=== PATIENT | female | born 1960 | race Caucasian/White ===

== ENCOUNTER 2017-01-28 10:05 | Emergency (ER) | payer SELFPAY ==
[2017-01-28 10:06] VITALS: BMI 19.4
[2017-01-28 10:13] VITALS: TEMP 98
--- NOTE | 2017-01-28 11:41 | C.PDOC ---
History Of Present Illness 56 y/o female with PMHx of HTN status post Craniotomy for subdural presents to ED with complaints of headache and dizzy/lightheaded when walking and for staple removal. Patient states she has headache since surgery on 01/06, but worse today, possibly because of non compliance with medication, recent travel. denies any new falls. Patient states she saw Dr. Sarbjit Castillo yesterday and was advised to come to ED for staple removal and CT scan of head. Patient denies fever, chills, nausea, vomiting or any other complaints at this time. Patient is poor historian Time Seen by Provider: 01/28/17 10:41 Chief Complaint (Nursing): Headache History Per: Patient, Family History/Exam Limitations: no limitations Onset/Duration Of Symptoms: Days Current Symptoms Are (Timing): Still Present Quality: "Pain" Associated Symptoms: Blurred Vision. denies: Nausea, Vomiting Past Medical History Reviewed: Historical Data, Nursing Documentation, Vital Signs Vital Signs: Last Vital Signs Temp 98 F 01/28/17 10:12 Pulse 80 01/28/17 15:00 Resp 20 01/28/17 15:00 BP 160/95 H 01/28/17 15:00 Pulse Ox 98 01/28/17 15:25 - Medical History PMH: HTN Surgical History: No Surg Hx Family History: States: No Known Family Hx - Social History Hx Tobacco Use: Yes Hx Alcohol Use: No Hx Substance Use: No - Immunization History Hx Tetanus Toxoid Vaccination: No Hx Influenza Vaccination: No Hx Pneumococcal Vaccination: No Review Of Systems Constitutional: Negative for: Fever, Chills Cardiovascular: Negative for: Chest Pain Respiratory: Negative for: Shortness of Breath Gastrointestinal: Negative for: Nausea, Vomiting Skin: Negative for: Rash Neurological: Positive for: Headache, Dizziness. Negative for: Weakness, Numbness Physical Exam - Physical Exam Additional Physical Exam Comments: Constitutional: No acute distress. WDWN. Head: Well healed incision with pepe intact to right Temporal area Eyes: PERRL. EOMI. ENT: Moist mucous membranes. Neck: Supple. Cardiovascular: Regular rate and rhythm. Chest: No tenderness. Respiratory: Clear to auscultation bilaterally. GI: Soft. Nontender. Nondistended. Normoactive bowel sounds. No rebound. No guarding. Back: No CVA and no mid-line tenderness. Musculoskeletal: No tenderness or swelling of extremities. Skin: No rash. Neurologic: Alert, no focal deficit. ED Course And Treatment - Laboratory Results Result Diagrams: 01/28/17 11:41 01/28/17 11:41 O2 Sat by Pulse Oximetry: 98 (RA) Pulse Ox Interpretation: Normal Medical Decision Making Medical Decision Making: Plan: CT head w/o Contrast 1213 pm discussed with radiology. 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 notified that patient hit her head while in ct scan. [address] Chen, who reviewed pt's head ct today with her head cts that were uploaded from hospital in [place]. Per Dr Chen, pt has good post op result, nothing to do at this time, pepe to be removed. Disposition Discussed With Dr.: Zac Chen Doctor Will See Patient In The: Office Counseled Patient/Family Regarding: Studies Performed, Diagnosis, Need For Followup, Rx Given - Disposition Referrals: Leslie Castillo MD [Staff Provider] - Zac Chen MD [Staff Provider] - Disposition: HOME/ ROUTINE Disposition Time: 15:43 Condition: STABLE Additional Instructions: Please take medications for blood pressure as prescribed. Take 3 more days of dexamethasone since you didn't take upon discharge from hospital. COntinue taking Tylenol #3 for pain. Follow up with Dr Castillo and Dr Chen, the neurosurgeon in the next week. Return to ER for any worse symptoms. Prescriptions: Acetaminophen with Codeine [Tylenol with Codeine #3 Tablet] 1 each PO Q4 #10 tablet Dexamethasone [Decadron] 2 mg PO BID #7 tab Instructions: Subdural Hematoma (ED) Forms: [facility] (Korean), General Discharge Instructions - Clinical Impression Clinical Impression: Headache, Removal of suture, Subdural hematoma - PA / CONTROL CLERK [employer]OD [employer] BEVERAGE / Resident Statement MD/DO has reviewed & agrees with the documentation as recorded. - Scribe Statement The provider has reviewed the documentation as recorded by the Myriamibsandra Fields All medical record entries made by the Scribe were at my direction and personally dictated by me. I have reviewed the chart and agree that the record accurately reflects my personal performance of the history, physical exam, medical decision making, and the department course for this patient. I have also personally directed, reviewed, and agree with the discharge instructions and disposition. Suture Removal/Wound Check - Time Time: 15:15 - Chief Complaints Chief complaint: Other (Staple removal ) - Notes: Notes:: 19 pepe removed from well healed incision to right temporal area
[2017-01-28 11:44] LABS: BASO # 0.1 K/uL (0.0-0.2); BASO % 0.7 % (0.0-2.0); EOS % 0.4 % (0.0-4.0); HEMATOCRIT 32.7 % (34.0-47.0); LYMPH % 11.8 % (20.0-40.0); MEAN CELL VOLUME 97.1 fL (81.0-99.0); MEAN CORPUSCULAR HEMOGLOBIN 32.8 pg (27.0-31.0); MEAN CORPUSCULAR HGB CONC 33.8 g/dL (33.0-37.0); MEAN PLATELET VOLUME 7.2 fL (7.2-11.7); MONO # 0.9 K/uL (0.0-0.8); MONO % 11.4 % (0.0-10.0); NRBC % 0.1 % (0.0-2.0); WHITE BLOOD COUNT 8.3 K/uL (4.8-10.8)
[2017-01-28 11:55] LABS: RBC URINE 2 /hpf (0-3); URINE BILIRUBIN NEGATIVE (NEGATIVE); URINE BLOOD NEGATIVE (NEGATIVE); URINE COLOR Yellow (YELLOW); URINE GLUCOSE (UA) NORMAL (Normal); URINE KETONE NEGATIVE (NEGATIVE); URINE LEUKOCYTE ESTERASE NEG Leu/uL (Negative); URINE PROTEIN NEGATIVE (NEGATIVE); WBC URINE 1 /hpf (0-5)
[2017-01-28 11:57] LABS: ALB/GLOB RATIO 1.4 (1.0-2.1); ALKALINE PHOSPHATASE 74 U/L (38-126); ALT/SGPT 82 U/L (9-52); AST/SGOT 25 U/L (14-36); BILIRUBIN,TOTAL 0.7 mg/dL (0.2-1.3); BLOOD UREA NITROGEN 13 mg/dL (7-17); CALCIUM 8.5 mg/dl (8.6-10.4); CARBON DIOXIDE 25 mmol/L (22-30); CHLORIDE 96 mmol/L (98-107); GFR AFRICAN-AMERICAN > 60; GLUCOSE,RANDOM 95 mg/dL (65-105); POTASSIUM 4.3 mmol/L (3.6-5.2); SODIUM 131 mmol/L (132-148); TOTAL PROTEIN 6.8 g/dL (6.3-8.3)
--- NOTE | 2017-01-28 12:14 | CT ---
PROCEDURE: CT HEAD WITHOUT CONTRAST. HISTORY: Headache. recent craniotomy right side for sah COMPARISON: None available. TECHNIQUE: Axial computed tomography images were obtained through the head/brain without intravenous contrast. Radiation dose: Total exam DLP = 709.82 mGy-cm. This CT exam was performed using one or more of the following dose reduction techniques: Automated exposure control, adjustment of the mA and/or kV according to patient size, and/or use of iterative reconstruction technique. FINDINGS: HEMORRHAGE: There is a mixed density right convexity subdural hematoma measuring 9 mm maximum with without significant mass effect, midline shift or herniation. There is focal increased attenuation in the parietal convexity suggesting superimposed small acute hemorrhage. BRAIN: There are mild chronic microangiopathic changes. There is no mass or mass effect. VENTRICLES: There is mild global parenchymal volume loss and proportionate enlargement of the ventricles and cortical sulci, advanced for the patient's age. CALVARIUM: Status post right parietal craniotomy for drainage of intracranial hemorrhage as suggested in the clinical history. PARANASAL SINUSES: Predominantly clear anges. MASTOID AIR CELLS: Predominantly clear. OTHER FINDINGS: None. IMPRESSION: 1. Acute on chronic right convexity subdural hematoma measuring 9 mm in maximum with without significant mass effect, midline shift or herniation. 2. Mild chronic microangiopathic changes. 3. Mild global parenchymal volume loss, slightly advanced for the patient's age the Findings were discussed with MUKESH Ricketts on 01/28/2017 at 12:12 p.m.
[2017-01-28 16:05] VITALS: BP 159/96; PULSE 69; RESP 18; O2SAT 97
== END 2017-01-28 16:10 | disposition home or self-care (01) ==
LOC: C.ER 10:05
DX: R51 Headache (principal); I62.03 Nontraumatic chronic subdural hemorrhage; Z48.02 Encounter for removal of sutures
CPT/HCPCS: 70450; 80053; 81001; 85025; 99285; J8540

== ENCOUNTER 2018-02-18 19:25 | Emergency (ER) | payer SELFPAY ==
[2018-02-18 19:25] VITALS: BMI 19.4
[2018-02-18 19:36] VITALS: TEMP 97.7; O2SAT 99
[2018-02-18] MEDS ORDERED: Sodium Chloride 0.9% 1,000 ML IV ONE (20:00)
[2018-02-18] MEDS ORDERED: Pantoprazole 80 MG in Sodium Chloride 0.9% 100 ML IV STA (20:00)
--- NOTE | 2018-02-18 20:00 | C.PDOC ---
History Of Present Illness Patient presents to the ER with a complaint of abdominal pain for the past 2 days. Patient states she has also noticed blood in her colostomy bag. Denies fever, chills, nausea, vomiting. Time Seen by Provider: 02/18/18 19:54 Chief Complaint (Nursing): Abdominal Pain History Per: Patient History/Exam Limitations: no limitations Onset/Duration Of Symptoms: Days (2) Current Symptoms Are (Timing): Still Present Location Of Pain/Discomfort: Other (Around colostomy) Quality Of Discomfort: Unable To Describe Associated Symptoms: Other (Blood in stoma bag). denies: Fever, Chills, Nausea, Vomiting Exacerbating Factors: None Alleviating Factors: None Recent travel outside of the [place]: No Abnormal Vaginal Bleeding: No Past Medical History Reviewed: Historical Data, Nursing Documentation, Vital Signs Vital Signs: Last Vital Signs Temp 97.7 F 02/18/18 19:30 Pulse 64 02/18/18 19:30 Resp 20 02/18/18 19:30 BP 175/82 H 02/18/18 19:30 Pulse Ox 99 02/18/18 19:30 - Medical History PMH: HTN Family History: States: No Known Family Hx - Social History Hx Tobacco Use: Yes Hx Alcohol Use: No Hx Substance Use: No - Immunization History Hx Tetanus Toxoid Vaccination: No Hx Influenza Vaccination: No Hx Pneumococcal Vaccination: No Review Of Systems Constitutional: Negative for: Fever, Chills Cardiovascular: Negative for: Chest Pain, Palpitations Respiratory: Negative for: Cough, Shortness of Breath Gastrointestinal: Positive for: Abdominal Pain (Around colostomy), Other (Blood in colostomy bag). Negative for: Nausea, Vomiting Neurological: Negative for: Weakness, Numbness, Dizziness Physical Exam - Physical Exam Appears: Non-toxic Skin: Warm, Dry Head: Normacephalic Oral Mucosa: Moist Chest: Symmetrical, No Tenderness Cardiovascular: Rhythm Regular Respiratory: No Rales, No Rhonchi, No Wheezing Gastrointestinal/Abdominal: Soft, Tenderness (Mild around colostomy), Distention (Slightly), No Guarding, No Rebound, Other (Large subumbilical surgical scar, Left sided colostomy, Erythema around stoma no active bleeding) Back: No CVA Tenderness Neurological/Psych: Oriented x3 ED Course And Treatment - Laboratory Results Result Diagrams: 02/18/18 20:10 02/18/18 20:10 ECG: Interpreted By Me, Viewed By Me ECG Rhythm: Sinus Bradycardia, 1st Degree HB (AV) Rate From EC O2 Sat by Pulse Oximetry: 99 (room air) Pulse Ox Interpretation: Normal Progress Note: Blood work, EKG, and urinalysis ordered. IV fluids and protonix administered. Reevaluation Time: 23:10 Reassessment Condition: Improved Medical Decision Making Medical Decision Making: Upon provider reevaluation patient is feeling better, is medically stable, and requires no further treatment in the ED at this time. Patient will be discharged home . Counseling was provided and all questions were answered regarding diag nosis and need for follow up withlali rodgers There is agreement to discharge plan. Return if symptoms persist or worsen. Disposition Counseled Patient/Family Regarding: Studies Performed, Diagnosis, Need For Followup - Disposition Referrals: Leslie Castillo MD [Staff Provider] - Disposition: HOME/ ROUTINE Disposition Time: 20:00 Condition: FAIR Additional Instructions: Please follow up with Instructions: Acute Pelvic Pain (DC), Uterine Fibroids (DC) Forms: [employer] (Iraqi) - Clinical Impression Clinical Impression: Abdominal pain, Visit for wound check, Fibroid uterus - PA / DEVELOPMENT MECHANIC / Resident Statement MD/DO has reviewed & agrees with the documentation as recorded. - Scribe Statement The provider has reviewed the documentation as recorded by the Scribsandra Zaldivar All medical record entries made by the Scribe were at my direction and personally dictated by me. I have reviewed the chart and agree that the record accurately reflects my personal performance of the history, physical exam, medical decision making, and the department course for this patient. I have also personally directed, reviewed, and agree with the discharge instructions and disposition.
[2018-02-18] MEDS ORDERED: Sodium Chloride 0.9% 1,000 ML ONE (20:14)
[2018-02-18 20:21] LABS: BASO # 0.1 K/uL (0.0-0.2); BASO % 0.6 % (0.0-2.0); EOS # 0.1 K/uL (0.0-0.7); EOS % 1.8 % (0.0-4.0); LYMPH # 2.6 K/uL (1.0-4.3); LYMPH % 30.7 % (20.0-40.0); MEAN CELL VOLUME 98.7 fL (81.0-99.0); MEAN CORPUSCULAR HEMOGLOBIN 32.6 pg (27.0-31.0); MONO # 0.8 K/uL (0.0-0.8); MONO % 9.5 % (0.0-10.0); NEUT # 4.9 K/uL (1.8-7.0); NEUT % 57.4 % (50.0-75.0); NRBC % 0.1 % (0.0-2.0); RBC 3.99 Mil/uL (3.80-5.20); RED CELL DISTRIBUTION WIDTH 13.7 % (11.5-14.5); WHITE BLOOD COUNT 8.6 K/uL (4.8-10.8)
[2018-02-18 20:29] LABS: PROTHROMBIN TIME 11.2 SECONDS (9.7-12.2)
[2018-02-18 20:31] LABS: SQUAMOUS EPITHIAL 1 /hpf (0-5); URINE BILIRUBIN NEGATIVE (NEGATIVE); URINE BLOOD NEGATIVE (NEGATIVE); URINE CLARITY Clear (Clear); URINE COLOR Straw (YELLOW); URINE GLUCOSE (UA) NORMAL (Normal); URINE LEUKOCYTE ESTERASE TRACE Leu/uL (Negative); URINE PROTEIN NEGATIVE (NEGATIVE); URINE UROBILINOGEN NORMAL mg/dL (0.2-1.0)
[2018-02-18 20:34] LABS: ALB/GLOB RATIO 1.5 (1.0-2.1); ALBUMIN 4.7 g/dL (3.5-5.0); ALT/SGPT 17 U/L (9-52); AST/SGOT 24 U/L (14-36); BLOOD UREA NITROGEN 24 mg/dL (7-17); CALCIUM 9.4 mg/dl (8.6-10.4); GFR NON-AFRICAN AMERICAN > 60
[2018-02-18] MEDS ORDERED: Iodixanol 320 MG/ML 100 ML BOTTLE IV ONE (22:14)
[2018-02-18 23:21] VITALS: BP 130/80; PULSE 80; RESP 14
--- NOTE | 2018-02-19 11:26 | CT ---
Date of service: 02/18/2018 PROCEDURE: CT Abdomen and Pelvis with contrast HISTORY: abd pain, left colostomy COMPARISON: 09/06/2014 TECHNIQUE: Contrast dose: 100 mL Visipaque 320 Radiation dose: Total exam DLP = 313.59 mGy-cm. This CT exam was performed using one or more of the following dose reduction techniques: Automated exposure control, adjustment of the mA and/or kV according to patient size, and/or use of iterative reconstruction technique. FINDINGS: LOWER THORAX: Unremarkable. LIVER: Unremarkable. No gross lesion or ductal dilatation. GALLBLADDER AND BILE DUCTS: Cholelithiasis. No mural thickening or pericholecystic fluid. PANCREAS: Unremarkable. No gross lesion or ductal dilatation. SPLEEN: Unremarkable. ADRENALS: Right adrenal nodule, 1.3 cm diameter. No significant change from prior CT of 09/06/2014. unremarkable left adrenal. KIDNEYS AND URETERS: Unremarkable. No hydronephrosis. No solid mass. VASCULATURE: Unremarkable. No aortic aneurysm. There is atherosclerotic calcification of the abdominal aorta. BOWEL: Partial left hemicolectomy. Left lower quadrant colostomy. No bowel obstruction. No other abnormal bowel loops. APPENDIX: Not positively identified. No secondary findings to suggest acute appendicitis. PERITONEUM: Unremarkable. No free fluid. No free air. LYMPH NODES: Unremarkable. No enlarged lymph nodes. BLADDER: Suboptimally distended. Mild thickening of the wall likely due to inadequate distention. REPRODUCTIVE: Globular enlarged uterus containing a large extensively calcified fibroid, approximately 6.8 cm in diameter. BONES: No acute fracture. OTHER FINDINGS: None. IMPRESSION: Status post partial left colectomy. Left lower quadrant colostomy. Cholelithiasis without evidence of cholecystitis. Stable right adrenal nodule, likely adenoma. Calcified uterine fibroid. No additional abnormality. The preliminary findings for this examination were reported by [facility] at 11:02 p.m. on 02/18/2018. There is discordance of this report with the preliminary findings. There is not felt to be evidence of enteritis on the basis of this examination.
--- NOTE | 2018-02-19 22:25 | CARD ---
APPROVED REPORT Date of service: 02/18/2018 EKG Measurement Heart [id number] ID [id number] <Conclusion> Sinus bradycardia Otherwise normal ECG
== END 2018-02-18 23:21 | disposition home or self-care (01) ==
LOC: C.ER 19:25
DX: R10.9 Unspecified abdominal pain (principal); D25.9 Leiomyoma of uterus, unspecified; I10 Essential (primary) hypertension; Z72.0 Tobacco use
CPT/HCPCS: 74177; 80053; 81001; 85025; 85610; 85730; 86850; 86900; 93005; 96374; 96375; 99284; C9113; J1885; J7030; Q9967

== ENCOUNTER 2018-05-19 06:30 | Day surgery (SDC) | payer OTHER ==
[2018-05-19 07:02] VITALS: BMI 22.4
[2018-05-19] MEDS ORDERED: Lactated Ringer's 1,000 ML IV ONE (08:20)
--- NOTE | 2018-05-19 08:21 | CP.SDSHP ---
Same Day Surgery H & P - History Proposed Procedure: COLONSCOPY Pre-Op Diagnosis: SEE NOTES - Previous Medical/Surgical History Cardiac: Hypertension Neuro: Other Misc: Other Pain: 4.Moderate Pain Previous Surgical History: COLOSTOMY - Allergies Allergies: Allergies No Known Allergies Allergy (Verified 05/19/18 07:00) - Physical Exam General Appearance: N Vital Signs: Vital Signs 05/19/18 07:20 Temperature 97.8 F Pulse Rate 53 L Respiratory 19 Rate Blood Pressure 123/63 O2 Sat by Pulse 100 Oximetry Mental Status: Alert & Oriented x3 Neuro: WNL Heart: WNL Lungs: WNL GI: Other - {Optional Preform as Required} Breast: WNL Abdomen: Other Rectal: Other Integument: WNL : WNL Ortho: WNL ENT: WNL - Impression Pt. Evaluated Today:Candidate for Anesthesia & Procedure: Yes - Date & Time Time: 08:21 Short Stay Discharge - Short Stay Discharge Admitting Diagnosis/Reason for Visit: DIARRHEA Disposition: HOME/ ROUTINE
[2018-05-19] MEDS ORDERED: Propofol 10 mg/ml Inj (20 ML) ONE ×2 (08:27→08:30)
[2018-05-19 08:56] VITALS: TEMP 96.9
[2018-05-19] MEDS ORDERED: Belladonna-Phenobarbital PO ONE (09:20)
[2018-05-19 09:42] VITALS: O2SAT 100
[2018-05-19 10:28] VITALS: BP 130/67; PULSE 67; RESP 16
== END 2018-05-19 10:20 | disposition home or self-care (01) ==
LOC: C.ENDO 06:30
PROVIDERS: ATTEND Specialist
DX: R19.7 Diarrhea, unspecified (principal); K57.30 Diverticulosis of large intestine without perforation or abscess without bleeding; K64.8 Other hemorrhoids
CPT/HCPCS: 45380; 88305; J2001; J2704; J7120

== ENCOUNTER 2018-07-01 08:35 | Outpatient (CLI) | payer OTHER | END 2018-07-01 08:36 | disposition home or self-care (01) | LOC: C.PAT 08:35 | DX: Z01.818 Encounter for other preprocedural examination (principal); Z93.3 Colostomy status ==

== ENCOUNTER 2018-07-13 05:50 | Inpatient (IN) | payer OTHER ==
[2018-07-13 06:23] VITALS: BMI 23.8
[2018-07-13] MEDS ORDERED: Bupivacaine 0.25% 20 ML INJ IJ ONE (07:42)
[2018-07-13] MEDS ORDERED: Bupivacaine HCl 0.5% PF (10 ml) Inj ONE (07:42)
[2018-07-13] MEDS ORDERED: Lidocaine/Epinephrine 1% 1:100000 10 ML IJ ONE (07:42)
[2018-07-13] MEDS ORDERED: ceFAZolin 1 gm in NS 1 GM/100 ML BAG IVPB ONE ×2 (07:43→09:01)
[2018-07-13] MEDS ORDERED: metroNIDAZOLE IV 500 mg/100 ml 500 MG/100 ML BAG ONE ×2 (07:43→13:44)
[2018-07-13] MEDS ORDERED: Midazolam 2 MG/2 ML VIAL ONE (08:09)
[2018-07-13] MEDS ORDERED: Propofol 10 mg/ml Inj (20 ML) ONE (08:09)
[2018-07-13] MEDS ORDERED: Sodium Citrate/Citric Acid 15 ml Sol PO ONE ×2 (08:30→08:45)
[2018-07-13] MEDS ORDERED: Succinylcholine Chloride 20 mg/ml Syr (5 ml) IV ONE (08:34)
[2018-07-13] MEDS ORDERED: BUPIVACAINE 0.125%/0.9% NACL 600 ML IJ ONE (11:00)
[2018-07-13] MEDS ORDERED: ePHEDrine 50 mg/ml Inj ONE (12:20)
[2018-07-13] MEDS ORDERED: Vasopressin 20 Units/ml Inj ONE (12:23)
[2018-07-13] MEDS ORDERED: Neostigmine 1:1000 (1 mg/ml) Inj ONE (13:18)
[2018-07-13] MEDS ORDERED: ceFAZolin 1 gm in NS 2 GM/200 ML BAG IVPB ONE (13:23)
[2018-07-13] MEDS ORDERED: Morphine 4 MG/ML VIAL ONE (14:27)
--- NOTE | 2018-07-13 14:53 | PCM.SURG1 ---
Surgeon's Initial Post Op Note - Surgeon's Notes Surgeon: Dieter Gavin MD Custom Bookbinder: Lou Saba, PGY-2; ANNA Schneider Type of Anesthesia: General Endo Anesthesia Administered By: Dr Conner Pre-Operative Diagnosis: Colostomy requiring reversal, cholelithiasis Operative Findings: Extensive adhesions, large uterine fibroid, rectal foreign body Post-Operative Diagnosis: Colostomy requiring reversal, cholelithiasis, uterine fibroid requiring resection Operation Performed: Laparotomy, extensive lysis of adhesions, colon resection, rectal resection, primary anastomosis of colon and rectum, rectal foreign body removal, myomectomy, cholecystectomy, and OnQ placement Specimen/Specimens Removed: rectal foreign body, large uterine fibroid, gallbladder, colon and rectal mucosal donuts, colon resection, rectal resection Estimated Blood Loss: EBL {In ML}: 200 Blood Products Given: N/A Drains Used: Xavi Hathaway Post-Op Condition: Fair Date of Surgery/Procedure: 07/13/18 Time of Surgery/Procedure: 14:54
[2018-07-13] MEDS: HYDROmorphone 0.5 mg/0.5 ml ISec IVP PRN ×8 (14:56→22:48)
[2018-07-13] MEDS ORDERED: Acetaminophen IV 1,000 MG in Premixed IV 1 EA IV ONE (14:57)
[2018-07-13] MEDS ORDERED: HYDROmorphone 0.5 mg/0.5 ml ISec ONE ×2 (14:58→15:09)
[2018-07-13] MEDS ORDERED: Lactated Ringer's 1,000 ML IV ONE ×2 (16:59)
[2018-07-13] MEDS: Lactated Ringer's 1,000 ML IV SCH (20:36)
--- NOTE | 2018-07-13 20:51 | CP.PCM.HP ---
Past Patient History - Past Medical History & Family History Past Medical History?: Yes - Past Social History Smoking Status: Light Smoker < 10 Cigarettes Daily - CARDIAC Hx Cardiac Disorders: Yes Hx Heart Attack: No Hx Hypertension: Yes - PULMONARY Hx Respiratory Disorders: No Hx Asthma: No Hx Bronchitis: No Hx Chronic Obstructive Pulmonary Disease (COPD): No Hx Emphysema: No Hx Sleep Apnea: No - NEUROLOGICAL Hx Neurological Disorder: No Hx Alzheimer's Disease: No HX Cerebrovascular Accident: No Hx Dizziness: Yes (hx subdural hematoma 1 year ago) Hx Seizures: No Hx Transient Ischemic Attacks (TIA): No - HEENT Hx HEENT Problems: No - RENAL Hx Chronic Kidney Disease: No - ENDOCRINE/METABOLIC Hx Endocrine Disorders: No Other/Comment: hypokalemia - HEMATOLOGICAL/ONCOLOGICAL Hx Blood Disorders: No Hx Anemia: Yes Hx Blood Transfusions: Yes Hx Blood Transfusion Reaction: No Hx Cancer: No Hx Chemotherapy: No - INTEGUMENTARY Hx Dermatological Problems: No - MUSCULOSKELETAL/RHEUMATOLOGICAL Hx Musculoskeletal Disorders: No Hx Arthritis: No Hx Back Pain: No Hx Falls: Yes (2016; NEEDED SURGERY FOR CRANIAL HEMATOMA) Hx Fractures: No Hx Herniated Disk: No - GASTROINTESTINAL Hx Gastrointestinal Disorders: Yes Hx Bowel Surgery: Yes (COLON RESECTION WITH COLOSTOMY) Hx Colostomy: Yes Hx Diverticulitis: Yes (2017) Hx Gastroesophageal Reflux: Yes - GENITOURINARY/GYNECOLOGICAL Hx Genitourinary Disorders: No - PSYCHIATRIC Hx Psychophysiologic Disorder: Yes Hx Depression: Yes Hx Substance Use: No - SURGICAL HISTORY Hx Surgeries: Yes Hx Section: Yes Hx Tonsillectomy: Yes Other/Comment: Lt forearm. brain surgery. Colon surgery 06/2017, with colosotmy - ANESTHESIA Hx Anesthesia: Yes Hx Anesthesia Reactions: No Hx Malignant Hyperthermia: No Has any member of the family had a problem w/ anesthesia?: No Meds Allergies/Adverse Reactions: Allergies Allergy/AdvReac Type Severity Reaction Status Date / Time No Known Allergies Allergy Verified 05/19/18 07:00 Physical Exam - Constitutional Appears: Well - Head Exam Head Exam: ATRAUMATIC, NORMAL INSPECTION, NORMOCEPHALIC - Eye Exam Eye Exam: EOMI, Normal appearance, PERRL Pupil Exam: NORMAL ACCOMODATION, PERRL - ENT Exam ENT Exam: Mucous Membranes Moist, Normal Exam - Neck Exam Neck exam: Positive for: Normal Inspection - Respiratory Exam Respiratory Exam: Decreased Breath Sounds - Cardiovascular Exam Cardiovascular Exam: REGULAR RHYTHM, +S1, +S2 - GI/Abdominal Exam GI & Abdominal Exam: Diminished Bowel Sounds, Soft - Rectal Exam Rectal Exam: Deferred - Neurological Exam Neurological exam: Oriented x3 Results - Vital Signs Recent Vital Signs: Last Vital Signs Temp 98.3 F 07/13/18 17:45 Pulse 81 07/13/18 17:45 Resp 11 L 07/13/18 17:45 BP 133/83 07/13/18 17:45 Pulse Ox 96 07/13/18 17:45
[2018-07-14] MEDS: Lactated Ringer's 1,000 ML IV SCH ×2 (01:00→11:00)
[2018-07-14] MEDS: HYDROmorphone 0.5 mg/0.5 ml ISec IVP PRN ×4 (01:48→14:53)
--- NOTE | 2018-07-14 02:34 | OP ---
PROCEDURE DATE: 07/13/2018 DESCRIPTION OF PROCEDURE: I was called into the OR by Dr. Gavin, who was doing an exploratory laparotomy with plan for descending colon and rectal resection and colostomy reversal. During the exploratory laparotomy, Dr. Gavin observed the uterus to be enlarged with a mass and I was called in for surgical evaluation. After scrubbing into the case, I further evaluated the uterus and noted it to be enlarged with multiple fibroids. The largest one was along the posterior uterine wall approximately 6 cm in size and noted to be very hard consistent with most likely a calcified fibroid. I advised Dr. Gavin that this was a benign finding and the patient was postmenopausal with no history of bleeding or pelvic pain. He requested removal of that fibroid to allow him better access to this operative field and surgical bowel resection. So, a myomectomy was performed. The uterine myometrium was injected with dilute solution of vasopressin and a vertical incision was made with the Bovie. The incision was extended through the myometrium and the fibroid pseudocapsule. The calcified fibroid was then visualized. To assist in uterine manipulation, the superior portion of the uterus was grasped with a towel clamp. The fibroid was then enucleated with sharp and blunt dissection in the plane between the myometrium and the myoma. This as stated involved blunt and sharp dissection. Good hemostasis was observed. The defect in the myometrium was closed in two layers. The initial layer was running locked suture of 2-0 Vicryl. This was followed by a running and alternately running locked interrupted sutures at the superficial layer. Excellent hemostasis was obtained. Rick Street MD
[2018-07-14 06:46] LABS: BASO % 0.1 % (0.0-2.0); LYMPH # 1.3 K/uL (1.0-4.3); LYMPH % 9.2 % (20.0-40.0); MEAN CELL VOLUME 88.7 fL (81.0-99.0); MEAN CORPUSCULAR HEMOGLOBIN 29.4 pg (27.0-31.0); MEAN CORPUSCULAR HGB CONC 33.2 g/dL (33.0-37.0); MEAN PLATELET VOLUME 8.9 fL (7.2-11.7); MONO # 0.7 K/uL (0.0-0.8); MONO % 4.8 % (0.0-10.0); NEUT # 12.3 K/uL (1.8-7.0); NEUT % 85.9 % (50.0-75.0); PLATELET COUNT 239 K/uL (130-400); RBC 3.73 Mil/uL (3.80-5.20); RED CELL DISTRIBUTION WIDTH 12.7 % (11.5-14.5); WHITE BLOOD COUNT 14.3 K/uL (4.8-10.8)
[2018-07-14 07:33] LABS: ALB/GLOB RATIO 1.4 (1.0-2.1); ALBUMIN 3.2 g/dL (3.5-5.0); ALT/SGPT 28 U/L (9-52); AST/SGOT 47 U/L (14-36); BLOOD UREA NITROGEN 10 mg/dL (7-17); GFR NON-AFRICAN AMERICAN > 60
[2018-07-14 08:23] LABS: MONOCYTE 3 % (0-10); TOTAL CELLS COUNTED 100
[2018-07-14 08:27] LABS: LYMPHOCYTE 6 % (20-40); NEUTROPHIL 63 % (50-75)
[2018-07-14 08:29] LABS: PLATELET ESTIMATE NORMAL (NORMAL)
[2018-07-14 08:30] LABS: GIANT PLATELETS PRESENT; LARGE PLATELETS PRESENT; TOXIC GRANULATION PRESENT
[2018-07-14] MEDS ORDERED: oxyCODONE 5 mg Immediate Release Tab PO PRN (11:08)
--- NOTE | 2018-07-14 13:59 | CP.PCM.PN ---
<Stanislaw Gurrola - Last Filed: 07/14/18 14:01> Subjective - Date & Time of Evaluation Date of Evaluation: 07/14/18 Time of Evaluation: 06:30 - Subjective Subjective: Surgery Progress note- Dr. Gavin Had incisional pain overnight. Moderately controlled with current pain regiment. OnQ rate increased to 7. + flatus, denies BM. Dressing incisions C/D/I w/ minimal strike through. Fabrice drain 95cc serosang fluid. Mason 160cc clear urine. Denies fevers, chills, nausea, vomiting, diarrhea. Objective - Vital Signs/Intake and Output Vital Signs (last 24 hours): Temp Pulse Resp BP Pulse Ox 98.8 F 72 20 136/74 94 L 07/14/18 08:40 07/14/18 08:40 07/14/18 08:40 07/14/18 08:40 07/14/18 08:40 Intake and Output: 07/14/18 07/14/18 06:59 18:59 Intake Total 800 Output Total 270 Balance 530 - Medications Medications: Current Medications Acetaminophen (Tylenol 325mg Tab) 975 mg PO Q6 [facility] Last Admin: 07/14/18 13:40 Dose: 975 mg Cyclobenzaprine HCl (Flexeril) 5 mg PO TID [facility] Docusate Sodium (Colace) 100 mg PO BID [facility] Last Admin: 07/14/18 09:18 Dose: 100 mg Hydromorphone HCl (Dilaudid) 0.5 mg IVP Q3H PRN PRN Reason: Pain, severe (8-10) Last Admin: 07/14/18 08:44 Dose: 0.5 mg BUPIVACAINE 0.125%/0.9% NACL (Bupivacaine-Ns 0.125% On-Q School Patrol) 600 mls @ 4 mls/hr IJ ONCE ONE Stop: 07/19/18 16:59 Lactated Ringer's (Lactated Ringer's) 1,000 mls @ 100 mls/hr IV .Q10H [facility] Last Admin: 07/14/18 11:00 Dose: Not Given Ketorolac Tromethamine (Toradol) 15 mg IVP Q6 PRN PRN Reason: Pain, moderate (4-7) Last Admin: 07/14/18 06:23 Dose: 15 mg Ondansetron HCl (Zofran Inj) 4 mg IVP Q4H PRN PRN Reason: Nausea/Vomiting Oxycodone HCl (Oxycodone Immediate Release Tab) 5 mg PO Q6 PRN PRN Reason: Pain, moderate (4-7) Last Admin: 07/14/18 11:27 Dose: 5 mg - Labs Labs: 07/14/18 06:35 07/14/18 06:35 - Constitutional Appears: Non-toxic, No Acute Distress - Head Exam Head Exam: ATRAUMATIC - Eye Exam Eye Exam: EOMI. absent: Scleral icterus - ENT Exam ENT Exam: Mucous Membranes Moist - Respiratory Exam Respiratory Exam: NORMAL BREATHING PATTERN. absent: Accessory Muscle Use, Respiratory Distress - Cardiovascular Exam Cardiovascular Exam: REGULAR RHYTHM. absent: Bradycardia, Tachycardia - GI/Abdominal Exam GI & Abdominal Exam: Soft, Tenderness (tender around midline incision. Left dressing C/D/I w/ some serosang strikethrough). absent: Distended, Firm, Guarding, Rigid, Rebound Additional comments: Fabrice drain 95cc serosang fluid - Neurological Exam Neurological Exam: Alert, Awake, Oriented x3 - Psychiatric Exam Psychiatric exam: Normal Affect - Skin Skin Exam: Intact, Warm Assessment and Plan - Assessment and Plan (Free Text) Assessment: 58F s/p laparotomy, extensive LARISSA, colon & rectal resection, w/ primary anastomosis, removal of rectal foreign body, myomectomy, cholecystectomy, POD#1 Plan: - Pain control PRN; w/ OnQ, NORA Tylenol & Toradol - start CLD - anti-emetic PRN - d/c Mason, f/u ToV - OOb and ambulate - Incentive spirometer - further recs per Dr. Gavin [facility] <Dieter Gavin - Last Filed: 07/20/18 19:56> Objective - Vital Signs/Intake and Output Vital Signs (last 24 hours): Temp Pulse Resp BP Pulse Ox 97.4 F L 62 26 H 143/66 99 07/20/18 16:00 07/20/18 19:31 07/20/18 19:31 07/20/18 19:31 07/20/18 19:31 Intake and Output: 07/20/18 07/21/18 18:59 06:59 Intake Total 1090 240 Output Total 600 Balance 490 240 - Medications Medications: Current Medications Albuterol/Ipratropium (Duoneb 3 Mg/0.5 Mg (3 Ml) Ud) 3 ml INH RQ4 [facility] Last Admin: 07/20/18 19:31 Dose: 3 ml Amlodipine Besylate (Norvasc) 5 mg PO DAILY [facility] Last Admin: 07/20/18 09:57 Dose: 5 mg Atovaquone (Mepron) 750 mg PO BID [facility]; Protocol Last Admin: 07/20/18 18:18 Dose: 750 mg Docusate Sodium (Colace) 100 mg PO BID [facility] Last Admin: 07/20/18 18:19 Dose: Not Given Famotidine (Pepcid) 20 mg IVP DAILY [facility] Last Admin: 07/20/18 09:56 Dose: 20 mg Fluoxetine HCl (Prozac) 20 mg PO DAILY [facility] Last Admin: 07/20/18 09:56 Dose: 20 mg Heparin Sodium (Porcine) (Heparin) 5,000 units SC Q12H [facility] Last Admin: 07/20/18 08:08 Dose: 5,000 units Hydromorphone HCl (Dilaudid) 0.5 mg IVP Q8H PRN PRN Reason: Pain, severe (8-10) Last Admin: 07/20/18 14:27 Dose: 0.5 mg BUPIVACAINE 0.125%/0.9% NACL (Bupivacaine-Ns 0.125% On-Q School Patrol) 600 mls @ 7 mls/hr IJ ONCE ONE Stop: 07/21/18 01:42 Last Admin: 07/17/18 22:54 Dose: 7 mls/hr Doxycycline Hyclate 100 mg/ (Sodium Chloride) 100 mls @ 100 mls/hr IVPB Q12H [facility]; Protocol Last Admin: 07/20/18 09:57 Dose: 100 mls/hr Lidocaine (Lidoderm) 1 ea TD DAILY [facility] Last Admin: 07/20/18 09:57 Dose: 1 ea Methylprednisolone (Solu-Medrol) 40 mg IVP Q12 [facility] Last Admin: 07/20/18 09:56 Dose: 40 mg Metoprolol Tartrate (Lopressor) 50 mg PO BID [facility] Last Admin: 07/20/18 18:18 Dose: Not Given Potassium Chloride (K-Dur 20 Meq Er Tab) 40 meq PO BRK [facility] Last Admin: 07/20/18 08:08 Dose: 40 meq - Labs Labs: 07/20/18 06:09 07/20/18 06:07 Attending/Attestation - Attestation I have personally seen and examined this patient.: Yes I have fully participated in the care of the patient.: Yes I have reviewed all pertinent clinical information, including history, physical exam and plan: Yes Notes (Text): Pt was seen and examined at bedside Agree with above note and assessment Pt has poor pain control Start IV Toradol OOB to chair NG tube if vomits NPO, IVF DVT prophylaxis Plan d.w pt in detail
[2018-07-14 15:51] LABS: BANDS 28 % (0-2)
--- NOTE | 2018-07-14 16:48 | CP.PCM.PN ---
Subjective - Date & Time of Evaluation Date of Evaluation: 07/14/18 - Subjective Subjective: patient examined today no nausea no vomiting no dizziness no diarrhea no fever no shortness of breath Objective - Vital Signs/Intake and Output Vital Signs (last 24 hours): Temp Pulse Resp BP Pulse Ox 98.8 F 72 20 136/74 94 L 07/14/18 08:40 07/14/18 08:40 07/14/18 08:40 07/14/18 08:40 07/14/18 08:40 Intake and Output: 07/14/18 07/14/18 06:59 18:59 Intake Total 800 800 Output Total 270 475 Balance 530 325 - Medications Medications: Current Medications Acetaminophen (Tylenol 325mg Tab) 975 mg PO Q6 [facility] Last Admin: 07/14/18 13:40 Dose: 975 mg Cyclobenzaprine HCl (Flexeril) 5 mg PO TID [facility] Last Admin: 07/14/18 14:53 Dose: 5 mg Docusate Sodium (Colace) 100 mg PO BID [facility] Last Admin: 07/14/18 09:18 Dose: 100 mg Enoxaparin Sodium (Lovenox) 40 mg SC DAILY [facility] Hydromorphone HCl (Dilaudid) 0.5 mg IVP Q3H PRN PRN Reason: Pain, severe (8-10) Last Admin: 07/14/18 14:53 Dose: 0.5 mg BUPIVACAINE 0.125%/0.9% NACL (Bupivacaine-Ns 0.125% On-Q Programmer Developer) 600 mls @ 4 mls/hr IJ ONCE ONE Stop: 07/19/18 16:59 Lactated Ringer's (Lactated Ringer's) 1,000 mls @ 100 mls/hr IV .Q10H [facility] Last Admin: 07/14/18 11:00 Dose: Not Given Piperacillin Sod/Tazobactam Sod (Zosyn 3.375 Gm Iv Premix) 3.375 gm in 50 mls @ 100 mls/hr IVPB Q6H [facility]; Protocol Ketorolac Tromethamine (Toradol) 15 mg IVP Q6 PRN PRN Reason: Pain, moderate (4-7) Last Admin: 07/14/18 06:23 Dose: 15 mg Ondansetron HCl (Zofran Inj) 4 mg IVP Q4H PRN PRN Reason: Nausea/Vomiting Oxycodone HCl (Oxycodone Immediate Release Tab) 5 mg PO Q6 PRN PRN Reason: Pain, moderate (4-7) Last Admin: 07/14/18 11:27 Dose: 5 mg - Labs Labs: 07/14/18 06:35 07/14/18 06:35 - Constitutional Appears: Well - Head Exam Head Exam: ATRAUMATIC, NORMAL INSPECTION, NORMOCEPHALIC - Eye Exam Eye Exam: EOMI, Normal appearance, PERRL Pupil Exam: NORMAL ACCOMODATION, PERRL - ENT Exam ENT Exam: Mucous Membranes Moist, Normal Exam - Neck Exam Neck Exam: Full ROM, Normal Inspection. absent: Lymphadenopathy - Respiratory Exam Respiratory Exam: Decreased Breath Sounds - Cardiovascular Exam Cardiovascular Exam: REGULAR RHYTHM, +S1, +S2 - GI/Abdominal Exam GI & Abdominal Exam: Soft, Diminished Bowel Sounds - Rectal Exam Rectal Exam: Deferred - Neurological Exam Neurological Exam: Oriented x3 Assessment and Plan - Assessment and Plan (Free Text) Plan: plan discussed with patient and family moderate complexity of care bupivacaine colace dilaudid flexeril lidoderm lovenox oxycodone IR tab potassium chloride toradol tylenol zofran unj zosyn medications reviewed labs reviewed vitals reviewed
[2018-07-14] MEDS: Piperacill/Tazo 3.375gm in Dex 3.375 GM/50 ML BAG IVPB SCH ×2 (17:01→22:32)
[2018-07-14] MEDS ORDERED: Lidocaine 5% Patch TD SCH (17:30)
[2018-07-14] MEDS: Potassium Chl 40 mEq in D5-1/2 1,000 ML IV SCH (22:31)
[2018-07-15] MEDS: Potassium Chl 40 mEq in D5-1/2 1,000 ML IV SCH ×3 (04:38→18:15)
--- NOTE | 2018-07-15 04:48 | OP ---
PROCEDURE DATE: 07/13/2018 PREOPERATIVE DIAGNOSES: 1. Colostomy status. 2. Peritoneal adhesions, status post exploratory laparotomy for colon perforation. 3. Cholelithiasis. 4. Abdominal pain. 5. Fibroid uterus. POSTOPERATIVE DIAGNOSES: 1. Colostomy status. 2. Peritoneal adhesions, status post exploratory laparotomy for colon perforation. 3. Cholelithiasis. 4. Abdominal pain. 5. Fibroid uterus. 6. Rectal foreign body. 7. Rectal stricture( cannot pass EEA sizer) 8. Diverticulosis of the descending colon. PROCEDURES DONE: 1. Exploratory laparotomy. 2. Revision of old scar, 15 x 2 cm size. 3. Colostomy reversal. 4. Segmental resection of the descending colon. 5. Rectal resection due to stricture. 6. Myomectomy. 7. Extensive enterolysis and lysis of adhesions. 8. Bilateral On-Q pain catheter pump placement. 9. Colostomy site hernia repair, primary closure. 10. Proctosigmoidoscopy. 11. Removal of the rectal foreign body at the stricture site. 12. Open cholecystectomy. SURGEON: Dieter Gavin MD GOLF BALL TRIMMER: LISA Grimm and Lou Saba DO, PGY-2, resident Myomectomy was done by DEPUTY PROBATION OFFICER on-call. TYPE OF ANESTHESIA: General endotracheal tube anesthesia. ESTIMATED BLOOD LOSS: Around 200 mL. DRAINS: A 19 Ethiopian Fabrice drain was placed. COMPLICATIONS: None. INTRAOPERATIVE FINDINGS: The patient had extensive adhesions of the intestine to the anterior abdominal wall, colon to the anterior abdominal wall, the stomach and liver to the anterior abdominal wall, and the patient also had colostomy site hernia and there was extensive adhesions of the small bowel to the hernial sac and content and the patient had old scar that was revised and the patient also had diverticulosis of the distal part of the colon where the colostomy site was. The patient also had a rectal foreign body with stricture of the proximal rectum that was resected. The patient also had gallstones. DESCRIPTION OF PROCEDURE: On intraoperative steps, this is a 58-year-old female who was diagnosed with colostomy status with cholelithiasis with possible peritoneal adhesions status post exploratory laparotomy and fibroid uterus and the patient was consented for the open colostomy reversal, brought to the OR, placed supine on the operating table. After induction of the anesthesia, the abdomen was prepped and draped in the usual sterile fashion. An elliptical incision was made surrounding the old scar and old scar was completely excised and it was sent off the table for pathology. Peritoneal cavity was entered and the patient found to have extensive adhesions. It took approximately 2-3 hours to do the procedure and now the colostomy site was reversed and the patient found to have hernia at the colostomy site that was also reduced and the small bowel was lysed from the hernial site and now the distal part of the rectum was identified and the EEA sizer was used. The patient found to have a hard foreign body in the rectum and that was sent for intraop frozen for possible malignancy. Intraop frozen appeared to inconclusive. The patient had a stricture at the foreign body site and that stricture of the rectum was resected after mobilizing the rectum and now the distal part of the colon had diverticulosis that was also resected and now end-to-end rectum to colon anastomosis was done using the EEA. The patient's gallbladder also had a stone and the cholecystectomy was done. After that bilateral On-Q pain catheter pump was placed. The proctosigmoidoscopy was done to identify the stricture initially and the stricture appeared to be in the proximal rectum and after that the 19 lux[place]bourgish Fabrice drain was placed. The colorectal anastomosis was viable, it was without any tension and multiple leak test was done and there were no leaks identified, and both doughnut appeared to be intact and normal. After that, the abdominal wall was closed in multiple layers, the fascia with #1 loop PDS as well as 0 Prolene interrupted sutures, and the colostomy site hernia as well as the defect was closed with #1 Prolene continuous suture in 2 layers, first full thickness as well as superficial fascia as well as the muscle to fix the hernia as well as the defect. All the skin layer was approximated with pepe with packing and dry sterile dressing was applied. The patient tolerated the procedure well. The patient was extubated in the OR. Count of the instruments and gauze was correct. There was no apparent complication. Dieter Gavin MD [facility]
[2018-07-15] MEDS: HYDROmorphone 0.5 mg/0.5 ml ISec IVP PRN ×2 (06:19→09:58)
[2018-07-15] MEDS: Piperacill/Tazo 3.375gm in Dex 3.375 GM/50 ML BAG IVPB SCH ×4 (06:21→22:56)
[2018-07-15 08:13] LABS: BASO % 0.2 % (0.0-2.0); EOS # 0.1 K/uL (0.0-0.7); EOS % 0.4 % (0.0-4.0); HEMOGLOBIN 9.9 g/dL (11.0-16.0); LYMPH # 1.4 K/uL (1.0-4.3); LYMPH % 9.6 % (20.0-40.0); MEAN CELL VOLUME 90.1 fL (81.0-99.0); MEAN CORPUSCULAR HEMOGLOBIN 30.1 pg (27.0-31.0); MEAN CORPUSCULAR HGB CONC 33.4 g/dL (33.0-37.0); MEAN PLATELET VOLUME 9.4 fL (7.2-11.7); MONO # 0.5 K/uL (0.0-0.8); MONO % 3.5 % (0.0-10.0); NEUT # 12.7 K/uL (1.8-7.0); NEUT % 86.3 % (50.0-75.0); NRBC % 0.1 % (0.0-2.0); PLATELET COUNT 220 K/uL (130-400); RBC 3.29 Mil/uL (3.80-5.20); RED CELL DISTRIBUTION WIDTH 12.8 % (11.5-14.5); WHITE BLOOD COUNT 14.8 K/uL (4.8-10.8)
[2018-07-15 08:22] LABS: ALB/GLOB RATIO 1.3 (1.0-2.1); ALBUMIN 3.3 g/dL (3.5-5.0); ALT/SGPT 24 U/L (9-52); AST/SGOT 56 U/L (14-36); BLOOD UREA NITROGEN 7 mg/dL (7-17); CALCIUM 8.6 mg/dl (8.6-10.4); GFR NON-AFRICAN AMERICAN > 60
[2018-07-15 09:44] LABS: ANISOCYTOSIS SLIGHT; BANDS 2 % (0-2); EOSINOPHIL 1 % (0-4); HYPOCHROMIC SLIGHT; LYMPHOCYTE 10 % (20-40); MONOCYTE 2 % (0-10); NEUTROPHIL 85 % (50-75); PLATELET ESTIMATE NORMAL (NORMAL); POIKILOCYTOSIS SLIGHT; TOTAL CELLS COUNTED 100
[2018-07-15] MEDS: Enoxaparin 40 mg Syringe SC SCH (09:59)
[2018-07-15] MEDS: Potassium & Sodium Phosphate PO SCH ×2 (09:59→14:43)
[2018-07-15] MEDS: Lidocaine 5% Patch TD SCH (10:00)
--- NOTE | 2018-07-15 12:00 | CP.PCM.PN ---
<Lou Saba - Last Filed: 07/15/18 16:57> Subjective - Date & Time of Evaluation Date of Evaluation: 07/15/18 Time of Evaluation: 11:58 - Subjective Subjective: General surgery progress note for Dr. Gavin-Lou Saba, PGY-2 Pt seen/examined at bedside Pt reports pain uncontrolled, was just given pain medications. Admits to flatus, some nausea- although not with liquid diet, when given pain medication. Ambulating to void. Denies BM, flatus, F & C. Objective - Vital Signs/Intake and Output Vital Signs (last 24 hours): Temp Pulse Resp BP Pulse Ox 98.6 F 84 20 128/79 98 07/15/18 09:22 07/15/18 09:22 07/15/18 09:22 07/15/18 09:22 07/15/18 09:22 Intake and Output: 07/15/18 07/15/18 06:59 18:59 Output Total 50 Balance -50 - Medications Medications: Current Medications Acetaminophen (Tylenol 325mg Tab) 975 mg PO Q6 [facility] Last Admin: 07/15/18 06:21 Dose: Not Given Cyclobenzaprine HCl (Flexeril) 5 mg PO TID [facility] Last Admin: 07/15/18 09:59 Dose: 5 mg Docusate Sodium (Colace) 100 mg PO BID [facility] Last Admin: 07/15/18 09:58 Dose: 100 mg Enoxaparin Sodium (Lovenox) 40 mg SC DAILY [facility] Last Admin: 07/15/18 09:59 Dose: 40 mg Hydromorphone HCl (Dilaudid) 0.5 mg IVP Q3H PRN PRN Reason: Pain, severe (8-10) Last Admin: 07/15/18 09:58 Dose: 0.5 mg BUPIVACAINE 0.125%/0.9% NACL (Bupivacaine-Ns 0.125% On-Q Bean Sprout Laborer) 600 mls @ 4 mls/hr IJ ONCE ONE Stop: 07/19/18 16:59 Piperacillin Sod/Tazobactam Sod (Zosyn 3.375 Gm Iv Premix) 3.375 gm in 50 mls @ 100 mls/hr IVPB Q6H [facility]; Protocol Last Admin: 07/15/18 10:00 Dose: 100 mls/hr Potassium Chloride/Dextrose/Sod Cl (Potassium Chl 40 Meq In D5-1/2ns) 1,000 mls @ 100 mls/hr IV .Q10H [facility] Last Admin: 07/15/18 04:38 Dose: 100 mls/hr Ketorolac Tromethamine (Toradol) 15 mg IVP Q6 [facility] Lidocaine (Lidoderm) 1 ea TD DAILY [facility] Last Admin: 07/15/18 10:00 Dose: 1 ea Ondansetron HCl (Zofran Inj) 4 mg IVP Q4H PRN PRN Reason: Nausea/Vomiting Oxycodone HCl (Oxycodone Immediate Release Tab) 5 mg PO Q6 PRN PRN Reason: Pain, moderate (4-7) Last Admin: 07/14/18 11:27 Dose: 5 mg Potassium Phos/Sodium Phos (Neutra-Phos) 1 pkt PO Q4H [facility] Stop: 07/15/18 13:01 Last Admin: 07/15/18 09:59 Dose: 1 pkt - Labs Labs: 07/15/18 07:57 07/15/18 07:57 - Constitutional Appears: Non-toxic, No Acute Distress - Head Exam Head Exam: ATRAUMATIC, NORMAL INSPECTION, NORMOCEPHALIC - Eye Exam Eye Exam: EOMI, Normal appearance - ENT Exam ENT Exam: Mucous Membranes Moist, Normal Exam - Neck Exam Neck Exam: Full ROM - Respiratory Exam Respiratory Exam: NORMAL BREATHING PATTERN - Cardiovascular Exam Cardiovascular Exam: REGULAR RHYTHM, +S1, +S2 - GI/Abdominal Exam GI & Abdominal Exam: Soft, Tenderness. absent: Distended, Firm, Guarding, Rigid Additional comments: Midline dressing in place with dried sanguinous strike through in 2 spots at distal aspect, gauze dressing of previous colostomy site with serous strike through- intact, but wet under Tegederm - Extremities Exam Extremities Exam: Normal Inspection - Neurological Exam Neurological Exam: Alert, Awake, CN II-XII Intact, Oriented x3 - Psychiatric Exam Psychiatric exam: Normal Affect, Normal Mood - Skin Skin Exam: Dry, Intact, Normal Color, Warm Assessment and Plan - Assessment and Plan (Free Text) Assessment: 58F s/p laparotomy, extensive LARISSA, colon & rectal resection, w/ primary anastomosis, removal of rectal foreign body, myomectomy, cholecystectomy, POD#2 Plan: Pain control- made Toradol NORA from PRN Continue dilaudid Continue OnQ Continue Tylenol Continue CLD Anti-emetic PRN OOBTC Ambulate Encourage IS use Continue IV Abx Further recs pending attending evaluation Will DW Dr. Romaine Saba, PGY-2 <Dieter Gavin - Last Filed: 07/20/18 19:58> Objective - Vital Signs/Intake and Output Vital Signs (last 24 hours): Temp Pulse Resp BP Pulse Ox 97.4 F L 62 26 H 143/66 99 07/20/18 16:00 07/20/18 19:31 07/20/18 19:31 07/20/18 19:31 07/20/18 19:31 Intake and Output: 07/20/18 07/21/18 18:59 06:59 Intake Total 1090 240 Output Total 600 Balance 490 240 - Medications Medications: Current Medications Albuterol/Ipratropium (Duoneb 3 Mg/0.5 Mg (3 Ml) Ud) 3 ml INH RQ4 [facility] Last Admin: 07/20/18 19:31 Dose: 3 ml Amlodipine Besylate (Norvasc) 5 mg PO DAILY [facility] Last Admin: 07/20/18 09:57 Dose: 5 mg Atovaquone (Mepron) 750 mg PO BID [facility]; Protocol Last Admin: 07/20/18 18:18 Dose: 750 mg Docusate Sodium (Colace) 100 mg PO BID [facility] Last Admin: 07/20/18 18:19 Dose: Not Given Famotidine (Pepcid) 20 mg IVP DAILY [facility] Last Admin: 07/20/18 09:56 Dose: 20 mg Fluoxetine HCl (Prozac) 20 mg PO DAILY [facility] Last Admin: 07/20/18 09:56 Dose: 20 mg Heparin Sodium (Porcine) (Heparin) 5,000 units SC Q12H [facility] Last Admin: 07/20/18 08:08 Dose: 5,000 units Hydromorphone HCl (Dilaudid) 0.5 mg IVP Q8H PRN PRN Reason: Pain, severe (8-10) Last Admin: 07/20/18 14:27 Dose: 0.5 mg BUPIVACAINE 0.125%/0.9% NACL (Bupivacaine-Ns 0.125% On-Q Bean Sprout Laborer) 600 mls @ 7 mls/hr IJ ONCE ONE Stop: 07/21/18 01:42 Last Admin: 07/17/18 22:54 Dose: 7 mls/hr Doxycycline Hyclate 100 mg/ (Sodium Chloride) 100 mls @ 100 mls/hr IVPB Q12H [facility]; Protocol Last Admin: 07/20/18 09:57 Dose: 100 mls/hr Lidocaine (Lidoderm) 1 ea TD DAILY [facility] Last Admin: 07/20/18 09:57 Dose: 1 ea Methylprednisolone (Solu-Medrol) 40 mg IVP Q12 [facility] Last Admin: 07/20/18 09:56 Dose: 40 mg Metoprolol Tartrate (Lopressor) 50 mg PO BID [facility] Last Admin: 07/20/18 18:18 Dose: Not Given Potassium Chloride (K-Dur 20 Meq Er Tab) 40 meq PO BRK [facility] Last Admin: 07/20/18 08:08 Dose: 40 meq - Labs Labs: 07/20/18 06:09 07/20/18 06:07 Attending/Attestation - Attestation I have personally seen and examined this patient.: Yes I have fully participated in the care of the patient.: Yes I have reviewed all pertinent clinical information, including history, physical exam and plan: Yes Notes (Text): Pt was seen and examined at bedside Agree with above note and assessment Pt has better pain control WBC is trending up Start IV antibiotics c.w current mx NG tube insertion if vomits Plan d.w pt in detail
[2018-07-15] MEDS ORDERED: HYDROmorphone 0.5 mg/0.5 ml ISec IVP PRN (12:35)
[2018-07-15] MEDS ORDERED: Potassium Chl 40 mEq in D5-1/2 1,000 ML IV SCH ×2 (13:00→19:17)
[2018-07-15] MEDS ORDERED: BUPIVACAINE 0.125%/0.9% NACL 600 ML IJ ONE (15:00)
[2018-07-15] MEDS ORDERED: Albuterol-Ipratrop 3 mg / 0.5 (3 ml) UD INH PRN (16:55)
[2018-07-15] MEDS ORDERED: Albuterol-Ipratrop 3 mg / 0.5 (3 ml) UD INH STA (17:04)
--- NOTE | 2018-07-15 18:58 | RAD ---
HISTORY: NGT placement COMPARISON: Chest x-ray performed 07/01/18 TECHNIQUE: Chest, one view. FINDINGS: Nasogastric tube extends expected location of the stomach. LUNGS: Patchy bilateral mid lung zone opacities may reflect infection or edema. PLEURA: No significant pleural effusion identified. No definite pneumothorax . CARDIOVASCULAR: Cardiomegaly. Dense atherosclerotic calcifications of an ectatic prominent aorta. OSSEOUS STRUCTURES: No acute osseous abnormality identified. VISUALIZED UPPER ABDOMEN: Right upper quadrant surgical clips. Midline surgical pepe. OTHER FINDINGS: None. IMPRESSION: Nasogastric tube extends expected location of the stomach. Cardiomegaly. Moderate edema and/or infection.
[2018-07-15] MEDS: Albuterol-Ipratrop 3 mg / 0.5 (3 ml) UD INH SCH ×2 (19:42→23:49)
--- NOTE | 2018-07-15 20:53 | CP.PCM.PN ---
Subjective - Date & Time of Evaluation Date of Evaluation: 07/15/18 - Subjective Subjective: patient examined today no nausea, no vomiting, no diarrhea, no dizziness, no fever, no shortness of breath Objective - Vital Signs/Intake and Output Vital Signs (last 24 hours): Temp Pulse Resp BP Pulse Ox 98.9 F 92 H 20 163/89 H 84 L 07/15/18 15:00 07/15/18 15:00 07/15/18 15:00 07/15/18 19:40 07/15/18 15:00 - Medications Medications: Current Medications Albuterol/Ipratropium (Duoneb 3 Mg/0.5 Mg (3 Ml) Ud) 3 ml INH RQ4 [facility] Last Admin: 07/15/18 19:42 Dose: 3 ml Docusate Sodium (Colace) 100 mg PO BID [facility] Last Admin: 07/15/18 18:00 Dose: Not Given Enoxaparin Sodium (Lovenox) 40 mg SC DAILY [facility] Last Admin: 07/15/18 09:59 Dose: 40 mg Piperacillin Sod/Tazobactam Sod (Zosyn 3.375 Gm Iv Premix) 3.375 gm in 50 mls @ 100 mls/hr IVPB Q6H [facility]; Protocol Last Admin: 07/15/18 18:13 Dose: 100 mls/hr BUPIVACAINE 0.125%/0.9% NACL (Bupivacaine-Ns 0.125% On-Q Mail Truck Driver) 600 mls @ 4 mls/hr IJ ONCE ONE Stop: 07/21/18 20:59 Last Admin: 07/15/18 14:47 Dose: 4 mls/hr Vancomycin/Sodium Chloride (Vancomycin 1 Gm/Ns 200 Ml) 1 gm in 200 mls @ 133 mls/hr IVPB Q12H [facility]; Protocol Stop: 07/20/18 20:01 Potassium Chloride/Dextrose/Sod Cl (Potassium Chl 40 Meq In D5-1/2ns) 1,000 mls @ 50 mls/hr IV .Q20H [facility] Last Admin: 07/15/18 19:39 Dose: 50 mls/hr Ketorolac Tromethamine (Toradol) 30 mg IVP Q6 [facility] Stop: 07/17/18 12:01 Last Admin: 07/15/18 18:13 Dose: 30 mg Lidocaine (Lidoderm) 1 ea TD DAILY [facility] Last Admin: 07/15/18 10:00 Dose: 1 ea Morphine Sulfate (Morphine) 2 mg IVP Q4H PRN PRN Reason: Pain, severe (8-10) Last Admin: 07/15/18 14:42 Dose: 2 mg Ondansetron HCl (Zofran Inj) 4 mg IVP Q4H PRN PRN Reason: Nausea/Vomiting - Labs Labs: 07/15/18 07:57 07/15/18 07:57 - Constitutional Appears: Well - Head Exam Head Exam: ATRAUMATIC, NORMAL INSPECTION, NORMOCEPHALIC - Eye Exam Eye Exam: EOMI, Normal appearance, PERRL Pupil Exam: NORMAL ACCOMODATION, PERRL - ENT Exam ENT Exam: Mucous Membranes Moist, Normal Exam - Neck Exam Neck Exam: Full ROM, Normal Inspection. absent: Lymphadenopathy - Respiratory Exam Respiratory Exam: Decreased Breath Sounds - Cardiovascular Exam Cardiovascular Exam: REGULAR RHYTHM, +S1, +S2 - GI/Abdominal Exam GI & Abdominal Exam: Soft, Diminished Bowel Sounds - Rectal Exam Rectal Exam: Deferred - Neurological Exam Neurological Exam: Oriented x3 Assessment and Plan - Assessment and Plan (Free Text) Plan: plan discussed with patient moderate complexity of care bupivacane-ns colace duoneb lidoderm lovenox morphine potassium chl toradol vancomycin zofran inj zosyn medications reviewed vitals reviewed labs reviewed
[2018-07-15] MEDS: Vancomycin 1 gm/NS 200 ml 1 GM/200 ML BAG IVPB SCH (21:54)
[2018-07-15] MEDS ORDERED: oxyCODONE 10 mg ER Tab (oxyCONTIN) PO SCH (22:00)
[2018-07-16] MEDS: Albuterol-Ipratrop 3 mg / 0.5 (3 ml) UD INH SCH ×5 (03:23→20:05)
[2018-07-16] MEDS: Piperacill/Tazo 3.375gm in Dex 3.375 GM/50 ML BAG IVPB SCH ×4 (05:13→23:45)
[2018-07-16 07:38] LABS: BASO % 0.1 % (0.0-2.0); LYMPH # 1.3 K/uL (1.0-4.3)
[2018-07-16 07:44] LABS: HEMOGLOBIN 10.9 g/dL (11.0-16.0); LYMPH % 7.1 % (20.0-40.0); MEAN CELL VOLUME 88.3 fL (81.0-99.0); MEAN CORPUSCULAR HEMOGLOBIN 30.3 pg (27.0-31.0); MEAN CORPUSCULAR HGB CONC 34.3 g/dL (33.0-37.0); MEAN PLATELET VOLUME 9.5 fL (7.2-11.7); MONO # 0.6 K/uL (0.0-0.8); MONO % 3.1 % (0.0-10.0); NEUT # 16.4 K/uL (1.8-7.0); NEUT % 89.7 % (50.0-75.0); PLATELET COUNT 268 K/uL (130-400); RED CELL DISTRIBUTION WIDTH 13.1 % (11.5-14.5); WHITE BLOOD COUNT 18.3 K/uL (4.8-10.8)
--- NOTE | 2018-07-16 08:04 | CP.PCM.PN ---
<Lou Saba - Last Filed: 07/16/18 08:09> Subjective - Date & Time of Evaluation Date of Evaluation: 07/16/18 Time of Evaluation: 07:53 - Subjective Subjective: General surgery progress note for Dr. Gavin-Lou Saba, PGY-2 Pt seen/examined at bedside Pt reports uncontrolled pain overnight, now including back pain. Continues to have problems breathing - pt reports having similar problems last time she had an NGT in. Reports some nausea, chest pain. Pt has flatus, denies BM. Voiding. NGT with 400cc dark gastric contents out since placement. BLAIR with 35cc serous output/24 hrs. Objective - Vital Signs/Intake and Output Vital Signs (last 24 hours): Temp Pulse Resp BP Pulse Ox 97.7 F 109 H 20 152/90 H 94 L 07/15/18 23:15 07/15/18 23:15 07/15/18 23:15 07/15/18 23:15 07/15/18 23:15 Intake and Output: 07/16/18 07/16/18 06:59 18:59 Intake Total 800 Output Total 335 Balance 465 - Medications Medications: Current Medications Albuterol/Ipratropium (Duoneb 3 Mg/0.5 Mg (3 Ml) Ud) 3 ml INH RQ4 [facility] Last Admin: 07/16/18 03:23 Dose: Not Given Docusate Sodium (Colace) 100 mg PO BID [facility] Last Admin: 07/15/18 18:00 Dose: Not Given Enoxaparin Sodium (Lovenox) 40 mg SC DAILY [facility] Last Admin: 07/15/18 09:59 Dose: 40 mg Hydromorphone HCl (Dilaudid) 0.25 mg IVP Q3H PRN PRN Reason: Pain, severe (8-10) Piperacillin Sod/Tazobactam Sod (Zosyn 3.375 Gm Iv Premix) 3.375 gm in 50 mls @ 100 mls/hr IVPB Q6H [facility]; Protocol Last Admin: 07/16/18 05:13 Dose: 100 mls/hr BUPIVACAINE 0.125%/0.9% NACL (Bupivacaine-Ns 0.125% On-Q Senior Quality Assurance Engineer) 600 mls @ 4 mls/hr IJ ONCE ONE Stop: 07/21/18 20:59 Last Admin: 07/15/18 14:47 Dose: 4 mls/hr Vancomycin/Sodium Chloride (Vancomycin 1 Gm/Ns 200 Ml) 1 gm in 200 mls @ 133 mls/hr IVPB Q12H [facility]; Protocol Stop: 07/20/18 20:01 Last Admin: 07/15/18 21:54 Dose: 133 mls/hr Potassium Chloride/Dextrose/Sod Cl (Potassium Chl 40 Meq In D5-1/2ns) 1,000 mls @ 50 mls/hr IV .Q20H [facility] Last Admin: 07/15/18 19:39 Dose: 50 mls/hr Ketorolac Tromethamine (Toradol) 30 mg IVP Q6 [facility] Stop: 07/17/18 12:01 Last Admin: 07/16/18 00:29 Dose: 30 mg Lidocaine (Lidoderm) 1 ea TD DAILY [facility] Last Admin: 07/15/18 10:00 Dose: 1 ea Ondansetron HCl (Zofran Inj) 4 mg IVP Q4H PRN PRN Reason: Nausea/Vomiting - Labs Labs: 07/16/18 07:09 07/15/18 07:57 - Constitutional Appears: Non-toxic, No Acute Distress - Head Exam Head Exam: ATRAUMATIC, NORMAL INSPECTION, NORMOCEPHALIC - Eye Exam Eye Exam: EOMI, Normal appearance - ENT Exam ENT Exam: Mucous Membranes Moist Additional comments: NGT in Left nares - Respiratory Exam Respiratory Exam: NORMAL BREATHING PATTERN Additional comments: on venti mask - Cardiovascular Exam Cardiovascular Exam: REGULAR RHYTHM, +S1, +S2 - GI/Abdominal Exam GI & Abdominal Exam: Soft, Tenderness (along midline incision- dressing in place with sanguinous strike through, colostomy site dressing with serous strike though unde tegederm dressing. BLAIR with scant serous output. ). absent: Distended, Firm, Guarding - Extremities Exam Extremities Exam: Normal Inspection - Neurological Exam Neurological Exam: Alert, Awake, CN II-XII Intact, Oriented x3 - Psychiatric Exam Psychiatric exam: Normal Affect, Normal Mood - Skin Skin Exam: Dry, Intact, Normal Color, Warm Assessment and Plan - Assessment and Plan (Free Text) Assessment: 58F s/p laparotomy, extensive LARISSA, colon & rectal resection, w/ primary anastomosis, removal of rectal foreign body, myomectomy, cholecystectomy, POD#3 Plan: NGT to suction, ok to hold x 1 hr while giving PO meds O2 PRN Pain control Anti-emetic prn Intake/output OOBTC PT Encourage IS use Monitor bowel function Will DW Dr. Romaine Saba, PGY-2 <Dieter Gavin - Last Filed: 07/20/18 19:59> Objective - Vital Signs/Intake and Output Vital Signs (last 24 hours): Temp Pulse Resp BP Pulse Ox 97.4 F L 62 26 H 143/66 99 07/20/18 16:00 07/20/18 19:31 07/20/18 19:31 07/20/18 19:31 07/20/18 19:31 Intake and Output: 07/20/18 07/21/18 18:59 06:59 Intake Total 1090 240 Output Total 600 Balance 490 240 - Medications Medications: Current Medications Albuterol/Ipratropium (Duoneb 3 Mg/0.5 Mg (3 Ml) Ud) 3 ml INH RQ4 [facility] Last Admin: 07/20/18 19:31 Dose: 3 ml Amlodipine Besylate (Norvasc) 5 mg PO DAILY [facility] Last Admin: 07/20/18 09:57 Dose: 5 mg Atovaquone (Mepron) 750 mg PO BID [facility]; Protocol Last Admin: 07/20/18 18:18 Dose: 750 mg Docusate Sodium (Colace) 100 mg PO BID [facility] Last Admin: 07/20/18 18:19 Dose: Not Given Famotidine (Pepcid) 20 mg IVP DAILY [facility] Last Admin: 07/20/18 09:56 Dose: 20 mg Fluoxetine HCl (Prozac) 20 mg PO DAILY [facility] Last Admin: 07/20/18 09:56 Dose: 20 mg Heparin Sodium (Porcine) (Heparin) 5,000 units SC Q12H [facility] Last Admin: 07/20/18 08:08 Dose: 5,000 units Hydromorphone HCl (Dilaudid) 0.5 mg IVP Q8H PRN PRN Reason: Pain, severe (8-10) Last Admin: 07/20/18 14:27 Dose: 0.5 mg BUPIVACAINE 0.125%/0.9% NACL (Bupivacaine-Ns 0.125% On-Q Senior Quality Assurance Engineer) 600 mls @ 7 mls/hr IJ ONCE ONE Stop: 07/21/18 01:42 Last Admin: 07/17/18 22:54 Dose: 7 mls/hr Doxycycline Hyclate 100 mg/ (Sodium Chloride) 100 mls @ 100 mls/hr IVPB Q12H [facility]; Protocol Last Admin: 07/20/18 09:57 Dose: 100 mls/hr Lidocaine (Lidoderm) 1 ea TD DAILY [facility] Last Admin: 07/20/18 09:57 Dose: 1 ea Methylprednisolone (Solu-Medrol) 40 mg IVP Q12 [facility] Last Admin: 07/20/18 09:56 Dose: 40 mg Metoprolol Tartrate (Lopressor) 50 mg PO BID [facility] Last Admin: 07/20/18 18:18 Dose: Not Given Potassium Chloride (K-Dur 20 Meq Er Tab) 40 meq PO BRK [facility] Last Admin: 07/20/18 08:08 Dose: 40 meq - Labs Labs: 07/20/18 06:09 07/20/18 06:07 Attending/Attestation - Attestation I have personally seen and examined this patient.: Yes I have fully participated in the care of the patient.: Yes I have reviewed all pertinent clinical information, including history, physical exam and plan: Yes Notes (Text): Pt was seen and examined at bedside Agree with above note and assessment Pt has SOB Pulmonary consult Supplement O2 IV antibiotics NG to LIS, NPO, IVF Plan d.w pt in detail
[2018-07-16 08:08] LABS: ALB/GLOB RATIO 1.1 (1.0-2.1); ALBUMIN 3.8 g/dL (3.5-5.0); ALT/SGPT 33 U/L (9-52); AST/SGOT 68 U/L (14-36); BLOOD UREA NITROGEN 7 mg/dL (7-17); CALCIUM 8.6 mg/dl (8.6-10.4); GFR NON-AFRICAN AMERICAN > 60
[2018-07-16 08:28] LABS: ANISOCYTOSIS SLIGHT; BANDS 1 % (0-2); HYPOCHROMIC SLIGHT; LYMPHOCYTE 6 % (20-40); MONOCYTE 5 % (0-10); NEUTROPHIL 88 % (50-75); PLATELET ESTIMATE NORMAL (NORMAL); POIKILOCYTOSIS SLIGHT; TOTAL CELLS COUNTED 100
[2018-07-16] MEDS: Enoxaparin 40 mg Syringe SC SCH (09:32)
[2018-07-16] MEDS: Lidocaine 5% Patch TD SCH (09:32)
[2018-07-16] MEDS ORDERED: Potassium Chloride 20 mEq/15 ml LIQ UD PO ONE ×2 (10:00→12:10)
[2018-07-16] MEDS: HYDROmorphone 0.5 mg/0.5 ml ISec IVP PRN ×3 (11:03→22:57)
[2018-07-16] MEDS: Potassium Chl 40 mEq in D5-1/2 1,000 ML IV SCH ×2 (12:36→18:18)
[2018-07-16 13:15] LABS: ABG ALLEN TEST POS; ARTERIAL BLOOD GAS O2 SAT 99.9 % (95-98); ARTERIAL BLOOD GAS PCO2 30 mm/Hg (35-45); ARTERIAL BLOOD GAS PH 7.56 (7.35-7.45); ARTERIAL BLOOD GAS PO2 177 mm/Hg (80-100); ARTERIAL BLOOD GAS TCO2 27.8 mmol/L (22-28)
[2018-07-16] MEDS ORDERED: MethylPREDNISolone 40 mg Vial IVP ONE (13:30)
[2018-07-16] MEDS ORDERED: Albuterol-Ipratrop 3 mg / 0.5 (3 ml) UD INH ONE (13:30)
--- NOTE | 2018-07-16 13:43 | PCM.RRT ---
<Jayleen Silva L - Last Filed: 07/16/18 13:40> RUG DESIGNER Nurses Assessment - Situation Date: 07/16/18 Time RUG DESIGNER was called: 13:02 RUG DESIGNER Location:: Med/Surg Room Number: 665-A RUG DESIGNER Reason for Call: O2 Saturation below 90% - Respiratory RUG DESIGNER Delivery Method: Non Rebreather @% Was the Patient Intubated?: No - Diagnostic Test Ordered Chest X-Ray: Yes CPR started during RUG DESIGNER?: No - Hyacinth Coma Scale Coma Scale Eye Opening: Spontaneous Coma Scale Motor: Obeys Commands Movement Coma Scale Verbal: Oriented Coma Scale Total: 15 - Recommendations 5) RUG DESIGNER Level of Care Recommendations: Transfer to ICU - Neurological Status (Select all that apply): Alert, Responsive, Oriented, Verbal, Follows Commands - Respiratory Oxygen Delivery Method: Non Rebreather @% - Constitutional Appears: Non-toxic, No Acute Distress - Head Head Exam: ATRAUMATIC, NORMOCEPHALIC - Eyes Eye Exam: EOMI, Normal appearance, PERRL - Respiratory Exam Respiratory Exam: Decreased Breath Sounds. absent: Accessory Muscle Use, Respiratory Distress - Cardiovascular Exam Cardiovascular Exam: REGULAR RHYTHM, +S1, +S2 - GI/Abdominal Exam GI & Abdominal Exam: Soft - Neurological Exam Neurological Exam: Alert, Awake, Oriented x3 Plan - Assessment of Findings&Treatment Plan Rapid response called at 1:04 PM for hypoxia Patient was saturating at 83% Surgical residents were at bedside NG tube was removed, oxygen saturation increased to 90s ICU consulted, stat CXR, ABG, BIPAP, vega insertion ordered Lasix 40 mg IVP, solu-medrol 40 mg IVP, Duonebs administered Patient to be transferred to be ICU Jayleen Silva PGY-1 <Alice Pisano V - Last Filed: 07/17/18 16:58> RUG DESIGNER Nurses Assessment - Vital Signs Vital Signs: Rapid Response Vital Sign Blood Pressure 162/111 Pulse Rate 84 Respiratory Rate 24 Oxygen Saturation 85 Attending/Attestation - Attestation I have personally seen and examined this patient.: Yes I have fully participated in the care of the patient.: Yes I have reviewed all pertinent clinical information, including history, physical exam and plan: Yes Notes (Text): Rapid response called for tachycardia and associated shortness of breath. This is a 58-year-old female who underwent ex lap on July 13 with additional procedures including colostomy reversal dissection of the descending colon myomectomy etc. Per operative report who was called for rapid response for tachycardia and noted hypoxia. Patient on exam is tachycardic however there is no increased work of breathing. Prior to my arrival surgery team is on-site surgery r d intern to remove the NG tube that was originally placed.. Patient is a 58-year-old female who appears to noncompliant on high blood pressure medications, reports a smoking history noted that she is been having some cough and more pain. Patient admits that she has not been using the incentive spirometry as frequently as she should. Discussed with surgical residents yesterday his chest x-ray appears that she is fluid overloaded did give a dose of Lasix patient has been on maintenance fluids since yesterday morning up until today. Per surgery team there is no reported heart history of heart failure to their knowledge. Patient given a DuoNeb treatment, Solu-Medrol to reduce inflammation given the increased work of breathing noted given that she is quite tachypneic but they 2426. Patient noted to be needing a nonrebreather to help oxygenation however improved to about 90-93 which is unusual. Chest x-ray repeated today also noted for fluid overload. Consulted ICU given the work increased work of breathing. ICU team to evaluate the patient will transition patient to ICU for BiPAP and diuresis. Possible patient has underlying heart failure given her hypertension history and COPD given that she admits that she does smoke occasionally. Vega placed at bedside and given additional dose of Lasix to hopefully will remove some fluid. Note patient is awake alert during this time asking for pain medication however given that given her work of breathing we advised her need to make sure her lungs are are better and also requesting to get her sleep medicine tonight and I also did advise her that we need to improve her respiratory status prior to giving her sleeping meds and pain medication. Critical care time: 32 minutes.
--- NOTE | 2018-07-16 14:08 | RAD ---
HISTORY: sob COMPARISON: Chest x-ray performed 07/15/18 TECHNIQUE: Chest, one view. FINDINGS: Examination limited by habitus. LUNGS: Moderate to severe interstitial prominence may represent infection or edema. PLEURA: No significant pleural effusion identified. No definite pneumothorax . CARDIOVASCULAR: Cardiomegaly. Dense atherosclerotic calcifications of an ectatic aorta. OSSEOUS STRUCTURES: Osseous demineralization. Degenerative changes. VISUALIZED UPPER ABDOMEN: Right upper quadrant surgical clips. OTHER FINDINGS: None. IMPRESSION: Moderate to severe interstitial prominence may represent infection or edema. Cardiomegaly. Dense atherosclerotic calcifications of an ectatic aorta. Right upper quadrant surgical clips.
--- NOTE | 2018-07-16 14:35 | CP.PCM.CON ---
<Fausto Chase - Last Filed: 07/16/18 15:35> History of Present Illness - History of Present Illness History of Present Illness: Fausto Chase PGY1 Progress Note for Dr. Diaz Patient is a 58yo F with PMH HTN, colostomy, depression who presented to ED for colostomy reversal. ICU consulted for COMMISSIONED SECURITY OFFICER due to hypoxia. Patient reports feeling short of breath intermittently over the past 3 days after NGT insertion. She reports feeling worsening of the shortness of breath today, for which the COMMISSIONED SECURITY OFFICER was called. She reports resolution of the symptoms, claiming she no longer feels short of breath. She denies any history of shortness of breath at home, heart problems, or swelling. She denies fever, chills, chest pain, dizziness, nausea, vomiting, diarrhea. SxH: cranial hematoma 2016, left forearm, colectomy with colostomy 06/2017 SocH: light smoker. denies etoh or recreational drugs FamH: father HTN Allergies: NKDA Meds: norvasc, toprol XL, prozac Review of Systems - Review of Systems Review of Systems: 12 point ROS performed and negative other than what is stated in HPI Past Patient History - Past Medical History & Family History Past Medical History?: Yes - Past Social History Smoking Status: Light Smoker < 10 Cigarettes Daily - CARDIAC Hx Hypertension: Yes - PULMONARY Hx Respiratory Disorders: No Hx Asthma: No Hx Bronchitis: No Hx Chronic Obstructive Pulmonary Disease (COPD): No Hx Emphysema: No Hx Sleep Apnea: No - NEUROLOGICAL Hx Neurological Disorder: No Hx Alzheimer's Disease: No HX Cerebrovascular Accident: No Hx Dizziness: Yes (hx subdural hematoma 1 year ago) Hx Seizures: No Hx Transient Ischemic Attacks (TIA): No - HEENT Hx HEENT Problems: No - RENAL Hx Chronic Kidney Disease: No - ENDOCRINE/METABOLIC Hx Endocrine Disorders: No Other/Comment: hypokalemia - HEMATOLOGICAL/ONCOLOGICAL Hx Blood Disorders: No Hx Anemia: Yes Hx Blood Transfusions: Yes Hx Blood Transfusion Reaction: No Hx Cancer: No Hx Chemotherapy: No - INTEGUMENTARY Hx Dermatological Problems: No - MUSCULOSKELETAL/RHEUMATOLOGICAL Hx Musculoskeletal Disorders: No Hx Arthritis: No Hx Back Pain: No Hx Falls: Yes (2017; NEEDED SURGERY FOR CRANIAL HEMATOMA) Hx Fractures: No Hx Herniated Disk: No - GASTROINTESTINAL Hx Gastrointestinal Disorders: Yes Hx Bowel Surgery: Yes (COLON RESECTION WITH COLOSTOMY) Hx Colostomy: Yes Hx Diverticulitis: Yes (2017) Hx Gastroesophageal Reflux: Yes - GENITOURINARY/GYNECOLOGICAL Hx Genitourinary Disorders: No - PSYCHIATRIC Hx Psychophysiologic Disorder: Yes Hx Depression: Yes Hx Substance Use: No - SURGICAL HISTORY Hx Surgeries: Yes Hx Section: Yes Hx Tonsillectomy: Yes Other/Comment: Lt forearm. brain surgery. Colon surgery 06/2017, with colosotmy - ANESTHESIA Hx Anesthesia: Yes Hx Anesthesia Reactions: No Hx Malignant Hyperthermia: No Has any member of the family had a problem w/ anesthesia?: No Meds Allergies/Adverse Reactions: Allergies Allergy/AdvReac Type Severity Reaction Status Date / Time No Known Allergies Allergy Verified 05/19/18 07:00 - Medications Medications: Current Medications Albuterol/Ipratropium (Duoneb 3 Mg/0.5 Mg (3 Ml) Ud) 3 ml INH RQ4 [facility] Last Admin: 07/16/18 11:03 Dose: 3 ml Amlodipine Besylate (Norvasc) 5 mg PO DAILY [facility] Last Admin: 07/16/18 09:31 Dose: 5 mg Docusate Sodium (Colace) 100 mg PO BID [facility] Last Admin: 07/16/18 09:32 Dose: 100 mg Enoxaparin Sodium (Lovenox) 40 mg SC DAILY [facility] Last Admin: 07/16/18 09:32 Dose: 40 mg Hydromorphone HCl (Dilaudid) 0.25 mg IVP Q3H PRN PRN Reason: Pain, severe (8-10) Last Admin: 07/16/18 12:37 Dose: 0.25 mg Piperacillin Sod/Tazobactam Sod (Zosyn 3.375 Gm Iv Premix) 3.375 gm in 50 mls @ 100 mls/hr IVPB Q6H [facility]; Protocol Last Admin: 07/16/18 05:13 Dose: 100 mls/hr BUPIVACAINE 0.125%/0.9% NACL (Bupivacaine-Ns 0.125% On-Q Assistant Women'S Tennis Coach) 600 mls @ 4 mls/hr IJ ONCE ONE Stop: 07/21/18 20:59 Last Admin: 07/15/18 14:47 Dose: 4 mls/hr Vancomycin/Sodium Chloride (Vancomycin 1 Gm/Ns 200 Ml) 1 gm in 200 mls @ 133 mls/hr IVPB Q12H [facility]; Protocol Stop: 07/20/18 20:01 Last Admin: 07/15/18 21:54 Dose: 133 mls/hr Potassium Chloride/Dextrose/Sod Cl (Potassium Chl 40 Meq In D5-1/2ns) 1,000 mls @ 100 mls/hr IV .Q10H [facility] Last Admin: 07/16/18 12:36 Dose: 100 mls/hr Ketorolac Tromethamine (Toradol) 30 mg IVP Q6 [facility] Stop: 07/17/18 12:01 Last Admin: 07/16/18 14:33 Dose: Not Given Lidocaine (Lidoderm) 1 ea TD DAILY [facility] Last Admin: 07/16/18 09:32 Dose: 1 ea Meclizine HCl (Antivert) 12.5 mg PO Q6H [facility] Last Admin: 07/16/18 09:52 Dose: 12.5 mg Metoprolol Tartrate (Lopressor) 50 mg PO BID [facility] Last Admin: 07/16/18 09:31 Dose: 50 mg Physical Exam - Constitutional Appears: Well, No Acute Distress - Head Exam Head Exam: ATRAUMATIC, NORMOCEPHALIC - Eye Exam Eye Exam: EOMI, Normal appearance, PERRL Pupil Exam: NORMAL ACCOMODATION - ENT Exam ENT Exam: Mucous Membranes Dry - Respiratory Exam Respiratory Exam: Decreased Breath Sounds. absent: Accessory Muscle Use, Chest Wall Tenderness, Rales, Rhonchi, Wheezes, Respiratory Distress - Cardiovascular Exam Cardiovascular Exam: REGULAR RHYTHM, +S1, +S2. absent: Gallop, Rubs - GI/Abdominal Exam GI & Abdominal Exam: Normal Bowel Sounds, Soft, Tenderness. absent: Distended Additional comments: surgical site clean/dry/intact - Extremities Exam Extremities exam: Positive for: normal inspection. Negative for: pedal edema - Back Exam Back exam: NORMAL INSPECTION - Neurological Exam Neurological exam: Alert, CN II-XII Intact, Oriented x3, Reflexes Normal - Psychiatric Exam Psychiatric exam: Normal Affect, Normal Mood - Skin Skin Exam: Dry, Intact, Normal Color Results - Vital Signs Recent Vital Signs: Last Vital Signs Temp 97.4 F L 07/16/18 14:27 Pulse 75 07/16/18 14:30 Resp 34 H 07/16/18 14:30 BP 152/96 H 07/16/18 08:34 Pulse Ox 96 07/16/18 14:30 - Labs Result Diagrams: 07/16/18 07:09 07/16/18 07:09 Labs: Laboratory Results - last 24 hr 07/16/18 07/16/18 07/16/18 07:09 07:09 09:54 WBC 18.3 H RBC 3.60 L Hgb 10.9 L Hct 31.8 L MCV 88.3 MCH 30.3 MCHC 34.3 RDW 13.1 Plt Count 268 MPV 9.5 Neut % (Auto) 89.7 H Lymph % (Auto) 7.1 L [place] % (Auto) 3.1 Eos % (Auto) 0.0 Baso % (Auto) 0.1 Neut # (Auto) 16.4 H Lymph # (Auto) 1.3 [place] # (Auto) 0.6 Eos # (Auto) 0.0 Baso # (Auto) 0.0 Neutrophils % (Manual) 88 H Band Neutrophils % 1 Lymphocytes % (Manual) 6 L Monocytes % (Manual) 5 Platelet Estimate Normal Hypochromasia (manual) Slight Poikilocytosis (manual Slight Anisocytosis (manual) Slight Puncture Site pCO2 pO2 HCO3 ABG pH ABG Total CO2 ABG O2 Saturation ABG Base Excess Ramon Test ABG Potassium A-a O2 Difference Respiratory Index Glucose Lactate Liter Flow FiO2 Sodium 135 Potassium 3.5 L Chloride 92 L Carbon Dioxide 33 H Anion Gap 14 BUN 7 Creatinine 0.7 Est GFR ( Amer) > 60 Est GFR (Non-Af Amer) > 60 Random Glucose 153 H D Calcium 8.6 Total Bilirubin 1.3 AST 68 H D ALT 33 Alkaline Phosphatase 95 Troponin I < 0.0120 < 0.0120 Total Protein 7.2 Albumin 3.8 Globulin 3.4 Albumin/Globulin Ratio 1.1 Arterial Blood Potassium 07/16/18 13:00 WBC RBC Hgb Hct MCV MCH MCHC RDW Plt Count MPV Neut % (Auto) Lymph % (Auto) [place] % (Auto) Eos % (Auto) Baso % (Auto) Neut # (Auto) Lymph # (Auto) [place] # (Auto) Eos # (Auto) Baso # (Auto) Neutrophils % (Manual) Band Neutrophils % Lymphocytes % (Manual) Monocytes % (Manual) Platelet Estimate Hypochromasia (manual) Poikilocytosis (manual Anisocytosis (manual) Puncture Site Rra pCO2 30 L pO2 177 H HCO3 29.0 H ABG pH 7.56 H ABG Total CO2 27.8 ABG O2 Saturation 99.9 H ABG Base Excess 5.2 H Ramon Test Pos ABG Potassium 3.7 A-a O2 Difference 499.0 Respiratory Index 2.8 Glucose 115 H Lactate 1.1 Liter Flow 15.0 FiO2 100.0 Sodium 139.0 Potassium Chloride 105.0 Carbon Dioxide Anion Gap BUN Creatinine Est GFR ( Amer) Est GFR (Non-Af Amer) Random Glucose Calcium Total Bilirubin AST ALT Alkaline Phosphatase Troponin I Total Protein Albumin Globulin Albumin/Globulin Ratio Arterial Blood Potassium 3.7 Assessment & Plan - Assessment and Plan (Free Text) Assessment: Patient is a 58yo F with PMH HTN, colostomy, depression who presented to ED for colostomy reversal. S/p Laparotomy, extensive lysis of adhesions, colon resection, rectal resection, primary anastomosis of colon and rectum, rectal foreign body removal, myomectomy, cholecystectomy, and OnQ placement POD #3. ICU consulted for COMMISSIONED SECURITY OFFICER due to hypoxia. Patient on Bipap. Fluid overloaded on CXR, will continue diuresis. Plan: Neuro: - AAOx3 - GSC 15 Cardiovascular: - h/o HTN - norvasc, metoprolol tartate - maintain normotension - lasix 40 IV q12h - r/o diastolic HF - f/u ECHO results Pulm: - on Bipap 11/28/60 - tachypneic - maintain SpO2> 92% - CXR: moderate to severe interstitial prominence representing edema. cardiomegaly GI: - s/p Laparotomy, extensive lysis of adhesions, colon resection, rectal resection, primary anastomosis of colon and rectum, rectal foreign body removal, myomectomy, cholecystectomy, and OnQ placement POD #3 - continue wound care as per surgical team - colace - montior bowel function Renal: - hold IVF - continue diuresis Heme: - H/H stable - no active issues ID: - leukocytosis, likely reactive - Vanco IV NPO Patient seen and case discussed with Dr. Diaz <Demarcus Diaz - Last Filed: 07/16/18 16:47> Meds - Medications Medications: Current Medications Albuterol/Ipratropium (Duoneb 3 Mg/0.5 Mg (3 Ml) Ud) 3 ml INH RQ4 [facility] Last Admin: 07/16/18 15:55 Dose: 3 ml Amlodipine Besylate (Norvasc) 5 mg PO DAILY [facility] Last Admin: 07/16/18 09:31 Dose: 5 mg Docusate Sodium (Colace) 100 mg PO BID [facility] Last Admin: 07/16/18 09:32 Dose: 100 mg Enoxaparin Sodium (Lovenox) 40 mg SC DAILY [facility] Last Admin: 07/16/18 09:32 Dose: 40 mg Furosemide (Lasix) 40 mg IVP Q12H [facility] Hydromorphone HCl (Dilaudid) 0.25 mg IVP Q3H PRN PRN Reason: Pain, severe (8-10) Last Admin: 07/16/18 12:37 Dose: 0.25 mg Piperacillin Sod/Tazobactam Sod (Zosyn 3.375 Gm Iv Premix) 3.375 gm in 50 mls @ 100 mls/hr IVPB Q6H [facility]; Protocol Last Admin: 07/16/18 14:38 Dose: Not Given BUPIVACAINE 0.125%/0.9% NACL (Bupivacaine-Ns 0.125% On-Q Assistant Women'S Tennis Coach) 600 mls @ 4 mls/ hr IJ ONCE ONE Stop: 07/21/18 20:59 Last Admin: 07/15/18 14:47 Dose: 4 mls/hr Vancomycin/Sodium Chloride (Vancomycin 1 Gm/Ns 200 Ml) 1 gm in 200 mls @ 133 mls/hr IVPB Q12H [facility]; Protocol Stop: 07/20/18 20:01 Last Admin: 07/16/18 14:37 Dose: Not Given Potassium Chloride/Dextrose/Sod Cl (Potassium Chl 40 Meq In D5-1/2ns) 1,000 mls @ 100 mls/hr IV .Q10H [facility] Last Admin: 07/16/18 12:36 Dose: 100 mls/hr Ketorolac Tromethamine (Toradol) 30 mg IVP Q6 [facility] Stop: 07/17/18 06:01 Lidocaine (Lidoderm) 1 ea TD DAILY [facility] Last Admin: 07/16/18 09:32 Dose: 1 ea Meclizine HCl (Antivert) 12.5 mg PO Q6H [facility] Last Admin: 07/16/18 09:52 Dose: 12.5 mg Metoprolol Tartrate (Lopressor) 50 mg PO BID [facility] Last Admin: 07/16/18 09:31 Dose: 50 mg Results - Vital Signs Recent Vital Signs: Last Vital Signs Temp 97.4 F L 07/16/18 14:27 Pulse 75 07/16/18 14:30 Resp 34 H 07/16/18 14:30 BP 162/111 H 07/16/18 13:23 Pulse Ox 96 07/16/18 14:30 - Labs Result Diagrams: 07/16/18 07:09 07/16/18 07:09 Labs: Laboratory Results - last 24 hr 07/16/18 07/16/18 07/16/18 07:09 07:09 09:54 WBC 18.3 H RBC 3.60 L Hgb 10.9 L Hct 31.8 L MCV 88.3 MCH 30.3 MCHC 34.3 RDW 13.1 Plt Count 268 MPV 9.5 Neut % (Auto) 89.7 H Lymph % (Auto) 7.1 L [place] % (Auto) 3.1 Eos % (Auto) 0.0 Baso % (Auto) 0.1 Neut # (Auto) 16.4 H Lymph # (Auto) 1.3 [place] # (Auto) 0.6 Eos # (Auto) 0.0 Baso # (Auto) 0.0 Neutrophils % (Manual) 88 H Band Neutrophils % 1 Lymphocytes % (Manual) 6 L Monocytes % (Manual) 5 Platelet Estimate Normal Hypochromasia (manual) Slight Poikilocytosis (manual Slight Anisocytosis (manual) Slight Puncture Site pCO2 pO2 HCO3 ABG pH ABG Total CO2 ABG O2 Saturation ABG Base Excess Ramon Test ABG Potassium A-a O2 Difference Respiratory Index Glucose Lactate Liter Flow FiO2 Sodium 135 Potassium 3.5 L Chloride 92 L Carbon Dioxide 33 H Anion Gap 14 BUN 7 Creatinine 0.7 Est GFR ( Amer) > 60 Est GFR (Non-Af Amer) > 60 Random Glucose 153 H D Calcium 8.6 Total Bilirubin 1.3 AST 68 H D ALT 33 Alkaline Phosphatase 95 Troponin I < 0.0120 < 0.0120 NT-Pro-B Natriuret Pep Total Protein 7.2 Albumin 3.8 Globulin 3.4 Albumin/Globulin Ratio 1.1 Arterial Blood Potassium Urine Color Urine Clarity Urine pH Ur Specific [place] Urine Protein Urine Glucose (UA) Urine Ketones Urine Blood Urine Nitrate Urine Bilirubin Urine Urobilinogen Ur Leukocyte Esterase Urine WBC (Auto) Urine RBC (Auto) 07/16/18 07/16/18 07/16/18 13:00 14:20 16:03 WBC RBC Hgb Hct MCV MCH MCHC RDW Plt Count MPV Neut % (Auto) Lymph % (Auto) [place] % (Auto) Eos % (Auto) Baso % (Auto) Neut # (Auto) Lymph # (Auto) [place] # (Auto) Eos # (Auto) Baso # (Auto) Neutrophils % (Manual) Band Neutrophils % Lymphocytes % (Manual) Monocytes % (Manual) Platelet Estimate Hypochromasia (manual) Poikilocytosis (manual Anisocytosis (manual) Puncture Site Rra pCO2 30 L pO2 177 H HCO3 29.0 H ABG pH 7.56 H ABG Total CO2 27.8 ABG O2 Saturation 99.9 H ABG Base Excess 5.2 H Ramon Test Pos ABG Potassium 3.7 A-a O2 Difference 499.0 Respiratory Index 2.8 Glucose 115 H Lactate 1.1 Liter Flow 15.0 FiO2 100.0 Sodium 139.0 Potassium Chloride 105.0 Carbon Dioxide Anion Gap BUN Creatinine Est GFR ( Amer) Est GFR (Non-Af Amer) Random Glucose Calcium Total Bilirubin AST ALT Alkaline Phosphatase Troponin I NT-Pro-B Natriuret Pep 1320 H Total Protein Albumin Globulin Albumin/Globulin Ratio Arterial Blood Potassium 3.7 Urine Color Yellow Urine Clarity Clear Urine pH 8.0 Ur Specific [place] 1.008 Urine Protein Negative Urine Glucose (UA) Normal Urine Ketones Negative Urine Blood Negative Urine Nitrate Negative Urine Bilirubin Negative Urine Urobilinogen Normal Ur Leukocyte Esterase Neg Urine WBC (Auto) < 1 Urine RBC (Auto) < 1 Attending/Attestation - Attestation I have personally seen and examined this patient.: Yes I have fully participated in the care of the patient.: Yes I have reviewed all pertinent clinical information: Yes Notes (Text): 07/16/18 16:38 I have seen and examined the patient. Medical records, lab studies, and imaging were reviewed by me and a management plan was formulated on multidisciplinary rounds with resident Dr. Chase. I agree with their documented assessment and plan. Patient was in pulmonary edema from fluid resuscitation. Will diurese and start on BIPAP. obtain echo r/o CHF. Patient also most likely has underlying COPD with terminal worker smoking hx, start nebulizers and inhaled steroids. Critical Care Time 35 minutes. Multi-disciplinary rounds were performed with house staff, nursing, speech therapy, respiratory therapy, pharmacy and nutrition with integrated input from the primary team/attending and other consulting services. The documented time is cumulative and includes review of patient data/exams/labs/chart review and examination of the patient on rounds and throughout the day; time is exclusive of any procedures or teaching time.
[2018-07-16] MEDS: Vancomycin 1 gm/NS 200 ml 1 GM/200 ML BAG IVPB SCH ×2 (14:37→20:56)
[2018-07-16 14:38] LABS: URINE BILIRUBIN NEGATIVE (NEGATIVE); URINE BLOOD NEGATIVE (NEGATIVE); URINE CLARITY Clear (Clear); URINE COLOR Yellow (YELLOW); URINE GLUCOSE (UA) NORMAL (Normal); URINE LEUKOCYTE ESTERASE NEG Leu/uL (Negative); URINE PROTEIN NEGATIVE (NEGATIVE); URINE UROBILINOGEN NORMAL mg/dL (0.2-1.0)
[2018-07-16] MEDS: Potassium Chloride 20 mEq ER Tab PO SCH (19:05)
--- NOTE | 2018-07-16 19:16 | CP.PCM.PN ---
Subjective - Date & Time of Evaluation Date of Evaluation: 07/16/18 - Subjective Subjective: patient seen today no nausea, no dizziness, no fever, no vomiting, no diarrhea no shortness of breath Objective - Vital Signs/Intake and Output Vital Signs (last 24 hours): Temp Pulse Resp BP Pulse Ox 97.4 F L 79 37 H 155/95 H 94 L 07/16/18 14:27 07/16/18 18:47 07/16/18 18:47 07/16/18 18:47 07/16/18 18:47 Intake and Output: 07/16/18 07/17/18 18:59 06:59 Intake Total 240 Output Total 400 Balance -160 - Medications Medications: Current Medications Albuterol/Ipratropium (Duoneb 3 Mg/0.5 Mg (3 Ml) Ud) 3 ml INH RQ4 [facility] Last Admin: 07/16/18 15:55 Dose: 3 ml Amlodipine Besylate (Norvasc) 5 mg PO DAILY [facility] Last Admin: 07/16/18 09:31 Dose: 5 mg Budesonide (Pulmicort Respules) 0.25 mg INH RQ12 [facility] Docusate Sodium (Colace) 100 mg PO BID [facility] Last Admin: 07/16/18 18:20 Dose: Not Given Enoxaparin Sodium (Lovenox) 40 mg SC DAILY [facility] Last Admin: 07/16/18 09:32 Dose: 40 mg Furosemide (Lasix) 40 mg IVP Q12H [facility] Hydromorphone HCl (Dilaudid) 0.25 mg IVP Q3H PRN PRN Reason: Pain, severe (8-10) Last Admin: 07/16/18 12:37 Dose: 0.25 mg Piperacillin Sod/Tazobactam Sod (Zosyn 3.375 Gm Iv Premix) 3.375 gm in 50 mls @ 100 mls/hr IVPB Q6H [facility]; Protocol Last Admin: 07/16/18 18:18 Dose: 100 mls/hr BUPIVACAINE 0.125%/0.9% NACL (Bupivacaine-Ns 0.125% On-Q Auto [employer]) 600 mls @ 4 mls/hr IJ ONCE ONE Stop: 07/21/18 20:59 Last Admin: 07/15/18 14:47 Dose: 4 mls/hr Vancomycin/Sodium Chloride (Vancomycin 1 Gm/Ns 200 Ml) 1 gm in 200 mls @ 133 mls/hr IVPB Q12H [facility]; Protocol Stop: 07/20/18 20:01 Last Admin: 07/16/18 14:37 Dose: Not Given Potassium Chloride/Dextrose/Sod Cl (Potassium Chl 40 Meq In D5-1/2ns) 1,000 mls @ 100 mls/hr IV .Q10H [facility] Last Admin: 07/16/18 18:18 Dose: 100 mls/hr Ketorolac Tromethamine (Toradol) 30 mg IVP Q6 [facility] Stop: 07/17/18 06:01 Last Admin: 07/16/18 18:20 Dose: Not Given Lidocaine (Lidoderm) 1 ea TD DAILY [facility] Last Admin: 07/16/18 09:32 Dose: 1 ea Meclizine HCl (Antivert) 12.5 mg PO Q6H [facility] Last Admin: 07/16/18 18:20 Dose: Not Given Metoprolol Tartrate (Lopressor) 50 mg PO BID [facility] Last Admin: 07/16/18 18:20 Dose: 50 mg Potassium Chloride (K-Dur 20 Meq Er Tab) 40 meq PO BRK [facility] Last Admin: 07/16/18 19:05 Dose: Not Given - Labs Labs: 07/16/18 07:09 07/16/18 07:09 - Constitutional Appears: Well - Head Exam Head Exam: ATRAUMATIC, NORMAL INSPECTION, NORMOCEPHALIC - Eye Exam Eye Exam: EOMI, Normal appearance, PERRL Pupil Exam: NORMAL ACCOMODATION, PERRL - ENT Exam ENT Exam: Mucous Membranes Moist, Normal Exam - Neck Exam Neck Exam: Full ROM, Normal Inspection. absent: Lymphadenopathy - Respiratory Exam Respiratory Exam: Decreased Breath Sounds - Cardiovascular Exam Cardiovascular Exam: REGULAR RHYTHM, +S1, +S2 - GI/Abdominal Exam GI & Abdominal Exam: Soft, Diminished Bowel Sounds - Rectal Exam Rectal Exam: Deferred - Neurological Exam Neurological Exam: Oriented x3 Assessment and Plan - Assessment and Plan (Free Text) Plan: plan discussed with patient moderate complexity of care bupivacane-ns colace duoneb lidoderm lovenox morphine potassium chl toradol vancomycin zofran inj zosyn medications reviewed vitals reviewed labs reviewed
[2018-07-16] MEDS: Budesonide 0.25 mg/2 ml Inhal Susp UD INH SCH (20:05)
[2018-07-16] MEDS ORDERED: HYDROmorphone 1 mg/ml ISec IVP STA (20:24)
--- NOTE | 2018-07-16 23:10 | CARD ---
APPROVED REPORT Date of service: 07/16/2018 EXAM: Two-dimensional and M-mode echocardiogram with Doppler and color Doppler. Other Information Quality : GoodRhythm : INDICATION Post-Op colostomy reversal 2D DIMENSIONS IVSd0.7 (0.7-1.1cm)LVDd4.5 (3.9-5.9cm) PWd0.8 (0.7-1.1cm)LA Rqquut84 (18-58mL) LVDs2.6 (2.5-4.0cm)FS (%) 41.8 % LVEF (%)72.9 (>50%)LVEF (Roberts's)66.05 % M-Mode DIMENSIONS Left Atrium (MM)3.12 (2.5-4.0cm)IVSd0.76 (0.7-1.1cm) Aortic Root3.04 (2.2-3.7cm)LVDd4.45 (4.0-5.6cm) Aortic Cusp Exc.1.69 (1.5-2.0cm)PWd0.78 (0.7-1.1cm) FS (%) 32 %LVDs3.04 (2.0-3.8cm) LVEF (%)60 (>50%) Mitral Valve MV E Fjnrjohz28.9cm/sMV A Kggthxms17.5cm/sE/A ratio0.8 TDI Lateral E' Peak V9.77cm/sMedial E' Peak V6.29cm/sE/Lateral E'7.5 E/Medial E'11.6 Tricuspid Valve TR Peak [id number]/sTR Peak [id number] LEFT VENTRICLE The left ventricle is normal size. There is normal left ventricular wall thickness. Left ventricle systolic function is normal. The Ejection Fraction is >70%. There is normal LV segmental wall motion. Tissue Doppler imaging reveals abnormal left ventricular diastolic dysfunction. RIGHT VENTRICLE The right ventricle is normal size. There is normal right ventricular wall thickness. The right ventricular systolic function is normal. ATRIA The left atrium size is normal. The right atrium size is normal. The interatrial septum is intact with no evidence for an atrial septal defect. AORTIC VALVE The aortic valve is normal in structure. No aortic regurgitation is present. There is no aortic valvular stenosis. There is no aortic valvular vegetation. MITRAL VALVE The mitral valve is normal in structure. There is no evidence of mitral valve prolapse. There is no mitral valve stenosis. Mitral regurgitation is mild. TRICUSPID VALVE The tricuspid valve is normal in structure. There is mild tricuspid regurgitation. Right ventricular systolic pressure is estimated at 40-50 mmHg. There is mild-moderate pulmonary hypertension. PULMONIC VALVE The pulmonic valve is not well visualized. There is mild pulmonic valvular regurgitation. GREAT VESSELS The aortic root is normal in size. PERICARDIAL EFFUSION There is no significant pericardial effusion. <Conclusion> Left ventricle systolic function is normal. The Ejection Fraction is >70%. Diastolic dysfunction. No aortic regurgitation is present. Mitral regurgitation is mild. There is mild tricuspid regurgitation. There is mild-moderate pulmonary hypertension. There is mild pulmonic valvular regurgitation.
[2018-07-17] MEDS: Albuterol-Ipratrop 3 mg / 0.5 (3 ml) UD INH SCH ×6 (00:07→19:08)
[2018-07-17] MEDS: HYDROmorphone 0.5 mg/0.5 ml ISec IVP PRN ×5 (02:00→22:04)
[2018-07-17] MEDS: Piperacill/Tazo 3.375gm in Dex 3.375 GM/50 ML BAG IVPB SCH ×4 (05:35→22:07)
[2018-07-17] MEDS: Potassium Chl 40 mEq in D5-1/2 1,000 ML IV SCH (05:36)
[2018-07-17 06:11] LABS: BASO % 0.2 % (0.0-2.0); HEMOGLOBIN 11.4 g/dL (11.0-16.0); LYMPH # 1.2 K/uL (1.0-4.3); LYMPH % 6.7 % (20.0-40.0); MEAN CELL VOLUME 88.1 fL (81.0-99.0); MEAN CORPUSCULAR HEMOGLOBIN 30.4 pg (27.0-31.0); MEAN CORPUSCULAR HGB CONC 34.5 g/dL (33.0-37.0); MEAN PLATELET VOLUME 9.3 fL (7.2-11.7); MONO % 5.9 % (0.0-10.0); NEUT # 15.2 K/uL (1.8-7.0); NEUT % 87.2 % (50.0-75.0); PLATELET COUNT 347 K/uL (130-400); RBC 3.75 Mil/uL (3.80-5.20); WHITE BLOOD COUNT 17.5 K/uL (4.8-10.8)
[2018-07-17 07:39] LABS: ARTERIAL BLOOD GAS PCO2 36 mm/Hg (35-45); ARTERIAL BLOOD GAS PH 7.49 (7.35-7.45); ARTERIAL BLOOD GAS PO2 75 mm/Hg (80-100); ARTERIAL BLOOD GAS TCO2 28.5 mmol/L (22-28)
[2018-07-17] MEDS: Budesonide 0.25 mg/2 ml Inhal Susp UD INH SCH ×2 (07:46→19:08)
[2018-07-17 08:11] LABS: ALBUMIN 4.2 g/dL (3.5-5.0); ALT/SGPT 15 U/L (9-52); AST/SGOT 58 U/L (14-36); BLOOD UREA NITROGEN 22 mg/dL (7-17); GFR NON-AFRICAN AMERICAN > 60
[2018-07-17 08:26] LABS: MONOCYTE 4 % (0-10); TOTAL CELLS COUNTED 100
[2018-07-17 08:27] LABS: LYMPHOCYTE 10 % (20-40); NEUTROPHIL 86 % (50-75); PLATELET ESTIMATE NORMAL (NORMAL)
[2018-07-17 08:28] LABS: ANISOCYTOSIS SLIGHT; HYPOCHROMIC SLIGHT; POIKILOCYTOSIS SLIGHT
--- NOTE | 2018-07-17 08:59 | CP.PCM.PN ---
<MerchantStanislaw - Last Filed: 07/17/18 09:04> Subjective - Date & Time of Evaluation Date of Evaluation: 07/17/18 Time of Evaluation: 08:54 - Subjective Subjective: Surgery Progress note- Dr. Gavin Yesterday patient desaturated and transferred to ICU. BiPAP overnight, saturating 94%. Repeat CXR performed showing continued b/l infiltrates. + flatus, denies BM. continued crampy abd pain, improved from yesterday. Fabrice: 50 cc serosang fluid. Mason 1900cc clear urine. Denies fevers, chills, nausea, vomiting. On IV Abx Objective - Vital Signs/Intake and Output Vital Signs (last 24 hours): Temp Pulse Resp BP Pulse Ox 97.4 F L 75 44 H 156/92 H 94 L 07/16/18 14:27 07/17/18 07:47 07/17/18 07:10 07/17/18 06:47 07/17/18 07:10 - Medications Medications: Current Medications Albuterol/Ipratropium (Duoneb 3 Mg/0.5 Mg (3 Ml) Ud) 3 ml INH RQ4 [facility] Last Admin: 07/17/18 07:46 Dose: 3 ml Amlodipine Besylate (Norvasc) 5 mg PO DAILY [facility] Last Admin: 07/16/18 09:31 Dose: 5 mg Budesonide (Pulmicort Respules) 0.25 mg INH RQ12 [facility] Last Admin: 07/17/18 07:46 Dose: 0.25 mg Docusate Sodium (Colace) 100 mg PO BID [facility] Last Admin: 07/16/18 18:20 Dose: Not Given Enoxaparin Sodium (Lovenox) 40 mg SC DAILY [facility] Last Admin: 07/16/18 09:32 Dose: 40 mg Furosemide (Lasix) 40 mg IVP Q12H [facility] Last Admin: 07/17/18 00:35 Dose: 40 mg Hydromorphone HCl (Dilaudid) 0.25 mg IVP Q3H PRN PRN Reason: Pain, severe (8-10) Last Admin: 07/17/18 05:33 Dose: 0.25 mg Piperacillin Sod/Tazobactam Sod (Zosyn 3.375 Gm Iv Premix) 3.375 gm in 50 mls @ 100 mls/hr IVPB Q6H [facility]; Protocol Last Admin: 07/17/18 05:35 Dose: 100 mls/hr BUPIVACAINE 0.125%/0.9% NACL (Bupivacaine-Ns 0.125% On-Q Intensive Care Unit Registered Nurse) 600 mls @ 4 mls/ hr IJ ONCE ONE Stop: 07/21/18 20:59 Last Admin: 07/15/18 14:47 Dose: 4 mls/hr Vancomycin/Sodium Chloride (Vancomycin 1 Gm/Ns 200 Ml) 1 gm in 200 mls @ 133 mls/hr IVPB Q12H [facility]; Protocol Stop: 07/20/18 20:01 Last Admin: 07/16/18 20:56 Dose: 133 mls/hr Potassium Chloride/Dextrose/Sod Cl (Potassium Chl 40 Meq In D5-1/2ns) 1,000 mls @ 100 mls/hr IV .Q10H [facility] Last Admin: 07/17/18 05:36 Dose: Not Given Lidocaine (Lidoderm) 1 ea TD DAILY [facility] Last Admin: 07/16/18 09:32 Dose: 1 ea Meclizine HCl (Antivert) 12.5 mg PO Q6H [facility] Last Admin: 07/17/18 03:31 Dose: Not Given Metoprolol Tartrate (Lopressor) 50 mg PO BID [facility] Last Admin: 07/16/18 18:20 Dose: 50 mg Potassium Chloride (K-Dur 20 Meq Er Tab) 40 meq PO BRK [facility] Last Admin: 07/16/18 19:05 Dose: Not Given - Labs Labs: 07/17/18 06:00 07/17/18 07:39 - Constitutional Appears: Non-toxic, No Acute Distress - Eye Exam Eye Exam: EOMI. absent: Scleral icterus - ENT Exam ENT Exam: Mucous Membranes Moist - Respiratory Exam Respiratory Exam: Wheezes, NORMAL BREATHING PATTERN (tachypnic. on BiPAP). absent: Accessory Muscle Use, Respiratory Distress - Cardiovascular Exam Cardiovascular Exam: absent: Bradycardia, Tachycardia - GI/Abdominal Exam GI & Abdominal Exam: Soft, Tenderness (generalized abdominal tenderness). absent: Distended, Firm, Guarding, Rigid Additional comments: dressings in place. C/D/I - Neurological Exam Neurological Exam: Alert, Awake, Oriented x3 - Psychiatric Exam Psychiatric exam: Normal Affect - Skin Skin Exam: Intact, Warm Assessment and Plan - Assessment and Plan (Free Text) Assessment: 58F s/p laparotomy, extensive LARISSA, colon & rectal resection, w/ primary anastomosis, removal of rectal foreign body, myomectomy, cholecystectomy, POD#4 Plan: Pain control PRN Maintain O2 saturation > 88% currently on BiPAP f/u AM CXR and ABG c/s Pulm; all recs appreciated MAP > 64 NGT D/C'd yesterday NPO Monitor for bowel function anti-emetic PRN Physical therapy OOB and ambulation further recs per Dr. Romaine Gurrola PGY2 <Dieter Gavin B - Last Filed: 07/20/18 20:02> Objective - Vital Signs/Intake and Output Vital Signs (last 24 hours): Temp Pulse Resp BP Pulse Ox 97.4 F L 62 26 H 143/66 99 07/20/18 16:00 07/20/18 19:31 07/20/18 19:31 07/20/18 19:31 07/20/18 19:31 Intake and Output: 07/20/18 07/21/18 18:59 06:59 Intake Total 1090 240 Output Total 600 Balance 490 240 - Medications Medications: Current Medications Albuterol/Ipratropium (Duoneb 3 Mg/0.5 Mg (3 Ml) Ud) 3 ml INH RQ4 [facility] Last Admin: 07/20/18 19:31 Dose: 3 ml Amlodipine Besylate (Norvasc) 5 mg PO DAILY [facility] Last Admin: 07/20/18 09:57 Dose: 5 mg Atovaquone (Mepron) 750 mg PO BID [facility]; Protocol Last Admin: 07/20/18 18:18 Dose: 750 mg Docusate Sodium (Colace) 100 mg PO BID [facility] Last Admin: 07/20/18 18:19 Dose: Not Given Famotidine (Pepcid) 20 mg IVP DAILY [facility] Last Admin: 07/20/18 09:56 Dose: 20 mg Fluoxetine HCl (Prozac) 20 mg PO DAILY [facility] Last Admin: 07/20/18 09:56 Dose: 20 mg Heparin Sodium (Porcine) (Heparin) 5,000 units SC Q12H [facility] Last Admin: 07/20/18 08:08 Dose: 5,000 units Hydromorphone HCl (Dilaudid) 0.5 mg IVP Q8H PRN PRN Reason: Pain, severe (8-10) Last Admin: 07/20/18 14:27 Dose: 0.5 mg BUPIVACAINE 0.125%/0.9% NACL (Bupivacaine-Ns 0.125% On-Q Intensive Care Unit Registered Nurse) 600 mls @ 7 mls/hr IJ ONCE ONE Stop: 07/21/18 01:42 Last Admin: 07/17/18 22:54 Dose: 7 mls/hr Doxycycline Hyclate 100 mg/ (Sodium Chloride) 100 mls @ 100 mls/hr IVPB Q12H [facility]; Protocol Last Admin: 07/20/18 09:57 Dose: 100 mls/hr Lidocaine (Lidoderm) 1 ea TD DAILY [facility] Last Admin: 07/20/18 09:57 Dose: 1 ea Methylprednisolone (Solu-Medrol) 40 mg IVP Q12 [facility] Last Admin: 07/20/18 09:56 Dose: 40 mg Metoprolol Tartrate (Lopressor) 50 mg PO BID [facility] Last Admin: 07/20/18 18:18 Dose: Not Given Potassium Chloride (K-Dur 20 Meq Er Tab) 40 meq PO BRK [facility] Last Admin: 07/20/18 08:08 Dose: 40 meq - Labs Labs: 07/20/18 06:09 07/20/18 06:07 Attending/Attestation - Attestation I have fully participated in the care of the patient.: Yes I have reviewed all pertinent clinical information, including history, physical exam and plan: Yes Notes (Text): Pt had more SOB ICU consult for evaluation of hypoxia BIPAP DC NG tube keep pt NPO, IVF C.w current mx Plan d.w pt in detail
[2018-07-17] MEDS: Vancomycin 1 gm/NS 200 ml 1 GM/200 ML BAG IVPB SCH ×2 (09:24→20:30)
[2018-07-17] MEDS: Enoxaparin 40 mg Syringe SC SCH (09:27)
[2018-07-17] MEDS: Lidocaine 5% Patch TD SCH (09:28)
[2018-07-17] MEDS: Potassium Chloride 20 mEq ER Tab PO SCH (09:28)
--- NOTE | 2018-07-17 09:59 | RAD ---
Chest x-ray single frontal view HISTORY: Follow-up chest x-ray. Comparison: 07/16/2018. Findings: Dense confluent consolidative opacification seen within the right upper to mid lung zone, lateral aspect of the right lung base, and left lung base. Diffuse increased interstitial lung markings. Scattered nodularity in both lung roca. Enlarged ectatic aorta with calcification at the aortic knob. Cardiomegaly. Degenerative changes in the spine and shoulders. Impression: Dense confluent consolidative opacification seen within the right upper to mid lung zone, lateral aspect of the right lung base, and left lung base. Diffuse increased interstitial lung markings. Scattered nodularity in both lung roca. Enlarged ectatic aorta with calcification at the aortic knob. Cardiomegaly.
--- NOTE | 2018-07-17 10:17 | CP.CCUPN ---
<Fausto Chase - Last Filed: 07/17/18 10:15> CCU Subjective - Physician Review Subjective (Free Text): 07/17/18 10:15 Fausto Chase PGY1 Progress Note for Dr. Iris Castillo Patient was examined at bedside this morning. She reports feeling nauseous and short of breath at times. She denies any chest pain, and continues to deny history of heart or valvular disease. As per RN report, 1950cc urine output overnight. Patient reports passing flatus, denying any bowel movements as of yet. 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 CCU Objective - Vital Signs / Intake & Output Vital Signs (Last 4 hours): Vital Signs Pulse Resp BP Pulse Ox 07/17/18 09:35 34 H 07/17/18 07:47 75 07/17/18 07:10 79 44 H 94 L 07/17/18 07:00 75 37 H 97 07/17/18 06:50 79 42 H 96 07/17/18 06:47 78 38 H 156/92 H 94 L 07/17/18 06:40 79 94 L 07/17/18 06:30 77 39 H 94 L 07/17/18 06:20 85 38 H Intake and Output (Last 8hrs): Intake & Output 07/16/18 07/17/18 07/17/18 22:59 06:59 14:59 Intake Total 656 525 50 Output Total 1055 940 0 Balance -399 -415 50 Weight 50.1 kg Intake: Intake, IV Amount 616 425 50 Left Hand 616 425 50 Oral 40 100 0 Output: Drainage 20 Right Abdomen 20 Urine 1055 920 Urethral (Vega) 1055 920 Emesis 0 0 0 Other: # Bowel Movements 0 0 0 - Physical Exam Head: Positive for: Atraumatic, Normocephalic Pupils: Positive for: PERRL Extroacular Muscles: Positive for: EOMI Conjunctiva: Positive for: Normal Mouth: Positive for: Moist Mucous Membranes Neck: Positive for: Normal Range of Motion Respiratory/Chest: Positive for: Decreased Breath Sounds. Negative for: Respiratory Distress, Accessory Muscle Use, Wheezes Cardiovascular: Positive for: Regular Rate and Rhythm, Normal S1, S2. Negative for: Murmurs, Rub, Gallop Abdomen: Positive for: Normal Bowel Sounds, Other (surgical site clean/dry/intact). Negative for: Tenderness, Distention, Peritoneal Signs Genitourinary/Pelvic Exam: Positive for: Other (vega in place draining clear yellow liquid) Upper Extremity: Positive for: Normal Inspection. Negative for: Cyanosis, Edema Lower Extremity: Positive for: Normal Inspection. Negative for: Edema Neurological: Positive for: GCS=15, CN II-XII Intact, Speech Normal Skin: Positive for: Warm, Normal Color. Negative for: Dry, Rashes Psychiatric: Positive for: Alert, Oriented x 3, Normal Insight, Normal Concentration - Medications Active Medications: Active Medications Generic Name Dose Route Start Last Admin Trade Name Freq PRN Reason Stop Dose Admin Albuterol/Ipratropium 3 ml 07/15/18 20:00 07/17/18 07:46 Duoneb 3 Mg/0.5 Mg (3 Ml) Ud INH 3 ml RQ4 NORA Administration Amlodipine Besylate 5 mg 07/16/18 10:00 07/17/18 09:27 Norvasc PO 5 mg DAILY NORA Administration Budesonide 0.25 mg 07/16/18 20:00 07/17/18 07:46 Pulmicort Respules INH 0.25 mg RQ12 NORA Administration Docusate Sodium 100 mg 07/13/18 18:00 07/17/18 09:27 Colace PO 100 mg BID NORA Administration Enoxaparin Sodium 40 mg 07/15/18 10:00 07/17/18 09:27 Lovenox SC 40 mg DAILY NORA Administration Famotidine 20 mg 07/17/18 10:00 07/17/18 09:28 Pepcid IVP 20 mg DAILY NORA Administration Fluoxetine HCl 20 mg 07/17/18 10:00 Prozac PO DAILY NORA Furosemide 40 mg 07/17/18 00:00 07/17/18 00:35 Lasix IVP 40 mg Q12H NORA Administration Hydromorphone HCl 0.25 mg 07/16/18 07:52 07/17/18 05:33 Dilaudid IVP 0.25 mg Q3H PRN Administration Pain, severe (8-10) Piperacillin Sod/Tazobactam Sod 3.375 gm in 50 mls @ 100 mls/hr 07/14/18 17:00 07/17/18 05:35 Zosyn 3.375 Gm Iv Premix IVPB 100 mls/hr Q6H NORA Administration Protocol BUPIVACAINE 0.125%/0.9% NACL 600 mls @ 4 mls/hr 07/15/18 15:00 07/15/18 14:47 Bupivacaine-Ns 0.125% On-Q Cable Coverer IJ 07/21/18 20:59 4 mls/hr ONCE ONE Administration Vancomycin/Sodium Chloride 1 gm in 200 mls @ 133 mls/hr 07/15/18 20:00 07/17/18 09:24 Vancomycin 1 Gm/Ns 200 Ml IVPB 07/20/18 20:01 133 mls/hr Q12H NORA Administration Protocol Lidocaine 1 ea 07/14/18 17:32 07/17/18 09:28 Lidoderm TD 1 ea DAILY NORA Administration Meclizine HCl 12.5 mg 07/16/18 09:30 07/17/18 09:27 Antivert PO 12.5 mg Q6H NORA Administration Metoprolol Tartrate 50 mg 07/16/18 10:00 07/17/18 09:28 Lopressor PO 50 mg BID NORA Administration Potassium Chloride 40 meq 07/16/18 18:45 07/17/18 09:28 K-Dur 20 Meq Er Tab PO 40 meq BRK NORA Administration - Patient Studies Lab Studies: Lab Studies 07/17/18 07/17/18 07/17/18 Range/Units 07:39 07:36 06:00 WBC 17.5 H (4.8-10.8) K/uL RBC 3.75 L (3.80-5.20) Mil/uL Hgb 11.4 (11.0-16.0) g/dL Hct 33.1 L (34.0-47.0) % MCV 88.1 (81.0-99.0) fL MCH 30.4 (27.0-31.0) pg MCHC 34.5 (33.0-37.0) g/dL RDW 13.0 (11.5-14.5) % Plt Count 347 (130-400) K/uL MPV 9.3 (7.2-11.7) fL Neut % (Auto) 87.2 H (50.0-75.0) % Lymph % (Auto) 6.7 L (20.0-40.0) % [place] % (Auto) 5.9 (0.0-10.0) % Eos % (Auto) 0.0 (0.0-4.0) % Baso % (Auto) 0.2 (0.0-2.0) % Neut # (Auto) 15.2 H (1.8-7.0) K/uL Lymph # (Auto) 1.2 (1.0-4.3) K/uL [place] # (Auto) 1.0 H (0.0-0.8) K/uL Eos # (Auto) 0.0 (0.0-0.7) K/uL Baso # (Auto) 0.0 (0.0-0.2) K/uL Neutrophils % (Manual) 86 H (50-75) % Lymphocytes % (Manual) 10 L (20-40) % Monocytes % (Manual) 4 (0-10) % Platelet Estimate Normal (NORMAL) Hypochromasia (manual) Slight Poikilocytosis (manual Slight Anisocytosis (manual) Slight Puncture Site Rb pCO2 36 (35-45) mm/Hg pO2 75 L (80-100) mm/Hg HCO3 28.0 (21-28) mmol/L ABG pH 7.49 H (7.35-7.45) ABG Total CO2 28.5 H (22-28) mmol/L ABG O2 Saturation 98.0 (95-98) % ABG Base Excess 4.0 H (-2.0-3.0) mmol/L ABG Hemoglobin 11.0 L (11.7-17.4) g/dL ABG Carboxyhemoglobin 2.2 H (0.5-1.5) % POC ABG HHb (Measured) 1.9 (0.0-5.0) % ABG Methemoglobin 0.7 (0.0-3.0) % Ramon Test Na ABG Potassium (3.6-5.2) mmol/L A-a O2 Difference 308.0 mm/Hg Respiratory Index 4.1 Hgb O2 Saturation 95.1 (95.0-98.0) % Sodium 139 (132-148) mmol/l Chloride 96 L (98-107) mmol/L Glucose (65-105) mg/dl Lactate (0.7-2.1) mmol/L Liter Flow Vent Mode Bipap FiO2 60.0 % Tidal Volume 344 Inspiratory BiPAP 10 Expiratory BiPAP 5 Potassium 3.8 (3.6-5.2) mmol/L Carbon Dioxide 30 (22-30) mmol/L Anion Gap 17 (10-20) BUN 22 H (7-17) mg/dL Creatinine 0.7 (0.7-1.2) mg/dL Est GFR ( Amer) > 60 Est GFR (Non-Af Amer) > 60 Random Glucose 128 H (65-105) mg/dL Calcium 9.0 (8.6-10.4) mg/dl Phosphorus 3.9 (2.5-4.5) mg/dL Magnesium 2.0 (1.6-2.3) mg/dL Total Bilirubin 1.3 (0.2-1.3) mg/dL AST 58 H (14-36) U/L ALT 15 (9-52) U/L Alkaline Phosphatase 96 (38-126) U/L Troponin I (0.00-0.120) ng/mL NT-Pro-B Natriuret Pep (0-900) pg/mL Total Protein 8.5 H (6.3-8.3) g/dL Albumin 4.2 (3.5-5.0) g/dL Globulin 4.3 H (2.2-3.9) gm/dL Albumin/Globulin Ratio 1.0 (1.0-2.1) Arterial Blood Potassium (3.6-5.2) mmol/L Urine Color (YELLOW) Urine Clarity (Clear) Urine pH (5.0-8.0) Ur Specific [place] (1.003-1.030) Urine Protein (NEGATIVE) mg/dL Urine Glucose (UA) (Normal) mg/dL Urine Ketones (NEGATIVE) mg/dL Urine Blood (NEGATIVE) Urine Nitrate (NEGATIVE) Urine Bilirubin (NEGATIVE) Urine Urobilinogen (0.2-1.0) mg/dL Ur Leukocyte Esterase (Negative) Farheen/uL Urine WBC (Auto) (0-5) /hpf Urine RBC (Auto) (0-3) /hpf 07/16/18 07/16/18 07/16/18 Range/Units 16:03 14:20 13:00 WBC (4.8-10.8) K/uL RBC (3.80-5.20) Mil/uL Hgb (11.0-16.0) g/dL Hct (34.0-47.0) % MCV (81.0-99.0) fL MCH (27.0-31.0) pg MCHC (33.0-37.0) g/dL RDW (11.5-14.5) % Plt Count (130-400) K/uL MPV (7.2-11.7) fL Neut % (Auto) (50.0-75.0) % Lymph % (Auto) (20.0-40.0) % [place] % (Auto) (0.0-10.0) % Eos % (Auto) (0.0-4.0) % Baso % (Auto) (0.0-2.0) % Neut # (Auto) (1.8-7.0) K/uL Lymph # (Auto) (1.0-4.3) K/uL [place] # (Auto) (0.0-0.8) K/uL Eos # (Auto) (0.0-0.7) K/uL Baso # (Auto) (0.0-0.2) K/uL Neutrophils % (Manual) (50-75) % Lymphocytes % (Manual) (20-40) % Monocytes % (Manual) (0-10) % Platelet Estimate (NORMAL) Hypochromasia (manual) Poikilocytosis (manual Anisocytosis (manual) Puncture Site Rra pCO2 30 L (35-45) mm/Hg pO2 177 H (80-100) mm/Hg HCO3 29.0 H (21-28) mmol/L ABG pH 7.56 H (7.35-7.45) ABG Total CO2 27.8 (22-28) mmol/L ABG O2 Saturation 99.9 H (95-98) % ABG Base Excess 5.2 H (-2.0-3.0) mmol/L ABG Hemoglobin (11.7-17.4) g/dL ABG Carboxyhemoglobin (0.5-1.5) % POC ABG HHb (Measured) (0.0-5.0) % ABG Methemoglobin (0.0-3.0) % Ramon Test Pos ABG Potassium 3.7 (3.6-5.2) mmol/L A-a O2 Difference 499.0 mm/Hg Respiratory Index 2.8 Hgb O2 Saturation (95.0-98.0) % Sodium 139.0 (132-148) mmol/l Chloride 105.0 (98-107) mmol/L Glucose 115 H (65-105) mg/dl Lactate 1.1 (0.7-2.1) mmol/L Liter Flow 15.0 Vent Mode FiO2 100.0 % Tidal Volume Inspiratory BiPAP Expiratory BiPAP Potassium (3.6-5.2) mmol/L Carbon Dioxide (22-30) mmol/L Anion Gap (10-20) BUN (7-17) mg/dL Creatinine (0.7-1.2) mg/dL Est GFR ( Amer) Est GFR (Non-Af Amer) Random Glucose (65-105) mg/dL Calcium (8.6-10.4) mg/dl Phosphorus (2.5-4.5) mg/dL Magnesium (1.6-2.3) mg/dL Total Bilirubin (0.2-1.3) mg/dL AST (14-36) U/L ALT (9-52) U/L Alkaline Phosphatase (38-126) U/L Troponin I (0.00-0.120) ng/mL NT-Pro-B Natriuret Pep 1320 H (0-900) pg/mL Total Protein (6.3-8.3) g/dL Albumin (3.5-5.0) g/dL Globulin (2.2-3.9) gm/dL Albumin/Globulin Ratio (1.0-2.1) Arterial Blood Potassium 3.7 (3.6-5.2) mmol/L Urine Color Yellow (YELLOW) Urine Clarity Clear (Clear) Urine pH 8.0 (5.0-8.0) Ur Specific [place] 1.008 (1.003-1.030) Urine Protein Negative (NEGATIVE) mg/dL Urine Glucose (UA) Normal (Normal) mg/dL Urine Ketones Negative (NEGATIVE) mg/dL Urine Blood Negative (NEGATIVE) Urine Nitrate Negative (NEGATIVE) Urine Bilirubin Negative (NEGATIVE) Urine Urobilinogen Normal (0.2-1.0) mg/dL Ur Leukocyte Esterase Neg (Negative) Farheen/uL Urine WBC (Auto) < 1 (0-5) /hpf Urine RBC (Auto) < 1 (0-3) /hpf 07/16/18 Range/Units 09:54 WBC (4.8-10.8) K/uL RBC (3.80-5.20) Mil/uL Hgb (11.0-16.0) g/dL Hct (34.0-47.0) % MCV (81.0-99.0) fL MCH (27.0-31.0) pg MCHC (33.0-37.0) g/dL RDW (11.5-14.5) % Plt Count (130-400) K/uL MPV (7.2-11.7) fL Neut % (Auto) (50.0-75.0) % Lymph % (Auto) (20.0-40.0) % [place] % (Auto) (0.0-10.0) % Eos % (Auto) (0.0-4.0) % Baso % (Auto) (0.0-2.0) % Neut # (Auto) (1.8-7.0) K/uL Lymph # (Auto) (1.0-4.3) K/uL [place] # (Auto) (0.0-0.8) K/uL Eos # (Auto) (0.0-0.7) K/uL Baso # (Auto) (0.0-0.2) K/uL Neutrophils % (Manual) (50-75) % Lymphocytes % (Manual) (20-40) % Monocytes % (Manual) (0-10) % Platelet Estimate (NORMAL) Hypochromasia (manual) Poikilocytosis (manual Anisocytosis (manual) Puncture Site pCO2 (35-45) mm/Hg pO2 (80-100) mm/Hg HCO3 (21-28) mmol/L ABG pH (7.35-7.45) ABG Total CO2 (22-28) mmol/L ABG O2 Saturation (95-98) % ABG Base Excess (-2.0-3.0) mmol/L ABG Hemoglobin (11.7-17.4) g/dL ABG Carboxyhemoglobin (0.5-1.5) % POC ABG HHb (Measured) (0.0-5.0) % ABG Methemoglobin (0.0-3.0) % Ramon Test ABG Potassium (3.6-5.2) mmol/L A-a O2 Difference mm/Hg Respiratory Index Hgb O2 Saturation (95.0-98.0) % Sodium (132-148) mmol/l Chloride (98-107) mmol/L Glucose (65-105) mg/dl Lactate (0.7-2.1) mmol/L Liter Flow Vent Mode FiO2 % Tidal Volume Inspiratory BiPAP Expiratory BiPAP Potassium (3.6-5.2) mmol/L Carbon Dioxide (22-30) mmol/L Anion Gap (10-20) BUN (7-17) mg/dL Creatinine (0.7-1.2) mg/dL Est GFR ( Amer) Est GFR (Non-Af Amer) Random Glucose (65-105) mg/dL Calcium (8.6-10.4) mg/dl Phosphorus (2.5-4.5) mg/dL Magnesium (1.6-2.3) mg/dL Total Bilirubin (0.2-1.3) mg/dL AST (14-36) U/L ALT (9-52) U/L Alkaline Phosphatase (38-126) U/L Troponin I < 0.0120 (0.00-0.120) ng/mL NT-Pro-B Natriuret Pep (0-900) pg/mL Total Protein (6.3-8.3) g/dL Albumin (3.5-5.0) g/dL Globulin (2.2-3.9) gm/dL Albumin/Globulin Ratio (1.0-2.1) Arterial Blood Potassium (3.6-5.2) mmol/L Urine Color (YELLOW) Urine Clarity (Clear) Urine pH (5.0-8.0) Ur Specific [place] (1.003-1.030) Urine Protein (NEGATIVE) mg/dL Urine Glucose (UA) (Normal) mg/dL Urine Ketones (NEGATIVE) mg/dL Urine Blood (NEGATIVE) Urine Nitrate (NEGATIVE) Urine Bilirubin (NEGATIVE) Urine Urobilinogen (0.2-1.0) mg/dL Ur Leukocyte Esterase (Negative) Farheen/uL Urine WBC (Auto) (0-5) /hpf Urine RBC (Auto) (0-3) /hpf Laboratory Results - last 24 hr 07/16/18 07/16/1807/16/19 09:54 13:00 14:20 WBC RBC Hgb Hct MCV MCH MCHC RDW Plt Count MPV Neut % (Auto) Lymph % (Auto) [place] % (Auto) Eos % (Auto) Baso % (Auto) Neut # (Auto) Lymph # (Auto) [place] # (Auto) Eos # (Auto) Baso # (Auto) Neutrophils % (Manual) Lymphocytes % (Manual) Monocytes % (Manual) Platelet Estimate Hypochromasia (manual) Poikilocytosis (manual Anisocytosis (manual) Puncture Site Rra pCO2 30 L pO2 177 H HCO3 29.0 H ABG pH 7.56 H ABG Total CO2 27.8 ABG O2 Saturation 99.9 H ABG Base Excess 5.2 H ABG Hemoglobin ABG Carboxyhemoglobin POC ABG HHb (Measured) ABG Methemoglobin Ramon Test Pos ABG Potassium 3.7 A-a O2 Difference 499.0 Respiratory Index 2.8 Hgb O2 Saturation Sodium 139.0 Chloride 105.0 Glucose 115 H Lactate 1.1 Liter Flow 15.0 Vent Mode FiO2 100.0 Tidal Volume Inspiratory BiPAP Expiratory BiPAP Potassium Carbon Dioxide Anion Gap BUN Creatinine Est GFR ( Amer) Est GFR (Non-Af Amer) Random Glucose Calcium Phosphorus Magnesium Total Bilirubin AST ALT Alkaline Phosphatase Troponin I < 0.0120 NT-Pro-B Natriuret Pep Total Protein Albumin Globulin Albumin/Globulin Ratio Arterial Blood Potassium 3.7 Urine Color Yellow Urine Clarity Clear Urine pH 8.0 Ur Specific [place] 1.008 Urine Protein Negative Urine Glucose (UA) Normal Urine Ketones Negative Urine Blood Negative Urine Nitrate Negative Urine Bilirubin Negative Urine Urobilinogen Normal Ur Leukocyte Esterase Neg Urine WBC (Auto) < 1 Urine RBC (Auto) < 1 07/16/18 07/17/18 07/17/18 16:03 06:00 07:36 WBC 17.5 H RBC 3.75 L Hgb 11.4 Hct 33.1 L MCV 88.1 MCH 30.4 MCHC 34.5 RDW 13.0 Plt Count 347 MPV 9.3 Neut % (Auto) 87.2 H Lymph % (Auto) 6.7 L [place] % (Auto) 5.9 Eos % (Auto) 0.0 Baso % (Auto) 0.2 Neut # (Auto) 15.2 H Lymph # (Auto) 1.2 [place] # (Auto) 1.0 H Eos # (Auto) 0.0 Baso # (Auto) 0.0 Neutrophils % (Manual) 86 H Lymphocytes % (Manual) 10 L Monocytes % (Manual) 4 Platelet Estimate Normal Hypochromasia (manual) Slight Poikilocytosis (manual Slight Anisocytosis (manual) Slight Puncture Site Rb pCO2 36 pO2 75 L HCO3 28.0 ABG pH 7.49 H ABG Total CO2 28.5 H ABG O2 Saturation 98.0 ABG Base Excess 4.0 H ABG Hemoglobin 11.0 L ABG Carboxyhemoglobin 2.2 H POC ABG HHb (Measured) 1.9 ABG Methemoglobin 0.7 Ramon Test Na ABG Potassium A-a O2 Difference 308.0 Respiratory Index 4.1 Hgb O2 Saturation 95.1 Sodium Chloride Glucose Lactate Liter Flow Vent Mode Bipap FiO2 60.0 Tidal Volume 344 Inspiratory BiPAP 10 Expiratory BiPAP 5 Potassium Carbon Dioxide Anion Gap BUN Creatinine Est GFR ( Amer) Est GFR (Non-Af Amer) Random Glucose Calcium Phosphorus Magnesium Total Bilirubin AST ALT Alkaline Phosphatase Troponin I NT-Pro-B Natriuret Pep 1320 H Total Protein Albumin Globulin Albumin/Globulin Ratio Arterial Blood Potassium Urine Color Urine Clarity Urine pH Ur Specific [place] Urine Protein Urine Glucose (UA) Urine Ketones Urine Blood Urine Nitrate Urine Bilirubin Urine Urobilinogen Ur Leukocyte Esterase Urine WBC (Auto) Urine RBC (Auto) 07/17/18 07:39 WBC RBC Hgb Hct MCV MCH MCHC RDW Plt Count MPV Neut % (Auto) Lymph % (Auto) [place] % (Auto) Eos % (Auto) Baso % (Auto) Neut # (Auto) Lymph # (Auto) [place] # (Auto) Eos # (Auto) Baso # (Auto) Neutrophils % (Manual) Lymphocytes % (Manual) Monocytes % (Manual) Platelet Estimate Hypochromasia (manual) Poikilocytosis (manual Anisocytosis (manual) Puncture Site pCO2 pO2 HCO3 ABG pH ABG Total CO2 ABG O2 Saturation ABG Base Excess ABG Hemoglobin ABG Carboxyhemoglobin POC ABG HHb (Measured) ABG Methemoglobin Ramon Test ABG Potassium A-a O2 Difference Respiratory Index Hgb O2 Saturation Sodium 139 Chloride 96 L Glucose Lactate Liter Flow Vent Mode FiO2 Tidal Volume Inspiratory BiPAP Expiratory BiPAP Potassium 3.8 Carbon Dioxide 30 Anion Gap 17 BUN 22 H Creatinine 0.7 Est GFR ( Amer) > 60 Est GFR (Non-Af Amer) > 60 Random Glucose 128 H Calcium 9.0 Phosphorus 3.9 Magnesium 2.0 Total Bilirubin 1.3 AST 58 H ALT 15 Alkaline Phosphatase 96 Troponin I NT-Pro-B Natriuret Pep Total Protein 8.5 H Albumin 4.2 Globulin 4.3 H Albumin/Globulin Ratio 1.0 Arterial Blood Potassium Urine Color Urine Clarity Urine pH Ur Specific [place] Urine Protein Urine Glucose (UA) Urine Ketones Urine Blood Urine Nitrate Urine Bilirubin Urine Urobilinogen Ur Leukocyte Esterase Urine WBC (Auto) Urine RBC (Auto) Radiology Impressions: Radiology Impressions Chest X-Ray 07/16/18 13:10 IMPRESSION: Moderate to severe interstitial prominence may represent infection or edema. Cardiomegaly. Dense atherosclerotic calcifications of an ectatic aorta. Right upper quadrant surgical clips. Chest X-Ray 07/17/18 06:50 Impression: Dense confluent consolidative opacification seen within the right upper to mid lung zone, lateral aspect of the right lung base, and left lung base. Diffuse increased interstitial lung markings. Scattered nodularity in both lung roca. Enlarged ectatic aorta with calcification at the aortic knob. Cardiomegaly. Review of Systems - Review of Systems Review of Systems: 12 point ROS performed and negative other than what is stated in HPI Critical Care Progress Note - Nutrition Nutrition: Nutrition Category Date Time Status NPO Diet [DIET] Diets 07/15/18 Dinner Active Assessment/Plan - Assessment and Plan (Free Text) Assessment: Patient is a 58yo F with PMH HTN, colostomy, depression who presented to ED for colostomy reversal. S/p Laparotomy, extensive lysis of adhesions, colon resection, rectal resection, primary anastomosis of colon and rectum, rectal foreign body removal, myomectomy, cholecystectomy, and OnQ placement POD #4. ICU consulted for RN PERITONEAL DIALYSIS due to hypoxia. Fluid overloaded on CXR, will continue diuresis. Removed from bipap, placed on high flow O2. Plan: Neuro: - AAOx3 - GSC 15 - no focal deficits Cardiovascular: - h/o HTN - ECHO: diastolic dysfunction, MR, pulmonary HTN. EF >70%. - norvasc, metoprolol tartrate - maintain normotension - lasix 40 IV q12h - bumex 2mg IVP once Pulm: - high flow O2 - lasix 40 IV q12h - bumex 2mg IVP once - duonebs q4h - CXR: dense confluent consolidative opacification in R upper to mid lung and b/l lung bases. fluid overload. increased interstitial lung markings - maintain SpO2> 92% GI: - s/p Laparotomy, extensive lysis of adhesions, colon resection, rectal resection, primary anastomosis of colon and rectum, rectal foreign body removal, myomectomy, cholecystectomy, and OnQ placement POD #4 - continue wound care as per surgical team - colace - montior bowel function Renal: - hold IVF - continue diuresis Heme: - H/H stable - no active issues ID: - leukocytosis, likely reactive - Vanc and Zosyn : - vega placed to monitor I/Os Psych - h/o anxiety/depression - continue prozac PPx GI: pepcid DVT: lovenox NPO Patient seen and case discussed with Jigar Guy - Last Filed: 07/17/18 13:56> CCU Subjective - Physician Review Critical Care Time Spent (in minutes): 48 CCU Objective - Vital Signs / Intake & Output Vital Signs (Last 4 hours): Vital Signs Temp Pulse Resp BP Pulse Ox 07/17/18 11:27 30 H 07/17/18 11:20 82 28 H 94 L 07/17/18 11:10 83 30 H 91 L 07/17/18 11:00 83 35 H 92 L 07/17/18 10:50 88 42 H 85 L 07/17/18 10:46 87 44 H 141/99 H 86 L 07/17/18 10:40 84 35 H 07/17/18 10:30 89 34 H 91 L 07/17/18 10:20 88 33 H 92 L 07/17/18 10:10 87 37 H 140/97 H 93 L 07/17/18 10:00 97.5 F L 86 38 H 133/85 90 L Intake and Output (Last 8hrs): Intake & Output 07/16/18 07/17/18 07/17/18 22:59 06:59 14:59 Intake Total 656 525 350 Output Total 1055 940 500 Balance -399 -415 -150 Weight 110 lb 7.225 oz 112 lb Intake: Intake, IV Amount 616 425 350 Left Hand 616 425 350 Oral 40 100 0 Output: Drainage 20 Right Abdomen 20 Urine 1055 920 500 Urethral (Vega) 1055 920 500 Emesis 0 0 0 Other: # Bowel Movements 0 0 0 - Medications Active Medications: Active Medications Generic Name Dose Route Start Last Admin Trade Name Freq PRN Reason Stop Dose Admin Albuterol/Ipratropium 3 ml 07/15/18 20:00 07/17/18 11:22 Duoneb 3 Mg/0.5 Mg (3 Ml) Ud INH 3 ml RQ4 NORA Administration Amlodipine Besylate 5 mg 07/16/18 10:00 07/17/18 09:27 Norvasc PO 5 mg DAILY NORA Administration Budesonide 0.25 mg 07/16/18 20:00 07/17/18 07:46 Pulmicort Respules INH 0.25 mg RQ12 NORA Administration Docusate Sodium 100 mg 07/13/18 18:00 07/17/18 09:27 Colace PO 100 mg BID NORA Administration Enoxaparin Sodium 40 mg 07/15/18 10:00 07/17/18 09:27 Lovenox SC 40 mg DAILY NORA Administration Famotidine 20 mg 07/17/18 10:00 07/17/18 09:28 Pepcid IVP 20 mg DAILY NORA Administration Fluoxetine HCl 20 mg 07/17/18 10:00 Prozac PO DAILY NORA Furosemide 40 mg 07/17/18 00:00 07/17/18 00:35 Lasix IVP 40 mg Q12H NORA Administration Hydromorphone HCl 0.25 mg 07/16/18 07:52 07/17/18 11:21 Dilaudid IVP 0.25 mg Q3H PRN Administration Pain, severe (8-10) Piperacillin Sod/Tazobactam Sod 3.375 gm in 50 mls @ 100 mls/hr 07/14/18 17:00 07/17/18 11:21 Zosyn 3.375 Gm Iv Premix IVPB 100 mls/hr Q6H NORA Administration Protocol Vancomycin/Sodium Chloride 1 gm in 200 mls @ 133 mls/hr 07/15/18 20:00 07/17/18 09:24 Vancomycin 1 Gm/Ns 200 Ml IVPB 07/20/18 20:01 133 mls/hr Q12H NORA Administration Protocol BUPIVACAINE 0.125%/0.9% NACL 600 mls @ 4 mls/hr 07/17/18 12:00 Bupivacaine-Ns 0.125% On-Q [employer] IJ 07/23/18 17:59 ONCE ONE Lidocaine 1 ea 07/14/18 17:32 07/17/18 09:28 Lidoderm TD 1 ea DAILY NORA Administration Meclizine HCl 12.5 mg 07/16/18 09:30 07/17/18 09:27 Antivert PO 12.5 mg Q6H NORA Administration Metoprolol Tartrate 50 mg 07/16/18 10:00 07/17/18 09:28 Lopressor PO 50 mg BID NORA Administration Potassium Chloride 40 meq 07/16/18 18:45 07/17/18 09:28 K-Dur 20 Meq Er Tab PO 40 meq BRK NORA Administration - Patient Studies Lab Studies: Microbiology Studies 07/16/18 14:20 Urine Culture - Final Urine,Catheterized No Growth (<1,000 CFU/ML) Lab Studies 07/17/18 07/17/18 07/17/18 Range/Units 07:39 07:36 06:00 WBC 17.5 H (4.8-10.8) K/uL RBC 3.75 L (3.80-5.20) Mil/uL Hgb 11.4 (11.0-16.0) g/dL Hct 33.1 L (34.0-47.0) % MCV 88.1 (81.0-99.0) fL MCH 30.4 (27.0-31.0) pg MCHC 34.5 (33.0-37.0) g/dL RDW 13.0 (11.5-14.5) % Plt Count 347 (130-400) K/uL MPV 9.3 (7.2-11.7) fL Neut % (Auto) 87.2 H (50.0-75.0) % Lymph % (Auto) 6.7 L (20.0-40.0) % [place] % (Auto) 5.9 (0.0-10.0) % Eos % (Auto) 0.0 (0.0-4.0) % Baso % (Auto) 0.2 (0.0-2.0) % Neut # (Auto) 15.2 H (1.8-7.0) K/uL Lymph # (Auto) 1.2 (1.0-4.3) K/uL [place] # (Auto) 1.0 H (0.0-0.8) K/uL Eos # (Auto) 0.0 (0.0-0.7) K/uL Baso # (Auto) 0.0 (0.0-0.2) K/uL Neutrophils % (Manual) 86 H (50-75) % Lymphocytes % (Manual) 10 L (20-40) % Monocytes % (Manual) 4 (0-10) % Platelet Estimate Normal (NORMAL) Hypochromasia (manual) Slight Poikilocytosis (manual Slight Anisocytosis (manual) Slight Puncture Site Rb pCO2 36 (35-45) mm/Hg pO2 75 L (80-100) mm/Hg HCO3 28.0 (21-28) mmol/L ABG pH 7.49 H (7.35-7.45) ABG Total CO2 28.5 H (22-28) mmol/L ABG O2 Saturation 98.0 (95-98) % ABG Base Excess 4.0 H (-2.0-3.0) mmol/L ABG Hemoglobin 11.0 L (11.7-17.4) g/dL ABG Carboxyhemoglobin 2.2 H (0.5-1.5) % POC ABG HHb (Measured) 1.9 (0.0-5.0) % ABG Methemoglobin 0.7 (0.0-3.0) % Ramon Test Na A-a O2 Difference 308.0 mm/Hg Respiratory Index 4.1 Hgb O2 Saturation 95.1 (95.0-98.0) % Vent Mode Bipap FiO2 60.0 % [place]idal Volume 344 Inspiratory BiPAP 10 Expiratory BiPAP 5 Sodium 139 (132-148) mmol/L Potassium 3.8 (3.6-5.2) mmol/L Chloride 96 L (98-107) mmol/L Carbon Dioxide 30 (22-30) mmol/L Anion Gap 17 (10-20) BUN 22 H (7-17) mg/dL Creatinine 0.7 (0.7-1.2) mg/dL Est GFR ( Amer) > 60 Est GFR (Non-Af Amer) > 60 Random Glucose 128 H (65-105) mg/dL Calcium 9.0 (8.6-10.4) mg/dl Phosphorus 3.9 (2.5-4.5) mg/dL Magnesium 2.0 (1.6-2.3) mg/dL Total Bilirubin 1.3 (0.2-1.3) mg/dL AST 58 H (14-36) U/L ALT 15 (9-52) U/L Alkaline Phosphatase 96 (38-126) U/L NT-Pro-B Natriuret Pep (0-900) pg/mL Total Protein 8.5 H (6.3-8.3) g/dL Albumin 4.2 (3.5-5.0) g/dL Globulin 4.3 H (2.2-3.9) gm/dL Albumin/Globulin Ratio 1.0 (1.0-2.1) Urine Color (YELLOW) Urine Clarity (Clear) Urine pH (5.0-8.0) Ur Specific [place] (1.003-1.030) Urine Protein (NEGATIVE) mg/dL Urine Glucose (UA) (Normal) mg/dL Urine Ketones (NEGATIVE) mg/dL Urine Blood (NEGATIVE) Urine Nitrate (NEGATIVE) Urine Bilirubin (NEGATIVE) Urine Urobilinogen (0.2-1.0) mg/dL Ur Leukocyte Esterase (Negative) [place]/uL Urine WBC (Auto) (0-5) /hpf Urine RBC (Auto) (0-3) /hpf 07/16/18 07/16/18 Range/Units 16:03 14:20 WBC (4.8-10.8) K/uL RBC (3.80-5.20) Mil/uL Hgb (11.0-16.0) g/dL Hct (34.0-47.0) % MCV (81.0-99.0) fL MCH (27.0-31.0) pg MCHC (33.0-37.0) g/dL RDW (11.5-14.5) % Plt Count (130-400) K/uL MPV (7.2-11.7) fL Neut % (Auto) (50.0-75.0) % Lymph % (Auto) (20.0-40.0) % [place] % (Auto) (0.0-10.0) % Eos % (Auto) (0.0-4.0) % Baso % (Auto) (0.0-2.0) % Neut # (Auto) (1.8-7.0) K/uL Lymph # (Auto) (1.0-4.3) K/uL [place] # (Auto) (0.0-0.8) K/uL Eos # (Auto) (0.0-0.7) K/uL Baso # (Auto) (0.0-0.2) K/uL Neutrophils % (Manual) (50-75) % Lymphocytes % (Manual) (20-40) % Monocytes % (Manual) (0-10) % Platelet Estimate (NORMAL) Hypochromasia (manual) Poikilocytosis (manual Anisocytosis (manual) Puncture Site pCO2 (35-45) mm/Hg pO2 (80-100) mm/Hg HCO3 (21-28) mmol/L ABG pH (7.35-7.45) ABG Total CO2 (22-28) mmol/L ABG O2 Saturation (95-98) % ABG Base Excess (-2.0-3.0) mmol/L ABG Hemoglobin (11.7-17.4) g/dL ABG Carboxyhemoglobin (0.5-1.5) % POC ABG HHb (Measured) (0.0-5.0) % ABG Methemoglobin (0.0-3.0) % Ramon Test A-a O2 Difference mm/Hg Respiratory Index Hgb O2 Saturation (95.0-98.0) % Vent Mode FiO2 % Tidal Volume Inspiratory BiPAP Expiratory BiPAP Sodium (132-148) mmol/L Potassium (3.6-5.2) mmol/L Chloride (98-107) mmol/L Carbon Dioxide (22-30) mmol/L Anion Gap (10-20) BUN (7-17) mg/dL Creatinine (0.7-1.2) mg/dL Est GFR ( Amer) Est GFR (Non-Af Amer) Random Glucose (65-105) mg/dL Calcium (8.6-10.4) mg/dl Phosphorus (2.5-4.5) mg/dL Magnesium (1.6-2.3) mg/dL Total Bilirubin (0.2-1.3) mg/dL AST (14-36) U/L ALT (9-52) U/L Alkaline Phosphatase (38-126) U/L NT-Pro-B Natriuret Pep 1320 H (0-900) pg/mL Total Protein (6.3-8.3) g/dL Albumin (3.5-5.0) g/dL Globulin (2.2-3.9) gm/dL Albumin/Globulin Ratio (1.0-2.1) Urine Color Yellow (YELLOW) Urine Clarity Clear (Clear) Urine pH 8.0 (5.0-8.0) Ur Specific [place] 1.008 (1.003-1.030) Urine Protein Negative (NEGATIVE) mg/dL Urine Glucose (UA) Normal (Normal) mg/dL Urine Ketones Negative (NEGATIVE) mg/dL Urine Blood Negative (NEGATIVE) Urine Nitrate Negative (NEGATIVE) Urine Bilirubin Negative (NEGATIVE) Urine Urobilinogen Normal (0.2-1.0) mg/dL Ur Leukocyte Esterase Neg (Negative) [place]heen/uL Urine WBC (Auto) < 1 (0-5) /hpf Urine RBC (Auto) < 1 (0-3) /hpf Laboratory Results - last 24 hr 07/16/18 07/16/18 07/17/18 14:20 16:03 06:00 WBC 17.5 H RBC 3.75 L Hgb 11.4 Hct 33.1 L MCV 88.1 MCH 30.4 MCHC 34.5 RDW 13.0 Plt Count 347 MPV 9.3 Neut % (Auto) 87.2 H Lymph % (Auto) 6.7 L [place] % (Auto) 5.9 Eos % (Auto) 0.0 Baso % (Auto) 0.2 Neut # (Auto) 15.2 H Lymph # (Auto) 1.2 [place] # (Auto) 1.0 H Eos # (Auto) 0.0 Baso # (Auto) 0.0 Neutrophils % (Manual) 86 H Lymphocytes % (Manual) 10 L Monocytes % (Manual) 4 Platelet Estimate Normal Hypochromasia (manual) Slight Poikilocytosis (manual Slight Anisocytosis (manual) Slight Puncture Site pCO2 pO2 HCO3 ABG pH ABG Total CO2 ABG O2 Saturation ABG Base Excess ABG Hemoglobin ABG Carboxyhemoglobin POC ABG HHb (Measured) ABG Methemoglobin Ramon Test A-a O2 Difference Respiratory Index Hgb O2 Saturation Vent Mode FiO2 Tidal Volume Inspiratory BiPAP Expiratory BiPAP Sodium Potassium Chloride Carbon Dioxide Anion Gap BUN Creatinine Est GFR ( Amer) Est GFR (Non-Af Amer) Random Glucose Calcium Phosphorus Magnesium Total Bilirubin AST ALT Alkaline Phosphatase NT-Pro-B Natriuret Pep 1320 H Total Protein Albumin Globulin Albumin/Globulin Ratio Urine Color Yellow Urine Clarity Clear Urine pH 8.0 Ur Specific [place] 1.008 Urine Protein Negative Urine Glucose (UA) Normal Urine Ketones Negative Urine Blood Negative Urine Nitrate Negative Urine Bilirubin Negative Urine Urobilinogen Normal Ur Leukocyte Esterase Neg Urine WBC (Auto) < 1 Urine RBC (Auto) < 1 07/17/18 07/17/18 07:36 07:39 WBC RBC Hgb Hct MCV MCH MCHC RDW Plt Count MPV Neut % (Auto) Lymph % (Auto) [place] % (Auto) Eos % (Auto) Baso % (Auto) Neut # (Auto) Lymph # (Auto) [place] # (Auto) Eos # (Auto) Baso # (Auto) Neutrophils % (Manual) Lymphocytes % (Manual) Monocytes % (Manual) Platelet Estimate Hypochromasia (manual) Poikilocytosis (manual Anisocytosis (manual) Puncture Site Rb pCO2 36 pO2 75 L HCO3 28.0 ABG pH 7.49 H ABG Total CO2 28.5 H ABG O2 Saturation 98.0 ABG Base Excess 4.0 H ABG Hemoglobin 11.0 L ABG Carboxyhemoglobin 2.2 H POC ABG HHb (Measured) 1.9 ABG Methemoglobin 0.7 Ramon Test Na A-a O2 Difference 308.0 Respiratory Index 4.1 Hgb O2 Saturation 95.1 Vent Mode Bipap FiO2 60.0 Tidal Volume 344 Inspiratory BiPAP 10 Expiratory BiPAP 5 Sodium 139 Potassium 3.8 Chloride 96 L Carbon Dioxide 30 Anion Gap 17 BUN 22 H Creatinine 0.7 Est GFR ( Amer) > 60 Est GFR (Non-Af Amer) > 60 Random Glucose 128 H Calcium 9.0 Phosphorus 3.9 Magnesium 2.0 Total Bilirubin 1.3 AST 58 H ALT 15 Alkaline Phosphatase 96 NT-Pro-B Natriuret Pep Total Protein 8.5 H Albumin 4.2 Globulin 4.3 H Albumin/Globulin Ratio 1.0 Urine Color Urine Clarity Urine pH Ur Specific [place] Urine Protein Urine Glucose (UA) Urine Ketones Urine Blood Urine Nitrate Urine Bilirubin Urine Urobilinogen Ur Leukocyte Esterase Urine WBC (Auto) Urine RBC (Auto) Radiology Impressions: Radiology Impressions Chest X-Ray 07/16/18 13:10 IMPRESSION: Moderate to severe interstitial prominence may represent infection or edema. Cardiomegaly. Dense atherosclerotic calcifications of an ectatic aorta. Right upper quadrant surgical clips. Chest X-Ray 07/17/18 06:50 Impression: Dense confluent consolidative opacification seen within the right upper to mid lung zone, lateral aspect of the right lung base, and left lung base. Diffuse increased interstitial lung markings. Scattered nodularity in both lung roca. Enlarged ectatic aorta with calcification at the aortic knob. Cardiomegaly. Critical Care Progress Note - Nutrition Nutrition: Nutrition Category Date Time Status NPO Diet [DIET] Diets 07/15/18 Dinner Active Assessment/Plan - Assessment and Plan (Free Text) Plan: I have seen and examined this patient with above resident. During rounds, medical records, lab studies, and imaging were reviewed by me and a management plan was formulated on multidisciplinary rounds with resident Dr. Chase. I agree with their documented assessment and plan. -Hypoxic respiratory failure/pulmonary hypertenion: 2nd pulmonary congestion due to likely mitral reguarigation, contine negaive balance -Chronic diastolic heart failure: continue negative balance and then add acei to decrease preload and afterload -d/c vega -titrate FiO2 to keep sp2o >92, attempt to high -flow (off bi-pap for 4 hours) -cannot rule out PE without an IV contrast CT angio) -will optimize negative balance and obtain CT chest and or V/Q scan -continue home medications, start oral meds Critical Care Time 48 minutes. Prognosis guarded (?ild) - Date & Time Date: 07/17/18 Time: 13:56
[2018-07-17] MEDS ORDERED: BUPIVACAINE 0.125%/0.9% NACL 600 ML IJ ONE ×2 (12:00→22:54)
--- NOTE | 2018-07-17 19:28 | CP.PCM.PN ---
Subjective - Date & Time of Evaluation Date of Evaluation: 07/17/18 - Subjective Subjective: patient examined today no nausea, no vomiting, no dizziness, no diarrhea, no fever no shortness of breath Objective - Vital Signs/Intake and Output Vital Signs (last 24 hours): Temp Pulse Resp BP Pulse Ox 98.1 F 76 31 H 150/100 H 95 07/17/18 18:00 07/17/18 19:10 07/17/18 16:30 07/17/18 15:47 07/17/18 18:00 Intake and Output: 07/17/18 07/18/18 18:59 06:59 Intake Total 350 Output Total 900 Balance -550 - Medications Medications: Current Medications Albuterol/Ipratropium (Duoneb 3 Mg/0.5 Mg (3 Ml) Ud) 3 ml INH RQ4 [facility] Last Admin: 07/17/18 19:08 Dose: 3 ml Amlodipine Besylate (Norvasc) 5 mg PO DAILY [facility] Last Admin: 07/17/18 09:27 Dose: 5 mg Budesonide (Pulmicort Respules) 0.25 mg INH RQ12 [facility] Last Admin: 07/17/18 19:08 Dose: 0.25 mg Docusate Sodium (Colace) 100 mg PO BID [facility] Last Admin: 07/17/18 18:45 Dose: 100 mg Enoxaparin Sodium (Lovenox) 40 mg SC DAILY [facility] Last Admin: 07/17/18 09:27 Dose: 40 mg Famotidine (Pepcid) 20 mg IVP DAILY [facility] Last Admin: 07/17/18 09:28 Dose: 20 mg Fluoxetine HCl (Prozac) 20 mg PO DAILY [facility] Last Admin: 07/17/18 18:46 Dose: 20 mg Furosemide (Lasix) 40 mg IVP Q12H [facility] Last Admin: 07/17/18 12:45 Dose: 40 mg Hydromorphone HCl (Dilaudid) 0.25 mg IVP Q3H PRN PRN Reason: Pain, severe (8-10) Last Admin: 07/17/18 18:53 Dose: 0.25 mg Piperacillin Sod/Tazobactam Sod (Zosyn 3.375 Gm Iv Premix) 3.375 gm in 50 mls @ 100 mls/hr IVPB Q6H [facility]; Protocol Last Admin: 07/17/18 18:45 Dose: 100 mls/hr Vancomycin/Sodium Chloride (Vancomycin 1 Gm/Ns 200 Ml) 1 gm in 200 mls @ 133 mls/hr IVPB Q12H [facility]; Protocol Stop: 07/20/18 20:01 Last Admin: 07/17/18 09:24 Dose: 133 mls/hr BUPIVACAINE 0.125%/0.9% NACL (Bupivacaine-Ns 0.125% On-Q Business Practices Officer) 600 mls @ 4 mls/hr IJ ONCE ONE Stop: 07/23/18 17:59 Lidocaine (Lidoderm) 1 ea TD DAILY [facility] Last Admin: 07/17/18 09:28 Dose: 1 ea Meclizine HCl (Antivert) 12.5 mg PO Q6H [facility] Last Admin: 07/17/18 15:45 Dose: 12.5 mg Metoprolol Tartrate (Lopressor) 50 mg PO BID [facility] Last Admin: 07/17/18 18:46 Dose: 50 mg Potassium Chloride (K-Dur 20 Meq Er Tab) 40 meq PO BRK [facility] Last Admin: 07/17/18 09:28 Dose: 40 meq - Labs Labs: 07/17/18 06:00 07/17/18 07:39 - Constitutional Appears: Well - Head Exam Head Exam: ATRAUMATIC, NORMAL INSPECTION, NORMOCEPHALIC - Eye Exam Eye Exam: EOMI, Normal appearance, PERRL Pupil Exam: NORMAL ACCOMODATION, PERRL - ENT Exam ENT Exam: Mucous Membranes Moist, Normal Exam - Neck Exam Neck Exam: Full ROM, Normal Inspection. absent: Lymphadenopathy - Respiratory Exam Respiratory Exam: Decreased Breath Sounds - Cardiovascular Exam Cardiovascular Exam: REGULAR RHYTHM, +S1, +S2 - GI/Abdominal Exam GI & Abdominal Exam: Soft, Diminished Bowel Sounds - Rectal Exam Rectal Exam: Deferred - Neurological Exam Neurological Exam: Oriented x3 Assessment and Plan - Assessment and Plan (Free Text) Plan: plan discussed with patient moderate complexity of care bupivacane-ns colace duoneb lidoderm lovenox morphine prozac potassium chl toradol vancomycin zofran inj zosyn medications reviewed vitals reviewed labs reviewed
[2018-07-17 21:03] LABS: BLOOD UREA NITROGEN 25 mg/dL (7-17); CALCIUM 9.4 mg/dl (8.6-10.4); GFR NON-AFRICAN AMERICAN > 60
[2018-07-18] MEDS: Albuterol-Ipratrop 3 mg / 0.5 (3 ml) UD INH SCH ×6 (00:17→19:36)
--- NOTE | 2018-07-18 00:27 | CARD ---
APPROVED REPORT Date of service: 07/16/2018 EKG Measurement Heart [id number] <Conclusion> Normal sinus rhythm Prolonged QT Abnormal ECG
[2018-07-18] MEDS: HYDROmorphone 0.5 mg/0.5 ml ISec IVP PRN ×2 (03:03→21:30)
[2018-07-18] MEDS: Piperacill/Tazo 3.375gm in Dex 3.375 GM/50 ML BAG IVPB SCH ×4 (05:00→22:30)
[2018-07-18 06:23] LABS: BASO % 0.3 % (0.0-2.0); EOS % 0.2 % (0.0-4.0); HEMOGLOBIN 10.1 g/dL (11.0-16.0); LYMPH # 1.3 K/uL (1.0-4.3); LYMPH % 8.5 % (20.0-40.0); MEAN CELL VOLUME 87.8 fL (81.0-99.0); MEAN CORPUSCULAR HEMOGLOBIN 29.6 pg (27.0-31.0); MEAN CORPUSCULAR HGB CONC 33.7 g/dL (33.0-37.0); MEAN PLATELET VOLUME 8.8 fL (7.2-11.7); MONO # 1.1 K/uL (0.0-0.8); MONO % 7.2 % (0.0-10.0); NEUT # 12.9 K/uL (1.8-7.0); NEUT % 83.8 % (50.0-75.0); PLATELET COUNT 331 K/uL (130-400); RED CELL DISTRIBUTION WIDTH 12.7 % (11.5-14.5); WHITE BLOOD COUNT 15.3 K/uL (4.8-10.8)
[2018-07-18 06:44] LABS: ALB/GLOB RATIO 1.1 (1.0-2.1); ALBUMIN 3.9 g/dL (3.5-5.0); CALCIUM 9.5 mg/dl (8.6-10.4)
[2018-07-18] MEDS: Budesonide 0.25 mg/2 ml Inhal Susp UD INH SCH (07:48)
--- NOTE | 2018-07-18 08:04 | CP.PCM.PN ---
<AllanSamuel - Last Filed: 07/18/18 07:59> Subjective - Date & Time of Evaluation Date of Evaluation: 07/18/18 Time of Evaluation: 07:59 - Subjective Subjective: General Surgery Note for Dr. Gavin Patient seen and examined at bedside. Overnight, patient was on BiPAP. Patient states her pain is control. ON-q is helping. She denies fever/chills or nausea/vomiting. She is passing flatus and had a BM yesterday. Denies SOB. Objective - Vital Signs/Intake and Output Vital Signs (last 24 hours): Temp Pulse Resp BP Pulse Ox 97.9 F 72 30 H 139/77 93 L 07/18/18 06:00 07/18/18 07:48 07/18/18 06:00 07/18/18 06:00 07/18/18 06:00 Intake and Output: 07/18/18 07/18/18 06:59 18:59 Intake Total 380 Output Total 820 Balance -440 - Medications Medications: Current Medications Albuterol/Ipratropium (Duoneb 3 Mg/0.5 Mg (3 Ml) Ud) 3 ml INH RQ4 [facility] Last Admin: 07/18/18 07:47 Dose: 3 ml Amlodipine Besylate (Norvasc) 5 mg PO DAILY [facility] Last Admin: 07/17/18 09:27 Dose: 5 mg Budesonide (Pulmicort Respules) 0.25 mg INH RQ12 [facility] Last Admin: 07/18/18 07:48 Dose: 0.25 mg Docusate Sodium (Colace) 100 mg PO BID [facility] Last Admin: 07/17/18 18:45 Dose: 100 mg Famotidine (Pepcid) 20 mg IVP DAILY [facility] Last Admin: 07/17/18 09:28 Dose: 20 mg Fluoxetine HCl (Prozac) 20 mg PO DAILY [facility] Last Admin: 07/17/18 18:46 Dose: 20 mg Heparin Sodium (Porcine) (Heparin) 5,000 units SC Q12H [facility] Hydromorphone HCl (Dilaudid) 0.25 mg IVP Q3H PRN PRN Reason: Pain, severe (8-10) Last Admin: 07/18/18 03:03 Dose: 0.25 mg Piperacillin Sod/Tazobactam Sod (Zosyn 3.375 Gm Iv Premix) 3.375 gm in 50 mls @ 100 mls/hr IVPB Q6H [facility]; Protocol Last Admin: 07/18/18 05:00 Dose: 100 mls/hr BUPIVACAINE 0.125%/0.9% NACL (Bupivacaine-Ns 0.125% On-Q Lasting Machine Operator Hand Method) 600 mls @ 7 ml s/hr IJ ONCE ONE Stop: 07/21/18 01:42 Last Admin: 07/17/18 22:54 Dose: 7 mls/hr Lidocaine (Lidoderm) 1 ea TD DAILY [facility] Last Admin: 07/17/18 09:28 Dose: 1 ea Meclizine HCl (Antivert) 12.5 mg PO Q6H [facility] Last Admin: 07/18/18 03:08 Dose: 12.5 mg Metoprolol Tartrate (Lopressor) 50 mg PO BID [facility] Last Admin: 07/17/18 18:46 Dose: 50 mg Potassium Chloride (K-Dur 20 Meq Er Tab) 40 meq PO BRK [facility] - Labs Labs: 07/18/18 06:15 07/18/18 06:15 - Additional Findings Additional findings: - Constitutional Appears: Non-toxic, No Acute Distress - Eye Exam Eye Exam: EOMI. absent: Scleral icterus - ENT Exam ENT Exam: Mucous Membranes Moist - Respiratory Exam Respiratory Exam: NORMAL BREATHING PATTERN (using BiPAP). absent: Accessory Muscle Use, Respiratory Distress - Cardiovascular Exam Cardiovascular Exam: RRR - GI/Abdominal Exam GI & Abdominal Exam: Soft, Tenderness (generalized abdominal tenderness). absent: Distended, Firm, Guarding, Rigid Additional comments: dressings in place - clean, dry and intact - Neurological Exam Neurological Exam: Alert, Awake, Oriented x3 - Psychiatric Exam Psychiatric exam: Normal Affect - Skin Skin Exam: Intact, Warm Assessment and Plan - Assessment and Plan (Free Text) Assessment: 58F s/p laparotomy, extensive LARISSA, colon & rectal resection, w/ primary anastomosis, removal of rectal foreign body, myomectomy, cholecystectomy, POD#5 Plan: NPO Pain control f/u Pulm, all recs appreciated Monitor for bowel function anti-emetic PRN PT OOB/IS/ambulation further recommendations as per Dr. Romaine Lemus PGY2 <Dieter Gavin - Last Filed: 07/20/18 20:03> Objective - Vital Signs/Intake and Output Vital Signs (last 24 hours): Temp Pulse Resp BP Pulse Ox 97.4 F L 62 26 H 143/66 99 07/20/18 16:00 07/20/18 19:31 07/20/18 19:31 07/20/18 19:31 07/20/18 19:31 Intake and Output: 07/20/18 07/21/18 18:59 06:59 Intake Total 1090 240 Output Total 600 Balance 490 240 - Medications Medications: Current Medications Albuterol/Ipratropium (Duoneb 3 Mg/0.5 Mg (3 Ml) Ud) 3 ml INH RQ4 [facility] Last Admin: 07/20/18 19:31 Dose: 3 ml Amlodipine Besylate (Norvasc) 5 mg PO DAILY [facility] Last Admin: 07/20/18 09:57 Dose: 5 mg Atovaquone (Mepron) 750 mg PO BID [facility]; Protocol Last Admin: 07/20/18 18:18 Dose: 750 mg Docusate Sodium (Colace) 100 mg PO BID [facility] Last Admin: 07/20/18 18:19 Dose: Not Given Famotidine (Pepcid) 20 mg IVP DAILY [facility] Last Admin: 07/20/18 09:56 Dose: 20 mg Fluoxetine HCl (Prozac) 20 mg PO DAILY [facility] Last Admin: 07/20/18 09:56 Dose: 20 mg Heparin Sodium (Porcine) (Heparin) 5,000 units SC Q12H [facility] Last Admin: 07/20/18 08:08 Dose: 5,000 units Hydromorphone HCl (Dilaudid) 0.5 mg IVP Q8H PRN PRN Reason: Pain, severe (8-10) Last Admin: 07/20/18 14:27 Dose: 0.5 mg BUPIVACAINE 0.125%/0.9% NACL (Bupivacaine-Ns 0.125% On-Q Lasting Machine Operator Hand Method) 600 mls @ 7 mls/hr IJ ONCE ONE Stop: 07/21/18 01:42 Last Admin: 07/17/18 22:54 Dose: 7 mls/hr Doxycycline Hyclate 100 mg/ (Sodium Chloride) 100 mls @ 100 mls/hr IVPB Q12H [facility]; Protocol Last Admin: 07/20/18 09:57 Dose: 100 mls/hr Lidocaine (Lidoderm) 1 ea TD DAILY [facility] Last Admin: 07/20/18 09:57 Dose: 1 ea Methylprednisolone (Solu-Medrol) 40 mg IVP Q12 [facility] Last Admin: 07/20/18 09:56 Dose: 40 mg Metoprolol Tartrate (Lopressor) 50 mg PO BID [facility] Last Admin: 07/20/18 18:18 Dose: Not Given Potassium Chloride (K-Dur 20 Meq Er Tab) 40 meq PO BRK [facility] Last Admin: 07/20/18 08:08 Dose: 40 meq - Labs Labs: 07/20/18 06:09 07/20/18 06:07 Attending/Attestation - Attestation I have personally seen and examined this patient.: Yes I have fully participated in the care of the patient.: Yes I have reviewed all pertinent clinical information, including history, physical exam and plan: Yes Notes (Text): Pt was seen and examined at bedside Agree with above note and assessment Pt is improving clinically Had BM last night Advance diet to full liquid c.w current mx Plan d.w pt in detail
--- NOTE | 2018-07-18 08:18 | CP.PCM.PN ---
Subjective - Date & Time of Evaluation Date of Evaluation: 07/18/18 Time of Evaluation: 08:16 - Subjective Subjective: Patient feeling better. No acute events overnight, tolerated bi-pap Objective - Vital Signs/Intake and Output Vital Signs (last 24 hours): Temp Pulse Resp BP Pulse Ox 97.9 F 84 28 H 139/77 100 07/18/18 06:00 07/18/18 08:00 07/18/18 08:09 07/18/18 06:00 07/18/18 08:00 Intake and Output: 07/18/18 07/18/18 06:59 18:59 Intake Total 380 Output Total 820 Balance -440 - Medications Medications: Current Medications Albuterol/Ipratropium (Duoneb 3 Mg/0.5 Mg (3 Ml) Ud) 3 ml INH RQ4 [facility] Last Admin: 07/18/18 07:47 Dose: 3 ml Amlodipine Besylate (Norvasc) 5 mg PO DAILY [facility] Last Admin: 07/17/18 09:27 Dose: 5 mg Docusate Sodium (Colace) 100 mg PO BID [facility] Last Admin: 07/17/18 18:45 Dose: 100 mg Famotidine (Pepcid) 20 mg IVP DAILY [facility] Last Admin: 07/17/18 09:28 Dose: 20 mg Fluoxetine HCl (Prozac) 20 mg PO DAILY [facility] Last Admin: 07/17/18 18:46 Dose: 20 mg Heparin Sodium (Porcine) (Heparin) 5,000 units SC Q12H [facility] Hydromorphone HCl (Dilaudid) 0.25 mg IVP Q3H PRN PRN Reason: Pain, severe (8-10) Last Admin: 07/18/18 03:03 Dose: 0.25 mg Piperacillin Sod/Tazobactam Sod (Zosyn 3.375 Gm Iv Premix) 3.375 gm in 50 mls @ 100 mls/hr IVPB Q6H [facility]; Protocol Last Admin: 07/18/18 05:00 Dose: 100 mls/hr BUPIVACAINE 0.125%/0.9% NACL (Bupivacaine-Ns 0.125% On-Q [employer]itation Worker [employer]osing Machinery) 600 mls @ 7 mls/hr IJ ONCE ONE Stop: 07/21/18 01:42 Last Admin: 07/17/18 22:54 Dose: 7 mls/hr Doxycycline Hyclate 100 mg/ (Sodium Chloride) 100 mls @ 100 mls/hr IVPB Q12H [facility]; Protocol Lidocaine (Lidoderm) 1 ea TD DAILY [facility] Last Admin: 07/17/18 09:28 Dose: 1 ea Meclizine HCl (Antivert) 12.5 mg PO Q6H [facility] Last Admin: 07/18/18 03:08 Dose: 12.5 mg Methylprednisolone (Solu-Medrol) 40 mg IVP Q8H [facility] Metoprolol Tartrate (Lopressor) 50 mg PO BID [facility] Last Admin: 07/17/18 18:46 Dose: 50 mg Potassium Chloride (K-Dur 20 Meq Er Tab) 40 meq PO BRK [facility] - Labs Labs: 07/18/18 06:15 07/18/18 06:15 - Head Exam Head Exam: ATRAUMATIC, NORMAL INSPECTION, NORMOCEPHALIC - Eye Exam Eye Exam: EOMI - ENT Exam ENT Exam: Mucous Membranes Moist - Respiratory Exam Respiratory Exam: Clear to Ausculation Bilateral, Rales, NORMAL BREATHING PATTERN. absent: Rhonchi, Wheezes, Respiratory Distress, Stridor - Cardiovascular Exam Cardiovascular Exam: REGULAR RHYTHM, +S1, +S2 - Neurological Exam Neurological Exam: Alert, Awake, Oriented x3 - Skin Skin Exam: Normal Color, Warm Assessment and Plan - Assessment and Plan (Free Text) Assessment: 58F s/p laparotomy, extensive LARISSA, colon & rectal resection, w/ primary anastomosis, removal of rectal foreign body, myomectomy, cholecystectomy, POD#5 -Hypoxic respiratory failure: suspect ILD as pulmonary congestion resolved, obtain CT chest, start solumedrol IV, tolerating high flow, bi-pap qhs -patient empirically on abx, d/c vanco (cr increase to 1.3), check vanco level, start doxy, continue zosyn -oral diet if surgery team agrees, patient passes flatus -continue dvt/pud ppx -OOB to chair -incentive -Patient provides a history of being exposed to [employer]. -pre-test probability of PE low given no tachycardia and CXR findings suggestive of ILD
[2018-07-18 08:45] LABS: BANDS 1 % (0-2); LYMPHOCYTE 8 % (20-40); MONOCYTE 5 % (0-10); NEUTROPHIL 86 % (50-75); PLATELET ESTIMATE NORMAL (NORMAL); TOTAL CELLS COUNTED 100
[2018-07-18] MEDS: MethylPREDNISolone 40 mg Vial IVP SCH ×2 (09:00→17:10)
[2018-07-18] MEDS: Potassium Chloride 20 mEq ER Tab PO SCH (09:00)
[2018-07-18] MEDS: Lidocaine 5% Patch TD SCH (09:00)
--- NOTE | 2018-07-18 14:17 | CT ---
Date of service: 07/18/2018 PROCEDURE: CT Chest without contrast HISTORY: r/o ILD COMPARISON: None available. TECHNIQUE: Contiguous axial images were obtained through the chest without intravenous contrast enhancement. Sagittal and coronal reconstructions were performed. Radiation dose: Total exam DLP = 155.8 mGy-cm. This CT exam was performed using one or more of the following dose reduction techniques: Automated exposure control, adjustment of the mA and/or kV according to patient size, and/or use of iterative reconstruction technique. FINDINGS: LUNGS: There are diffuse ground-glass opacities seen in the lungs more prominent at the upper lobes. There are reticular opacities and prominent interstitial septal thickening also noted. There is diffuse bronchiectasis noted in the lungs also more prominent in the upper lobes. No evidence of honeycomb changes. Findings may represent nonspecific interstitial pneumonia versus desquamative interstitial pneumonia MEDIASTINUM: Unremarkable thoracic aorta. No aneurysm. Normal sized heart. Main pulmonary artery unremarkable. No vascular congestion. No lymphadenopathy. Foci of atherosclerotic calcification are noted. PLEURA: No pleural fluid. No pneumothorax. BONES: No fracture. No destructive lesion. UPPER ABDOMEN: No acute pathology noted in the upper abdomen OTHER FINDINGS: None. IMPRESSION: Diffuse ground-glass opacity associated with interstitial septal thickening and reticular opacities and also associated with bronchiectasis. The differential consideration includes nonspecific interstitial pneumonia versusdesquamative interstitial pneumonia.
[2018-07-18] MEDS ORDERED: HYDROmorphone 0.5 mg/0.5 ml ISec IVP PRN (14:56)
--- NOTE | 2018-07-18 17:10 | CP.PCM.CON ---
History of Present Illness - History of Present Illness History of Present Illness: Reason for consultation: Respiratory insufficiency/hypoxemia Patient is a 58yo F with PMH HTN, colostomy, depression who presented to ED for colostomy reversal. S/p Laparotomy, extensive lysis of adhesions, colon resection, rectal resection, primary anastomosis of colon and rectum, rectal foreign body removal, myomectomy, cholecystectomy. Patient was transferred to intensive care unit for hypoxia asd Was placed on BiPAP. chest x-ray consistent with bilateral infiltrate. 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 Patient states that she is breathing better and is on high flow oxygen now. Review of Systems - Review of Systems All systems: reviewed and no additional remarkable complaints except (Shortness of breath and cough) Past Patient History - Past Medical History & Family History Past Medical History?: Yes - Past Social History Smoking Status: Light Smoker < 10 Cigarettes Daily - CARDIAC Hx Hypertension: Yes - PULMONARY Hx Respiratory Disorders: No Hx Asthma: No Hx Bronchitis: No Hx Chronic Obstructive Pulmonary Disease (COPD): No Hx Emphysema: No Hx Sleep Apnea: No - NEUROLOGICAL Hx Neurological Disorder: No Hx Alzheimer's Disease: No HX Cerebrovascular Accident: No Hx Dizziness: Yes (hx subdural hematoma 1 year ago) Hx Seizures: No Hx Transient Ischemic Attacks (TIA): No - HEENT Hx HEENT Problems: No - RENAL Hx Chronic Kidney Disease: No - ENDOCRINE/METABOLIC Hx Endocrine Disorders: No Other/Comment: hypokalemia - HEMATOLOGICAL/ONCOLOGICAL Hx Blood Disorders: No Hx Anemia: Yes Hx Blood Transfusions: Yes Hx Blood Transfusion Reaction: No Hx Cancer: No Hx Chemotherapy: No - INTEGUMENTARY Hx Dermatological Problems: No - MUSCULOSKELETAL/RHEUMATOLOGICAL Hx Musculoskeletal Disorders: No Hx Arthritis: No Hx Back Pain: No Hx Falls: Yes (2017; NEEDED SURGERY FOR CRANIAL HEMATOMA) Hx Fractures: No Hx Herniated Disk: No - GASTROINTESTINAL Hx Gastrointestinal Disorders: Yes Hx Bowel Surgery: Yes (COLON RESECTION WITH COLOSTOMY) Hx Colostomy: Yes Hx Diverticulitis: Yes (2018) Hx Gastroesophageal Reflux: Yes - GENITOURINARY/GYNECOLOGICAL Hx Genitourinary Disorders: No - PSYCHIATRIC Hx Psychophysiologic Disorder: Yes Hx Depression: Yes Hx Substance Use: No - SURGICAL HISTORY Hx Surgeries: Yes Hx Section: Yes Hx Tonsillectomy: Yes Other/Comment: Lt forearm. brain surgery. Colon surgery 06/2017, with colosotmy - ANESTHESIA Hx Anesthesia: Yes Hx Anesthesia Reactions: No Hx Malignant Hyperthermia: No Has any member of the family had a problem w/ anesthesia?: No Meds Allergies/Adverse Reactions: Allergies Allergy/AdvReac Type Severity Reaction Status Date / Time No Known Allergies Allergy Verified 05/19/18 07:00 - Medications Medications: Current Medications Albuterol/Ipratropium (Duoneb 3 Mg/0.5 Mg (3 Ml) Ud) 3 ml INH RQ4 [facility] Last Admin: 07/18/18 15:47 Dose: 3 ml Amlodipine Besylate (Norvasc) 5 mg PO DAILY [facility] Last Admin: 07/18/18 09:00 Dose: 5 mg Docusate Sodium (Colace) 100 mg PO BID [facility] Last Admin: 07/18/18 09:00 Dose: 100 mg Famotidine (Pepcid) 20 mg IVP DAILY [facility] Last Admin: 07/18/18 09:00 Dose: 20 mg Fluoxetine HCl (Prozac) 20 mg PO DAILY [facility] Last Admin: 07/18/18 09:00 Dose: 20 mg Heparin Sodium (Porcine) (Heparin) 5,000 units SC Q12H [facility] Last Admin: 07/18/18 09:00 Dose: 5,000 units Hydromorphone HCl (Dilaudid) 0.25 mg IVP Q8H PRN PRN Reason: Pain, severe (8-10) Piperacillin Sod/Tazobactam Sod (Zosyn 3.375 Gm Iv Premix) 3.375 gm in 50 mls @ 100 mls/hr IVPB Q6H [facility]; Protocol Last Admin: 07/18/18 05:00 Dose: 100 mls/hr BUPIVACAINE 0.125%/0.9% NACL (Bupivacaine-Ns 0.125% [employer]) 600 mls @ 7 mls/hr IJ ONCE ONE Stop: 07/21/18 01:42 Last Admin: 07/17/18 22:54 Dose: 7 mls/hr Doxycycline Hyclate 100 mg/ (Sodium Chloride) 100 mls @ 100 mls/hr IVPB Q12H [facility]; Protocol Lidocaine (Lidoderm) 1 ea TD DAILY [facility] Last Admin: 07/18/18 09:00 Dose: 1 ea Methylprednisolone (Solu-Medrol) 40 mg IVP Q8H [facility] Last Admin: 07/18/18 09:00 Dose: 40 mg Metoprolol Tartrate (Lopressor) 50 mg PO BID [facility] Last Admin: 07/18/18 09:00 Dose: 50 mg Potassium Chloride (K-Dur 20 Meq Er Tab) 40 meq PO BRK [facility] Last Admin: 07/18/18 09:00 Dose: 40 meq Physical Exam - Head Exam Head Exam: ATRAUMATIC, NORMOCEPHALIC - ENT Exam ENT Exam: Mucous Membranes Moist - Neck Exam Neck exam: Positive for: Normal Inspection - Respiratory Exam Respiratory Exam: Rales, Rhonchi - Cardiovascular Exam Cardiovascular Exam: REGULAR RHYTHM - GI/Abdominal Exam GI & Abdominal Exam: Normal Bowel Sounds, Soft - Extremities Exam Extremities exam: Positive for: normal inspection - Neurological Exam Neurological exam: Alert Results - Vital Signs Recent Vital Signs: Last Vital Signs Temp 97.9 F 07/18/18 06:00 Pulse 76 07/18/18 15:00 Resp 29 H 07/18/18 15:50 BP 121/86 07/18/18 14:32 Pulse Ox 90 L 07/18/18 15:00 - Labs Result Diagrams: 07/18/18 06:15 07/18/18 06:15 Labs: Laboratory Results - last 24 hr 07/17/18 07/18/18 07/18/18 20:43 06:15 06:15 WBC 15.3 H RBC 3.40 L Hgb 10.1 L Hct 29.9 L MCV 87.8 MCH 29.6 MCHC 33.7 RDW 12.7 Plt Count 331 MPV 8.8 Neut % (Auto) 83.8 H Lymph % (Auto) 8.5 L Stevens % (Auto) 7.2 Eos % (Auto) 0.2 Baso % (Auto) 0.3 Neut # (Auto) 12.9 H Lymph # (Auto) 1.3 Stevens # (Auto) 1.1 H Eos # (Auto) 0.0 Baso # (Auto) 0.0 Neutrophils % (Manual) 86 H Band Neutrophils % 1 Lymphocytes % (Manual) 8 L Monocytes % (Manual) 5 Platelet Estimate Normal RBC Morphology Normal Sodium 141 143 Potassium 3.4 L 3.8 Chloride 101 103 Carbon Dioxide 30 28 Anion Gap 14 16 BUN 25 H 32 H Creatinine 0.9 1.3 H Est GFR ( Amer) > 60 51 Est GFR (Non-Af Amer) > 60 42 Random Glucose 111 H 102 Calcium 9.4 9.5 Phosphorus 4.7 H Magnesium 2.0 Total Bilirubin 1.2 AST 80 H D ALT 85 H D Alkaline Phosphatase 511 H D Lactate Dehydrogenase Total Protein 7.5 Albumin 3.9 Globulin 3.6 Albumin/Globulin Ratio 1.1 Vancomycin Trough 07/18/18 07/18/18 08:41 15:44 WBC RBC Hgb Hct MCV MCH MCHC RDW Plt Count MPV Neut % (Auto) Lymph % (Auto) Stevens % (Auto) Eos % (Auto) Baso % (Auto) Neut # (Auto) Lymph # (Auto) Stevens # (Auto) Eos # (Auto) Baso # (Auto) Neutrophils % (Manual) Band Neutrophils % Lymphocytes % (Manual) Monocytes % (Manual) Platelet Estimate RBC Morphology Sodium Potassium Chloride Carbon Dioxide Anion Gap BUN Creatinine Est GFR ( Amer) Est GFR (Non-Af Amer) Random Glucose Calcium Phosphorus Magnesium Total Bilirubin AST ALT Alkaline Phosphatase Lactate Dehydrogenase 1345 H Total Protein Albumin Globulin Albumin/Globulin Ratio Vancomycin Trough 23.1 H Assessment & Plan (1) Respiratory insufficiency/failure Status: Acute Comment: 58-year-old female transferred to intensive care unit post hypoxemia. CAT scan of the chest consistent with institution infiltrate. Patient with history of smoking respiratory bronchiolitis interstitial lung disease needs to be ruled out. Continue IV steroids. Continue antibiotics and follow-up procalcitonin level. Antinuclear antibodies. Legionella and mycoplasma titer. Continue on high flow oxygen
[2018-07-18] MEDS: Atovaquone 750 mg/5 ml Susp UD PO SCH (18:26)
--- NOTE | 2018-07-18 20:57 | CP.PCM.PN ---
Subjective - Date & Time of Evaluation Date of Evaluation: 07/18/18 Time of Evaluation: 10:00 - Subjective Subjective: patient examined today no nausea no vomiting no dizziness no fever no diarrhea no shortness of breath Objective - Vital Signs/Intake and Output Vital Signs (last 24 hours): Temp Pulse Resp BP Pulse Ox 98.0 F 78 36 H 158/93 H 100 07/18/18 16:00 07/18/18 19:36 07/18/18 18:00 07/18/18 17:32 07/18/18 18:00 Intake and Output: 07/18/18 07/19/18 18:59 06:59 Intake Total 920 Output Total 412 Balance 508 - Medications Medications: Current Medications Albuterol/Ipratropium (Duoneb 3 Mg/0.5 Mg (3 Ml) Ud) 3 ml INH RQ4 [facility] Last Admin: 07/18/18 19:36 Dose: 3 ml Amlodipine Besylate (Norvasc) 5 mg PO DAILY [facility] Last Admin: 07/18/18 09:00 Dose: 5 mg Atovaquone (Mepron) 750 mg PO BID [facility]; Protocol Last Admin: 07/18/18 18:26 Dose: 750 mg Docusate Sodium (Colace) 100 mg PO BID [facility] Last Admin: 07/18/18 18:23 Dose: 100 mg Famotidine (Pepcid) 20 mg IVP DAILY [facility] Last Admin: 07/18/18 09:00 Dose: 20 mg Fluoxetine HCl (Prozac) 20 mg PO DAILY [facility] Last Admin: 07/18/18 09:00 Dose: 20 mg Heparin Sodium (Porcine) (Heparin) 5,000 units SC Q12H [facility] Last Admin: 07/18/18 09:00 Dose: 5,000 units Hydromorphone HCl (Dilaudid) 0.25 mg IVP Q8H PRN PRN Reason: Pain, severe (8-10) Piperacillin Sod/Tazobactam Sod (Zosyn 3.375 Gm Iv Premix) 3.375 gm in 50 mls @ 100 mls/hr IVPB Q6H [facility]; Protocol Last Admin: 07/18/18 16:00 Dose: 100 mls/hr BUPIVACAINE 0.125%/0.9% NACL (Bupivacaine-Ns 0.125% On-Q [employer] Of Instruction) 600 mls @ 7 mls/hr IJ ONCE ONE Stop: 07/21/18 01:42 Last Admin: 07/17/18 22:54 Dose: 7 mls/hr Doxycycline Hyclate 100 mg/ (Sodium Chloride) 100 mls @ 100 mls/hr IVPB Q12H [facility]; Protocol Last Admin: 07/18/18 10:00 Dose: 100 mls/hr Lidocaine (Lidoderm) 1 ea TD DAILY [facility] Last Admin: 07/18/18 09:00 Dose: 1 ea Methylprednisolone (Solu-Medrol) 40 mg IVP Q8H [facility] Last Admin: 07/18/18 17:10 Dose: 40 mg Metoprolol Tartrate (Lopressor) 50 mg PO BID [facility] Last Admin: 07/18/18 18:23 Dose: 50 mg Potassium Chloride (K-Dur 20 Meq Er Tab) 40 meq PO BRK [facility] Last Admin: 07/18/18 09:00 Dose: 40 meq - Labs Labs: 07/18/18 06:15 07/18/18 06:15 - Constitutional Appears: Well - Head Exam Head Exam: ATRAUMATIC, NORMAL INSPECTION, NORMOCEPHALIC - Eye Exam Eye Exam: EOMI, Normal appearance, PERRL Pupil Exam: NORMAL ACCOMODATION, PERRL - ENT Exam ENT Exam: Mucous Membranes Moist, Normal Exam - Neck Exam Neck Exam: Full ROM, Normal Inspection. absent: Lymphadenopathy - Respiratory Exam Respiratory Exam: Decreased Breath Sounds - Cardiovascular Exam Cardiovascular Exam: REGULAR RHYTHM, +S1, +S2 - GI/Abdominal Exam GI & Abdominal Exam: Soft, Diminished Bowel Sounds - Rectal Exam Rectal Exam: Deferred - Neurological Exam Neurological Exam: Oriented x3 Assessment and Plan - Assessment and Plan (Free Text) Plan: plan discussed with patient moderate complexity of care medications reviewed vitals reviewed labs reviewed bupivacane-ns colace duoneb lidoderm lovenox morphine prozac potassium chl toradol vancomycin zofran inj zosyn
--- NOTE | 2018-07-18 22:31 | RAD ---
Date of service: 07/18/2018 HISTORY: hypoxia COMPARISON: 07/18/2018 TECHNIQUE: view obtained. FINDINGS: LUNGS: Diffuse moderate pulmonary vascular congestion is noted. PLEURA: No significant pleural effusion identified, no pneumothorax apparent. CARDIOVASCULAR: No aortic atherosclerotic calcification present. Normal cardiac size. No pulmonary vascular congestion. OSSEOUS STRUCTURES: No significant abnormalities. VISUALIZED UPPER ABDOMEN: Normal. OTHER FINDINGS: None. IMPRESSION: Moderate pulmonary vascular congestion
[2018-07-18] MEDS ORDERED: HYDROmorphone 1 mg/ml ISec IVP STA (23:33)
[2018-07-19] MEDS: Albuterol-Ipratrop 3 mg / 0.5 (3 ml) UD INH SCH ×6 (00:04→19:06)
[2018-07-19] MEDS: MethylPREDNISolone 40 mg Vial IVP SCH ×4 (00:30→23:48)
[2018-07-19] MEDS: Piperacill/Tazo 3.375gm in Dex 3.375 GM/50 ML BAG IVPB SCH ×3 (04:40→17:00)
[2018-07-19] MEDS: HYDROmorphone 0.5 mg/0.5 ml ISec IVP PRN ×2 (05:35→17:50)
[2018-07-19 06:13] LABS: BASO # 0.1 K/uL (0.0-0.2); BASO % 0.6 % (0.0-2.0); HEMOGLOBIN 9.8 g/dL (11.0-16.0); LYMPH # 1.2 K/uL (1.0-4.3); LYMPH % 8.8 % (20.0-40.0); MEAN CELL VOLUME 88.5 fL (81.0-99.0); MEAN CORPUSCULAR HGB CONC 33.9 g/dL (33.0-37.0); MEAN PLATELET VOLUME 8.8 fL (7.2-11.7); MONO # 0.8 K/uL (0.0-0.8); MONO % 5.4 % (0.0-10.0); NEUT % 85.2 % (50.0-75.0); PLATELET COUNT 332 K/uL (130-400); RBC 3.26 Mil/uL (3.80-5.20); RED CELL DISTRIBUTION WIDTH 13.3 % (11.5-14.5)
[2018-07-19 06:30] LABS: ALB/GLOB RATIO 1.2 (1.0-2.1); ALBUMIN 3.9 g/dL (3.5-5.0); ALT/SGPT 65 U/L (9-52); AST/SGOT 51 U/L (14-36); BLOOD UREA NITROGEN 35 mg/dL (7-17); GFR NON-AFRICAN AMERICAN 51
--- NOTE | 2018-07-19 07:54 | CP.PCM.PN ---
<MerchantStanislaw - Last Filed: 07/19/18 07:51> Subjective - Date & Time of Evaluation Date of Evaluation: 07/19/18 Time of Evaluation: 07:51 - Subjective Subjective: Surgery Progress Note- Dr. Gavin AAOx2-3, person and time, easily re-orients to place. On BiPAP overnight saturating 97%. tolerating CLD, states flatus, however no bowel movement. Fabrice in place 8 serosang/24 hrs. Dressings C/D/I no strikethrough. Denies fevers, chills, nausea, vomiting. + OOB in oleg Objective - Vital Signs/Intake and Output Vital Signs (last 24 hours): Temp Pulse Resp BP Pulse Ox 98.0 F 84 31 H 142/88 100 07/19/18 04:00 07/19/18 07:33 07/19/18 07:00 07/19/18 06:31 07/19/18 07:33 Intake and Output: 07/19/18 07/19/18 06:59 18:59 Intake Total 440 0 Output Total 3 0 Balance 437 0 - Medications Medications: Current Medications Albuterol/Ipratropium (Duoneb 3 Mg/0.5 Mg (3 Ml) Ud) 3 ml INH RQ4 [facility] Last Admin: 07/19/18 07:17 Dose: 3 ml Amlodipine Besylate (Norvasc) 5 mg PO DAILY [facility] Last Admin: 07/18/18 09:00 Dose: 5 mg Atovaquone (Mepron) 750 mg PO BID [facility]; Protocol Last Admin: 07/18/18 18:26 Dose: 750 mg Docusate Sodium (Colace) 100 mg PO BID [facility] Last Admin: 07/18/18 18:23 Dose: 100 mg Famotidine (Pepcid) 20 mg IVP DAILY [facility] Last Admin: 07/18/18 09:00 Dose: 20 mg Fluoxetine HCl (Prozac) 20 mg PO DAILY [facility] Last Admin: 07/18/18 09:00 Dose: 20 mg Heparin Sodium (Porcine) (Heparin) 5,000 units SC Q12H [facility] Last Admin: 07/18/18 20:45 Dose: 5,000 units Hydromorphone HCl (Dilaudid) 0.5 mg IVP Q8H PRN PRN Reason: Pain, severe (8-10) Last Admin: 07/19/18 05:35 Dose: 0.5 mg Piperacillin Sod/Tazobactam Sod (Zosyn 3.375 Gm Iv Premix) 3.375 gm in 50 mls @ 100 mls/hr IVPB Q6H [facility]; Protocol Last Admin: 07/19/18 04:40 Dose: 100 mls/hr BUPIVACAINE 0.125%/0.9% NACL (Bupivacaine-Ns 0.125% On-Q [employer] Project [employer]) 600 mls @ 7 mls/hr IJ ONCE ONE Stop: 07/21/18 01:42 Last Admin: 07/17/18 22:54 Dose: 7 mls/hr Doxycycline Hyclate 100 mg/ (Sodium Chloride) 100 mls @ 100 mls/hr IVPB Q12H [facility]; Protocol Last Admin: 07/18/18 22:50 Dose: 100 mls/hr Lidocaine (Lidoderm) 1 ea TD DAILY [facility] Last Admin: 07/18/18 09:00 Dose: 1 ea Methylprednisolone (Solu-Medrol) 40 mg IVP Q8H [facility] Last Admin: 07/19/18 00:30 Dose: 40 mg Metoprolol Tartrate (Lopressor) 50 mg PO BID [facility] Last Admin: 07/18/18 18:23 Dose: 50 mg Potassium Chloride (K-Dur 20 Meq Er Tab) 40 meq PO BRK [facility] Last Admin: 07/18/18 09:00 Dose: 40 meq - Labs Labs: 07/19/18 06:07 07/19/18 06:07 - Constitutional Appears: Non-toxic, No Acute Distress - Eye Exam Eye Exam: EOMI. absent: Scleral icterus - ENT Exam ENT Exam: Mucous Membranes Moist - Respiratory Exam Respiratory Exam: Wheezes, NORMAL BREATHING PATTERN. absent: Accessory Muscle Use, Respiratory Distress - Cardiovascular Exam Cardiovascular Exam: REGULAR RHYTHM. absent: Bradycardia, Tachycardia - GI/Abdominal Exam GI & Abdominal Exam: Soft, Tenderness (some tenderness around midline incision). absent: Distended, Firm, Guarding, Rigid - Extremities Exam Extremities Exam: Normal Inspection. absent: Calf Tenderness - Neurological Exam Neurological Exam: Alert, Awake, Oriented x3 - Psychiatric Exam Psychiatric exam: Normal Affect - Skin Skin Exam: Intact, Warm Assessment and Plan - Assessment and Plan (Free Text) Assessment: 58F s/p laparotomy, extensive LARISSA, colon & rectal resection, w/ primary anastomosis, myomectomy, cholecystectomy, POD#6 Plan: advance to FLD pain control PRN f/u Pulm, all recs appreciated Monitor for bowel function monitor drain output anti-emetic PRN PT OOB/IS/ambulation further recommendations as per Dr. Romaine Gurrola PGY2 <Dieter Gavin - Last Filed: 07/20/18 20:04> Objective - Vital Signs/Intake and Output Vital Signs (last 24 hours): Temp Pulse Resp BP Pulse Ox 97.4 F L 62 26 H 143/66 99 07/20/18 16:00 07/20/18 19:31 07/20/18 19:31 07/20/18 19:31 07/20/18 19:31 Intake and Output: 07/20/18 07/21/18 18:59 06:59 Intake Total 1090 240 Output Total 600 Balance 490 240 - Medications Medications: Current Medications Albuterol/Ipratropium (Duoneb 3 Mg/0.5 Mg (3 Ml) Ud) 3 ml INH RQ4 [facility] Last Admin: 07/20/18 19:31 Dose: 3 ml Amlodipine Besylate (Norvasc) 5 mg PO DAILY [facility] Last Admin: 07/20/18 09:57 Dose: 5 mg Atovaquone (Mepron) 750 mg PO BID [facility]; Protocol Last Admin: 07/20/18 18:18 Dose: 750 mg Docusate Sodium (Colace) 100 mg PO BID [facility] Last Admin: 07/20/18 18:19 Dose: Not Given Famotidine (Pepcid) 20 mg IVP DAILY [facility] Last Admin: 07/20/18 09:56 Dose: 20 mg Fluoxetine HCl (Prozac) 20 mg PO DAILY [facility] Last Admin: 07/20/18 09:56 Dose: 20 mg Heparin Sodium (Porcine) (Heparin) 5,000 units SC Q12H [facility] Last Admin: 07/20/18 08:08 Dose: 5,000 units Hydromorphone HCl (Dilaudid) 0.5 mg IVP Q8H PRN PRN Reason: Pain, severe (8-10) Last Admin: 07/20/18 14:27 Dose: 0.5 mg BUPIVACAINE 0.125%/0.9% NACL (Bupivacaine-Ns 0.125% On-Q [employer]) 600 mls @ 7 mls/hr IJ ONCE ONE Stop: 07/21/18 01:42 Last Admin: 07/17/18 22:54 Dose: 7 mls/hr Doxycycline Hyclate 100 mg/ (Sodium Chloride) 100 mls @ 100 mls/hr IVPB Q12H [facility]; Protocol Last Admin: 07/20/18 09:57 Dose: 100 mls/hr Lidocaine (Lidoderm) 1 ea TD DAILY [facility] Last Admin: 07/20/18 09:57 Dose: 1 ea Methylprednisolone (Solu-Medrol) 40 mg IVP Q12 [facility] Last Admin: 07/20/18 09:56 Dose: 40 mg Metoprolol Tartrate (Lopressor) 50 mg PO BID [facility] Last Admin: 07/20/18 18:18 Dose: Not Given Oxycodone HCl (Oxycodone Immediate Release Tab) 5 mg PO Q6 PRN PRN Reason: Pain, moderate (4-7) Potassium Chloride (K-Dur 20 Meq Er Tab) 40 meq PO BRK [facility] Last Admin: 07/20/18 08:08 Dose: 40 meq - Labs Labs: 07/20/18 06:09 07/20/18 06:07 Attending/Attestation - Attestation I have fully participated in the care of the patient.: Yes I have reviewed all pertinent clinical information, including history, physical exam and plan: Yes Notes (Text): Pt is clinically improving c.w current mx as per ICU team OOB to walk Advance diet to soft diet Plan d.w primary team.
[2018-07-19 08:36] LABS: BANDS 2 % (0-2); TOTAL CELLS COUNTED 100
[2018-07-19 08:37] LABS: LYMPHOCYTE 9 % (20-40); MONOCYTE 6 % (0-10); NEUTROPHIL 83 % (50-75); PLATELET ESTIMATE NORMAL (NORMAL)
[2018-07-19] MEDS: Lidocaine 5% Patch TD SCH (09:00)
[2018-07-19] MEDS: Potassium Chloride 20 mEq ER Tab PO SCH (09:00)
[2018-07-19] MEDS: Atovaquone 750 mg/5 ml Susp UD PO SCH ×2 (09:00→17:38)
--- NOTE | 2018-07-19 10:17 | CP.PCM.PN ---
Subjective - Date & Time of Evaluation Date of Evaluation: 07/19/18 Time of Evaluation: 10:14 - Subjective Subjective: Patient given dilaudid overnight, drowsy in AM, breathing stable, not delirious, knows she is in hospital Objective - Vital Signs/Intake and Output Vital Signs (last 24 hours): Temp Pulse Resp BP Pulse Ox 98.0 F 84 31 H 142/88 100 07/19/18 04:00 07/19/18 07:33 07/19/18 07:00 07/19/18 06:31 07/19/18 07:33 Intake and Output: 07/19/18 07/19/18 06:59 18:59 Intake Total 440 0 Output Total 3 0 Balance 437 0 - Medications Medications: Current Medications Albuterol/Ipratropium (Duoneb 3 Mg/0.5 Mg (3 Ml) Ud) 3 ml INH RQ4 [facility] Last Admin: 07/19/18 07:17 Dose: 3 ml Amlodipine Besylate (Norvasc) 5 mg PO DAILY [facility] Last Admin: 07/19/18 09:00 Dose: 5 mg Atovaquone (Mepron) 750 mg PO BID [facility]; Protocol Last Admin: 07/19/18 09:00 Dose: 750 mg Docusate Sodium (Colace) 100 mg PO BID [facility] Last Admin: 07/19/18 09:00 Dose: 100 mg Famotidine (Pepcid) 20 mg IVP DAILY [facility] Last Admin: 07/19/18 09:00 Dose: 20 mg Fluoxetine HCl (Prozac) 20 mg PO DAILY [facility] Last Admin: 07/19/18 09:00 Dose: 20 mg Heparin Sodium (Porcine) (Heparin) 5,000 units SC Q12H [facility] Last Admin: 07/19/18 09:00 Dose: 5,000 units Hydromorphone HCl (Dilaudid) 0.5 mg IVP Q8H PRN PRN Reason: Pain, severe (8-10) Last Admin: 07/19/18 05:35 Dose: 0.5 mg Piperacillin Sod/Tazobactam Sod (Zosyn 3.375 Gm Iv Premix) 3.375 gm in 50 mls @ 100 mls/hr IVPB Q6H [facility]; Protocol Last Admin: 07/19/18 04:40 Dose: 100 mls/hr BUPIVACAINE 0.125%/0.9% NACL (Bupivacaine-Ns 0.125% On-Q [employer]) 600 mls @ 7 mls/hr IJ ONCE ONE Stop: 07/21/18 01:42 Last Admin: 07/17/18 22:54 Dose: 7 mls/hr Doxycycline Hyclate 100 mg/ (Sodium Chloride) 100 mls @ 100 mls/hr IVPB Q12H [facility]; Protocol Last Admin: 07/18/18 22:50 Dose: 100 mls/hr Lidocaine (Lidoderm) 1 ea TD DAILY [facility] Last Admin: 07/19/18 09:00 Dose: 1 ea Methylprednisolone (Solu-Medrol) 40 mg IVP Q8H [facility] Last Admin: 07/19/18 09:00 Dose: 40 mg Metoprolol Tartrate (Lopressor) 50 mg PO BID [facility] Last Admin: 07/19/18 09:00 Dose: 50 mg Potassium Chloride (K-Dur 20 Meq Er Tab) 40 meq PO BRK [facility] Last Admin: 07/19/18 09:00 Dose: Not Given - Labs Labs: 07/19/18 06:07 07/19/18 06:07 - Constitutional Appears: Non-toxic - Head Exam Head Exam: ATRAUMATIC, NORMAL INSPECTION - ENT Exam ENT Exam: Mucous Membranes Moist - Neck Exam Neck Exam: Full ROM - Respiratory Exam Respiratory Exam: Rales, NORMAL BREATHING PATTERN. absent: Decreased Breath Sounds, Respiratory Distress, Stridor - Cardiovascular Exam Cardiovascular Exam: REGULAR RHYTHM, +S1, +S2 - GI/Abdominal Exam GI & Abdominal Exam: Soft, Normal Bowel Sounds - Back Exam Back Exam: NORMAL INSPECTION - Neurological Exam Neurological Exam: Alert, Awake, Oriented x3 Neuro motor strength exam: Left Upper Extremity: 5, Right Upper Extremity: 5, Left Lower Extremity: 5, Right Lower Extremity: 5 - Skin Skin Exam: Normal Color, Warm Assessment and Plan - Assessment and Plan (Free Text) Assessment: 58F s/p laparotomy, extensive LARISSA, colon & rectal resection, w/ primary anastomosis, removal of rectal foreign body, myomectomy, cholecystectomy, POD#6 -Hypoxic respiratory failure: suspect ILD continue treatment as per pulmonary, groundglass opacity, high LDH, HIV pending, empirially on mepron -patient empirically on abx, complete abx regimen, de-escalate as per cultures -oral diet tolerates -continue dvt/pud ppx -OOB to chair -incentive -Patient remains hemodynamically stable HIV/CD4 pending
--- NOTE | 2018-07-19 11:49 | CP.PCM.PN ---
Subjective - Date & Time of Evaluation Date of Evaluation: 07/19/18 Time of Evaluation: 11:48 - Subjective Subjective: Pulmonary Follow Up, Covering Dr. Dewey The patient was Seen/interviewed and examined by me at the bedside during ICU round, Medical records reviewed and Management issues were discussed and formulated with the house staff. Events reviewed. Objective - Vital Signs/Intake and Output Vital Signs (last 24 hours): Temp Pulse Resp BP Pulse Ox 98.0 F 84 31 H 142/88 100 07/19/18 04:00 07/19/18 07:33 07/19/18 07:00 07/19/18 06:31 07/19/18 07:33 Intake and Output: 07/19/18 07/19/18 06:59 18:59 Intake Total 440 0 Output Total 3 0 Balance 437 0 - Medications Medications: Current Medications Albuterol/Ipratropium (Duoneb 3 Mg/0.5 Mg (3 Ml) Ud) 3 ml INH RQ4 [facility] Last Admin: 07/19/18 11:12 Dose: 3 ml Amlodipine Besylate (Norvasc) 5 mg PO DAILY [facility] Last Admin: 07/19/18 09:00 Dose: 5 mg Atovaquone (Mepron) 750 mg PO BID [facility]; Protocol Last Admin: 07/19/18 09:00 Dose: 750 mg Docusate Sodium (Colace) 100 mg PO BID [facility] Last Admin: 07/19/18 09:00 Dose: 100 mg Famotidine (Pepcid) 20 mg IVP DAILY [facility] Last Admin: 07/19/18 09:00 Dose: 20 mg Fluoxetine HCl (Prozac) 20 mg PO DAILY [facility] Last Admin: 07/19/18 09:00 Dose: 20 mg Heparin Sodium (Porcine) (Heparin) 5,000 units SC Q12H [facility] Last Admin: 07/19/18 09:00 Dose: 5,000 units Hydromorphone HCl (Dilaudid) 0.5 mg IVP Q8H PRN PRN Reason: Pain, severe (8-10) Last Admin: 07/19/18 05:35 Dose: 0.5 mg Piperacillin Sod/Tazobactam Sod (Zosyn 3.375 Gm Iv Premix) 3.375 gm in 50 mls @ 100 mls/hr IVPB Q6H [facility]; Protocol Last Admin: 07/19/18 04:40 Dose: 100 mls/hr BUPIVACAINE 0.125%/0.9% NACL (Bupivacaine-Ns 0.125% On-[employer]) 600 mls @ 7 mls/hr IJ ONCE ONE Stop: 07/21/18 01:42 Last Admin: 07/17/18 22:54 Dose: 7 mls/hr Doxycycline Hyclate 100 mg/ (Sodium Chloride) 100 mls @ 100 mls/hr IVPB Q12H NORA; Protocol Last Admin: 07/18/18 22:50 Dose: 100 mls/hr Lidocaine (Lidoderm) 1 ea TD DAILY NORA Last Admin: 07/19/18 09:00 Dose: 1 ea Methylprednisolone (Solu-Medrol) 40 mg IVP Q8H NORA Last Admin: 07/19/18 09:00 Dose: 40 mg Metoprolol Tartrate (Lopressor) 50 mg PO BID NORA Last Admin: 07/19/18 09:00 Dose: 50 mg Potassium Chloride (K-Dur 20 Meq Er Tab) 40 meq PO BRK NORA Last Admin: 07/19/18 09:00 Dose: Not Given - Labs Labs: 07/19/18 06:07 07/19/18 06:07
--- NOTE | 2018-07-19 17:10 | CP.PCM.PN ---
Subjective - Date & Time of Evaluation Date of Evaluation: 07/19/18 Time of Evaluation: 10:30 - Subjective Subjective: patient seen today no dizziness, no diarrhea, no fever, no vomiting, no nausea no shortness of breath Objective - Vital Signs/Intake and Output Vital Signs (last 24 hours): Temp Pulse Resp BP Pulse Ox 98.0 F 67 36 H 152/86 H 100 07/19/18 04:00 07/19/18 15:49 07/19/18 14:00 07/19/18 13:31 07/19/18 13:31 Intake and Output: 07/19/18 07/19/18 06:59 18:59 Intake Total 440 0 Output Total 3 0 Balance 437 0 - Medications Medications: Current Medications Albuterol/Ipratropium (Duoneb 3 Mg/0.5 Mg (3 Ml) Ud) 3 ml INH RQ4 [facility] Last Admin: 07/19/18 15:49 Dose: 3 ml Amlodipine Besylate (Norvasc) 5 mg PO DAILY [facility] Last Admin: 07/19/18 09:00 Dose: 5 mg Atovaquone (Mepron) 750 mg PO BID [facility]; Protocol Last Admin: 07/19/18 09:00 Dose: 750 mg Docusate Sodium (Colace) 100 mg PO BID [facility] Last Admin: 07/19/18 09:00 Dose: 100 mg Famotidine (Pepcid) 20 mg IVP DAILY [facility] Last Admin: 07/19/18 09:00 Dose: 20 mg Fluoxetine HCl (Prozac) 20 mg PO DAILY [facility] Last Admin: 07/19/18 09:00 Dose: 20 mg Heparin Sodium (Porcine) (Heparin) 5,000 units SC Q12H [facility] Last Admin: 07/19/18 09:00 Dose: 5,000 units Hydromorphone HCl (Dilaudid) 0.5 mg IVP Q8H PRN PRN Reason: Pain, severe (8-10) Last Admin: 07/19/18 05:35 Dose: 0.5 mg Piperacillin Sod/Tazobactam Sod (Zosyn 3.375 Gm Iv Premix) 3.375 gm in 50 mls @ 100 mls/hr IVPB Q6H [facility]; Protocol Last Admin: 07/19/18 04:40 Dose: 100 mls/hr BUPIVACAINE 0.125%/0.9% NACL (Bupivacaine-Ns 0.125% On-Q [employer]) 600 mls @ 7 mls/hr IJ ONCE ONE Stop: 07/21/18 01:42 Last Admin: 07/17/18 22:54 Dose: 7 mls/hr Doxycycline Hyclate 100 mg/ (Sodium Chloride) 100 mls @ 100 mls/hr IVPB Q12H [facility]; Protocol Last Admin: 07/18/18 22:50 Dose: 100 mls/hr Lidocaine (Lidoderm) 1 ea TD DAILY [facility] Last Admin: 07/19/18 09:00 Dose: 1 ea Methylprednisolone (Solu-Medrol) 40 mg IVP Q8H [facility] Last Admin: 07/19/18 09:00 Dose: 40 mg Metoprolol Tartrate (Lopressor) 50 mg PO BID [facility] Last Admin: 07/19/18 09:00 Dose: 50 mg Potassium Chloride (K-Dur 20 Meq Er Tab) 40 meq PO BRK [facility] Last Admin: 07/19/18 09:00 Dose: Not Given - Labs Labs: 07/19/18 06:07 07/19/18 06:07 - Constitutional Appears: Well - Head Exam Head Exam: ATRAUMATIC, NORMAL INSPECTION, NORMOCEPHALIC - Eye Exam Eye Exam: EOMI, Normal appearance, PERRL Pupil Exam: NORMAL ACCOMODATION, PERRL - ENT Exam ENT Exam: Mucous Membranes Moist, Normal Exam - Neck Exam Neck Exam: Full ROM, Normal Inspection. absent: Lymphadenopathy - Respiratory Exam Respiratory Exam: Decreased Breath Sounds - Cardiovascular Exam Cardiovascular Exam: REGULAR RHYTHM, +S1, +S2 - GI/Abdominal Exam GI & Abdominal Exam: Soft, Diminished Bowel Sounds - Rectal Exam Rectal Exam: Deferred - Neurological Exam Neurological Exam: Oriented x3 Assessment and Plan - Assessment and Plan (Free Text) Plan: bupivacane-ns colace duoneb lidoderm lovenox morphine prozac potassium chl toradol vancomycin zofran inj zosyn plan discussed with patient moderate complexity of care medications reviewed vitals reviewed labs reviewed
--- NOTE | 2018-07-19 18:13 | RAD ---
Date of service: 07/18/2018 HISTORY: pulmona effusion COMPARISON: 07/17/2018 TECHNIQUE: 1 view obtained. FINDINGS: LUNGS: Again noted diffuse heterogeneous hazy opacities in the lungs slightly worse in the right lower lobe compared to the prior exam. PLEURA: No significant pleural effusion identified, no pneumothorax apparent. CARDIOVASCULAR: Large aortic atherosclerotic calcification present. Normal cardiac size. No pulmonary vascular congestion. OSSEOUS STRUCTURES: No significant abnormalities. VISUALIZED UPPER ABDOMEN: Normal. OTHER FINDINGS: None. IMPRESSION: Diffuse hazy opacities in the lungs again noted slightly worse compared to the previous exam.
--- NOTE | 2018-07-19 21:37 | PCM.PSYCH ---
Initial Psychiatric Evaluation - Initial Psychiatric Evaluation Type of Admission: Voluntary Legal Status: Capacity Chief Complaint (in patient's own words): "I am fine" History of Present Illness and Precipitating Events: Patient is a 58 year old female, a consult referral for depression and altered mental status. Patient reports a history of depression, and she is currently being treated by her PCP with Prazac 20mg daily. She currently denies any depressive symptoms and denies any suicidal thoughts as well. She denies any past psychiatric hospitalizations, she denies any perceptual disturbances including auditory or visual hallucinations, she also denies any bhavani or hypomania. She reports that her sleep and appetite are good, she denies any alcohol or illicit drug use. No SI/HI at this time of evaluation. PsychHx: Depression - On Prozac prescribed by PCP PMHx: HTN. Colostomy, PSxHx: Cranial hematoma 2016, Colectomy with Colostomy 06/2017, Left forearm FamHx: Denies both mental illness and SHIMA Current Medications: Active Medications Generic Name Dose Route Start Last Admin Trade Name Christy PRN Reason Stop Dose Admin Albuterol/Ipratropium 3 ml 07/15/18 20:00 07/19/18 19:06 Duoneb 3 Mg/0.5 Mg (3 Ml) Ud INH 3 ml RQ4 [facility] Administration Amlodipine Besylate 5 mg 07/16/18 10:00 07/19/18 09:00 Norvasc PO 5 mg DAILY [facility] Administration Atovaquone 750 mg 07/18/18 18:00 07/19/18 17:38 Mepron PO 750 mg BID [facility] Administration Protocol Docusate Sodium 100 mg 07/13/18 18:00 07/19/18 17:38 Colace PO 100 mg BID [facility] Administration Famotidine 20 mg 07/17/18 10:00 07/19/18 09:00 Pepcid IVP 20 mg DAILY [facility] Administration Fluoxetine HCl 20 mg 07/17/18 10:00 07/19/18 09:00 Prozac PO 20 mg DAILY [facility] Administration Heparin Sodium (Porcine) 5,000 units 07/18/18 08:00 07/19/18 20:50 Heparin SC 5,000 units Q12H [facility] Administration Hydromorphone HCl 0.5 mg 07/19/18 03:39 07/19/18 17:50 Dilaudid IVP 0.5 mg Q8H PRN Administration Pain, severe (8-10) BUPIVACAINE 0.125%/0.9% NACL 600 mls @ 7 mls/hr 07/17/18 22:54 07/17/18 22:54 Bupivacaine-Ns 0.125% On-Q Shop Mechanic Helper IJ 07/21/18 01:42 7 mls/hr ONCE ONE Administration Doxycycline Hyclate 100 mg/ 100 mls @ 100 mls/hr 07/18/18 10:00 07/19/18 21:11 Sodium Chloride IVPB 100 mls/hr Q12H [facility] Administration Protocol Lidocaine 1 ea 07/14/18 17:32 07/19/18 09:00 Lidoderm TD 1 ea DAILY [facility] Administration Methylprednisolone 40 mg 07/18/18 08:15 07/19/18 17:10 Solu-Medrol IVP 40 mg Q8H [facility] Administration Metoprolol Tartrate 50 mg 07/16/18 10:00 07/19/18 17:38 Lopressor PO 50 mg BID [facility] Administration Potassium Chloride 40 meq 07/17/18 22:01 07/19/18 09:00 K-Dur 20 Meq Er Tab PO Not Given BRK [facility] Past Psychiatric History - Past Psychiatric History Pertinent Medical Hx (Current Medical&Sleep Prob, Allergies): Allergies Allergy/AdvReac Type Severity Reaction Status Date / Time No Known Allergies Allergy Verified 05/19/18 07:00 Fluoxetine HCl [Prozac] 1 tab PO DAILY 02/18/18 amLODIPine [Norvasc] 1 tab PO DAILY 02/18/18 Metoprolol Succinate 100 mg PO DAILY 07/01/18 Review of Systems - Psychiatric Psychiatric: As Per HPI, Behavioral Changes, Change in Appetite, Depression Mental Status Examination - Personal Presentation Personal Presentation: Looks stated age - Affect Affect: Blunted - Motor Activity Motor Activity: Calm - Reliability in Providing Information Reliability in Providing Information: Fair - Speech Speech: Coherent - Mood Mood: Anxious, Neutral - Formal Thought Process Formal Thought Process: No Impairment - Obsessions/Compulsions Obsessions: None Compulsions: None - Cognitive Functions Orientation: Person, Place, Situation, Time Sensorium: Alert Attention/Concentration: Attentive Estimate of Intelligence: Average Judgement: Imparied, as evidence by: Other Memory: Recent intact, as evidence by: Other - Risk Risk: Diminished functioning - Strength & Assets Inventory Strength & Assets Inventory: Family support DSM 5 DX - DSM 5 DSM 5 Diagnosis: Major Depressive Disorder, Recurrent, Severe without psychotic features - Recommended/Plan of Treatment Treatment Recommendations and Plan of Treatment: Start home medication - Prozac 20mg daily As need medications All risks, benefits and alternatives of the meds discussed, and the pt agreed and understood. Attend groups and activities Individual therapy daily Psychoeducation and support daily Encourage compliance with meds and after care Refer to outpatient program Teach healthy lifestyle methods, i.e. diet, exercise, meditation Smoking cessation and patch if needed 32 min - Smoking Cessation Smoking Cessation Initiated: No Reason for not providing: Patient is a non-smoker
[2018-07-20] MEDS: Albuterol-Ipratrop 3 mg / 0.5 (3 ml) UD INH SCH ×6 (00:30→19:31)
[2018-07-20] MEDS: HYDROmorphone 0.5 mg/0.5 ml ISec IVP PRN ×3 (05:30→23:25)
[2018-07-20 06:25] LABS: BASO % 0.1 % (0.0-2.0); HEMOGLOBIN 9.9 g/dL (11.0-16.0); LYMPH # 1.8 K/uL (1.0-4.3); LYMPH % 13.1 % (20.0-40.0); MEAN CORPUSCULAR HEMOGLOBIN 29.2 pg (27.0-31.0); MEAN CORPUSCULAR HGB CONC 32.9 g/dL (33.0-37.0); MEAN PLATELET VOLUME 8.9 fL (7.2-11.7); MONO # 0.6 K/uL (0.0-0.8); MONO % 4.3 % (0.0-10.0); NEUT # 11.6 K/uL (1.8-7.0); NEUT % 82.5 % (50.0-75.0); RBC 3.37 Mil/uL (3.80-5.20); RED CELL DISTRIBUTION WIDTH 13.5 % (11.5-14.5); WHITE BLOOD COUNT 14.1 K/uL (4.8-10.8)
[2018-07-20 06:34] LABS: ALB/GLOB RATIO 1.2 (1.0-2.1); ALBUMIN 3.5 g/dL (3.5-5.0); ALT/SGPT 50 U/L (9-52); AST/SGOT 25 U/L (14-36); BLOOD UREA NITROGEN 28 mg/dL (7-17); CALCIUM 8.9 mg/dl (8.6-10.4); GFR NON-AFRICAN AMERICAN > 60
--- NOTE | 2018-07-20 07:55 | CP.CCUPN ---
CCU Subjective - Physician Review Events Since Last Encounter (Free Text): 07/20/18 07:53 Patient is a 58-year-old female with history of hypertension admitted to the hospital following the colostomy reversal. Because of the hypoxia patient was transferred to ICU postoperatively on the second day. CCU Objective - Vital Signs / Intake & Output Vital Signs (Last 4 hours): Vital Signs Temp Pulse Resp BP Pulse Ox 07/20/18 07:47 59 L 07/20/18 06:00 62 20 100 07/20/18 05:33 66 22 147/79 100 07/20/18 05:00 82 28 H 07/20/18 04:31 66 25 H 145/75 100 07/20/18 04:00 98 F 78 29 H 100 Intake and Output (Last 8hrs): Intake & Output 07/19/18 07/20/18 07/20/18 22:59 06:59 14:59 Intake Total 450 50 Output Total 207 305 Balance 243 -255 Weight 112 lb 12.8 oz Intake: Intake, IV Amount 50 Left Forearm 50 Oral 400 50 Output: Drainage 5 5 Right Abdomen 5 5 Urine 201 300 Urine, Voided 201 300 Urine/Stool Mix 1 Other: # Voids Urine, Voided 1 1 # Bowel Movements 1 - Physical Exam Narrative Physical Exam (Free Text): 07/20/18 07:53 Patient is currently receiving high flow FiO2 on and off. Still needing slightly on the high FiO2. Mild respiratory distress on and off noted. Chest is clear otherwise. No wheezing or rales noted. Abdomen soft. Extremities edema 1+ Head: Positive for: Atraumatic, Normocephalic Pupils: Positive for: PERRL Extroacular Muscles: Positive for: EOMI Conjunctiva: Positive for: Normal Mouth: Positive for: Moist Mucous Membranes Neck: Positive for: Normal Range of Motion Respiratory/Chest: Positive for: Decreased Breath Sounds. Negative for: Respiratory Distress, Accessory Muscle Use, Wheezes Cardiovascular: Positive for: Regular Rate and Rhythm, Normal S1, S2. Negative for: Murmurs, Rub, Gallop Abdomen: Positive for: Normal Bowel Sounds, Other (surgical site clean/dr y/intact). Negative for: Tenderness, Distention, Peritoneal Signs Genitourinary/Pelvic Exam: Positive for: Other (vega in place draining clear yellow liquid) Upper Extremity: Positive for: Normal Inspection. Negative for: Cyanosis, Edema Lower Extremity: Positive for: Normal Inspection. Negative for: Edema Neurological: Positive for: GCS=15, CN II-XII Intact, Speech Normal Skin: Positive for: Warm, Normal Color. Negative for: Dry, Rashes Psychiatric: Positive for: Alert, Oriented x 3, Normal Insight, Normal Concentration - Medications Active Medications: Active Medications Generic Name Dose Route Start Last Admin Trade Name Freq PRN Reason Stop Dose Admin Albuterol/Ipratropium 3 ml 07/15/18 20:00 07/20/18 07:46 Duoneb 3 Mg/0.5 Mg (3 Ml) Ud INH 3 ml RQ4 [facility] Administration Amlodipine Besylate 5 mg 07/16/18 10:00 07/19/18 09:00 Norvasc PO 5 mg DAILY [facility] Administration Atovaquone 750 mg 07/18/18 18:00 07/19/18 17:38 Mepron PO 750 mg BID [facility] Administration Protocol Docusate Sodium 100 mg 07/13/18 18:00 07/19/18 17:38 Colace PO 100 mg BID [facility] Administration Famotidine 20 mg 07/17/18 10:00 07/19/18 09:00 Pepcid IVP 20 mg DAILY [facility] Administration Fluoxetine HCl 20 mg 07/17/18 10:00 07/19/18 09:00 Prozac PO 20 mg DAILY [facility] Administration Heparin Sodium (Porcine) 5,000 units 07/18/18 08:00 07/19/18 20:50 Heparin SC 5,000 units Q12H [facility] Administration Hydromorphone HCl 0.5 mg 07/19/18 03:39 07/20/18 05:30 Dilaudid IVP 0.5 mg Q8H PRN Administration Pain, severe (8-10) BUPIVACAINE 0.125%/0.9% NACL 600 mls @ 7 mls/hr 07/17/18 22:54 07/17/18 22:54 Bupivacaine-Ns 0.125% On-Q Data Processing Operator IJ 07/21/18 01:42 7 mls/hr ONCE ONE Administration Doxycycline Hyclate 100 mg/ 100 mls @ 100 mls/hr 07/18/18 10:00 07/19/18 21:11 Sodium Chloride IVPB 100 mls/hr Q12H [facility] Administration Protocol Lidocaine 1 ea 07/14/18 17:32 07/19/18 09:00 Lidoderm TD 1 ea DAILY [facility] Administration Methylprednisolone 40 mg 07/20/18 10:00 Solu-Medrol IVP Q12 [facility] Metoprolol Tartrate 50 mg 07/16/18 10:00 07/19/18 17:38 Lopressor PO 50 mg BID [facility] Administration Potassium Chloride 40 meq 07/17/18 22:01 07/19/18 09:00 K-Dur 20 Meq Er Tab PO Not Given BRK [facility] - Patient Studies Lab Studies: Lab Studies 07/20/18 07/20/18 07/20/18 Range/Units 06:09 06:07 05:13 WBC 14.1 H (4.8-10.8) K/uL RBC 3.37 L (3.80-5.20) Mil/uL Hgb 9.9 L (11.0-16.0) g/dL Hct 30.0 L (34.0-47.0) % MCV 89.0 (81.0-99.0) fL MCH 29.2 (27.0-31.0) pg MCHC 32.9 L (33.0-37.0) g/dL RDW 13.5 (11.5-14.5) % Plt Count 328 (130-400) K/uL MPV 8.9 (7.2-11.7) fL Neut % (Auto) 82.5 H (50.0-75.0) % Lymph % (Auto) 13.1 L (20.0-40.0) % Twiggs % (Auto) 4.3 (0.0-10.0) % Eos % (Auto) 0.0 (0.0-4.0) % Baso % (Auto) 0.1 (0.0-2.0) % Neut # (Auto) 11.6 H (1.8-7.0) K/uL Lymph # (Auto) 1.8 (1.0-4.3) K/uL Twiggs # (Auto) 0.6 (0.0-0.8) K/uL Eos # (Auto) 0.0 (0.0-0.7) K/uL Baso # (Auto) 0.0 (0.0-0.2) K/uL Neutrophils % (Manual) (50-75) % Band Neutrophils % (0-2) % Lymphocytes % (Manual) (20-40) % Monocytes % (Manual) (0-10) % Platelet Estimate (NORMAL) RBC Morphology Sodium 140 (132-148) mmol/L Potassium 3.4 L (3.6-5.2) mmol/L Chloride 102 (98-107) mmol/L Carbon Dioxide 25 (22-30) mmol/L Anion Gap 16 (10-20) BUN 28 H (7-17) mg/dL Creatinine 0.9 (0.7-1.2) mg/dL Est GFR ( Amer) > 60 Est GFR (Non-Af Amer) > 60 Random Glucose 121 H D (65-105) mg/dL Calcium 8.9 (8.6-10.4) mg/dl Phosphorus 4.2 (2.5-4.5) mg/dL Magnesium 1.8 (1.6-2.3) mg/dL Total Bilirubin 0.4 (0.2-1.3) mg/dL AST 25 (14-36) U/L ALT 50 (9-52) U/L Alkaline Phosphatase 258 H D (38-126) U/L Total Protein 6.4 (6.3-8.3) g/dL Albumin 3.5 (3.5-5.0) g/dL Globulin 2.9 (2.2-3.9) gm/dL Albumin/Globulin Ratio 1.2 (1.0-2.1) HIV 1&2 Antibody Screen (NEGATIVE) Ur L.pneumophila Ag Negative (NEGATIVE) 07/19/18 07/18/18 Range/Units 06:07 15:44 WBC (4.8-10.8) K/uL RBC (3.80-5.20) Mil/uL Hgb (11.0-16.0) g/dL Hct (34.0-47.0) % MCV (81.0-99.0) fL MCH (27.0-31.0) pg MCHC (33.0-37.0) g/dL RDW (11.5-14.5) % Plt Count (130-400) K/uL MPV (7.2-11.7) fL Neut % (Auto) (50.0-75.0) % Lymph % (Auto) (20.0-40.0) % Twiggs % (Auto) (0.0-10.0) % Eos % (Auto) (0.0-4.0) % Baso % (Auto) (0.0-2.0) % Neut # (Auto) (1.8-7.0) K/uL Lymph # (Auto) (1.0-4.3) K/uL Twiggs # (Auto) (0.0-0.8) K/uL Eos # (Auto) (0.0-0.7) K/uL Baso # (Auto) (0.0-0.2) K/uL Neutrophils % (Manual) 83 H (50-75) % Band Neutrophils % 2 (0-2) % Lymphocytes % (Manual) 9 L (20-40) % Monocytes % (Manual) 6 (0-10) % Platelet Estimate Normal (NORMAL) RBC Morphology Normal Sodium (132-148) mmol/L Potassium (3.6-5.2) mmol/L Chloride (98-107) mmol/L Carbon Dioxide (22-30) mmol/L Anion Gap (10-20) BUN (7-17) mg/dL Creatinine (0.7-1.2) mg/dL Est GFR ( Amer) Est GFR (Non-Af Amer) Random Glucose (65-105) mg/dL Calcium (8.6-10.4) mg/dl Phosphorus (2.5-4.5) mg/dL Magnesium (1.6-2.3) mg/dL Total Bilirubin (0.2-1.3) mg/dL AST (14-36) U/L ALT (9-52) U/L Alkaline Phosphatase (38-126) U/L Total Protein (6.3-8.3) g/dL Albumin (3.5-5.0) g/dL Globulin (2.2-3.9) gm/dL Albumin/Globulin Ratio (1.0-2.1) HIV 1&2 Antibody Screen Negative (NEGATIVE) Ur L.pneumophila Ag (NEGATIVE) Laboratory Results - last 24 hr 07/18/18 07/19/18 07/20/18 15:44 06:07 05:13 WBC RBC Hgb Hct MCV MCH MCHC RDW Plt Count MPV Neut % (Auto) Lymph % (Auto) Twiggs % (Auto) Eos % (Auto) Baso % (Auto) Neut # (Auto) Lymph # (Auto) Twiggs # (Auto) Eos # (Auto) Baso # (Auto) Neutrophils % (Manual) 83 H Band Neutrophils % 2 Lymphocytes % (Manual) 9 L Monocytes % (Manual) 6 Platelet Estimate Normal RBC Morphology Normal Sodium Potassium Chloride Carbon Dioxide Anion Gap BUN Creatinine Est GFR ( Amer) Est GFR (Non-Af Amer) Random Glucose Calcium Phosphorus Magnesium Total Bilirubin AST ALT Alkaline Phosphatase Total Protein Albumin Globulin Albumin/Globulin Ratio HIV 1&2 Antibody Screen Negative Ur L.pneumophila Ag Negative 07/20/18 07/20/18 06:07 06:09 WBC 14.1 H RBC 3.37 L Hgb 9.9 L Hct 30.0 L MCV 89.0 MCH 29.2 MCHC 32.9 L RDW 13.5 Plt Count 328 MPV 8.9 Neut % (Auto) 82.5 H Lymph % (Auto) 13.1 L Twiggs % (Auto) 4.3 Eos % (Auto) 0.0 Baso % (Auto) 0.1 Neut # (Auto) 11.6 H Lymph # (Auto) 1.8 Twiggs # (Auto) 0.6 Eos # (Auto) 0.0 Baso # (Auto) 0.0 Neutrophils % (Manual) Band Neutrophils % Lymphocytes % (Manual) Monocytes % (Manual) Platelet Estimate RBC Morphology Sodium 140 Potassium 3.4 L Chloride 102 Carbon Dioxide 25 Anion Gap 16 BUN 28 H Creatinine 0.9 Est GFR ( Amer) > 60 Est GFR (Non-Af Amer) > 60 Random Glucose 121 H D Calcium 8.9 Phosphorus 4.2 Magnesium 1.8 Total Bilirubin 0.4 AST 25 ALT 50 Alkaline Phosphatase 258 H D Total Protein 6.4 Albumin 3.5 Globulin 2.9 Albumin/Globulin Ratio 1.2 HIV 1&2 Antibody Screen Ur L.pneumophila Ag Radiology Impressions: Radiology Impressions Chest X-Ray 07/18/18 06:52 IMPRESSION: Diffuse hazy opacities in the lungs again noted slightly worse compared to the previous exam. Review of Systems - Review of Systems All systems: reviewed and no additional remarkable complaints except Review of Systems: Minimal respiratory distress, needing high FiO2 on and off Critical Care Progress Note - Ventilator Checklist Head of Bed 30 Degrees: Yes - Nutrition Nutrition: Nutrition Category Date Time Status Liquid Diet [DIET] Diets 07/18/18 Breakfast Active Assessment/Plan - Assessment and Plan (Free Text) Assessment: Patient is a 58-year-old female admitted to the hospital following the colostomy reversal. Patient did not have any x-ray on the day of admission, but did 2 days later with a chest x-ray showing pneumonia pattern. 2 days postoperatively patient developing pneumonia, most likely patient has postoperative pneumonia. Currently responding with antibiotic. Less likely immunosuppressive condition. Currently receiving antibiotic including mefloquine Out of bed to chair. Clinically stable.
[2018-07-20] MEDS: Potassium Chloride 20 mEq ER Tab PO SCH (08:08)
[2018-07-20] MEDS ORDERED: Potassium Chloride 20 mEq/15 ml LIQ UD PO ONE (08:15)
[2018-07-20] MEDS: MethylPREDNISolone 40 mg Vial IVP SCH ×2 (09:56→22:55)
[2018-07-20] MEDS: Lidocaine 5% Patch TD SCH (09:57)
[2018-07-20] MEDS: Atovaquone 750 mg/5 ml Susp UD PO SCH ×2 (09:57→18:18)
--- NOTE | 2018-07-20 10:45 | RAD ---
Date of service: 07/20/2018 HISTORY: pna COMPARISON: No prior. TECHNIQUE: 1 view obtained. FINDINGS: LUNGS: Diffuse hazy opacities in the lungs are again noted. PLEURA: Blunting of the left costophrenic angle is noted. CARDIOVASCULAR: Foci of aortic atherosclerotic calcification present. Mildly enlarged heart is again noted. Diffuse pulmonary vascular congestion is noted. OSSEOUS STRUCTURES: No significant abnormalities. VISUALIZED UPPER ABDOMEN: Normal. OTHER FINDINGS: None. IMPRESSION: Overall no significant interval changes.
--- NOTE | 2018-07-20 12:58 | CP.PCM.PN ---
<Jignesh Morton - Last Filed: 07/20/18 12:54> Subjective - Date & Time of Evaluation Date of Evaluation: 07/20/18 Time of Evaluation: 08:35 - Subjective Subjective: Surgery Progress note. Dr. Gavin Pt seen and examined at bedside this morning. States that she has been having BMs and flatus. Denies any CP. SOB improving. On BiPAP overnight. No F/C. No new complaints. Pain well controlled on current regimen. Objective - Vital Signs/Intake and Output Vital Signs (last 24 hours): Temp Pulse Resp BP Pulse Ox 97.3 F L 66 24 149/78 99 07/20/18 08:00 07/20/18 09:45 07/20/18 11:08 07/20/18 09:45 07/20/18 09:45 Intake and Output: 07/20/18 07/20/18 06:59 18:59 Intake Total 450 360 Output Total 505 300 Balance -55 60 - Medications Medications: Current Medications Albuterol/Ipratropium (Duoneb 3 Mg/0.5 Mg (3 Ml) Ud) 3 ml INH RQ4 [facility] Last Admin: 07/20/18 11:02 Dose: 3 ml Amlodipine Besylate (Norvasc) 5 mg PO DAILY [facility] Last Admin: 07/20/18 09:57 Dose: 5 mg Atovaquone (Mepron) 750 mg PO BID [facility]; Protocol Last Admin: 07/20/18 09:57 Dose: 750 mg Docusate Sodium (Colace) 100 mg PO BID [facility] Last Admin: 07/20/18 09:56 Dose: 100 mg Famotidine (Pepcid) 20 mg IVP DAILY [facility] Last Admin: 07/20/18 09:56 Dose: 20 mg Fluoxetine HCl (Prozac) 20 mg PO DAILY [facility] Last Admin: 07/20/18 09:56 Dose: 20 mg Heparin Sodium (Porcine) (Heparin) 5,000 units SC Q12H [facility] Last Admin: 07/20/18 08:08 Dose: 5,000 units Hydromorphone HCl (Dilaudid) 0.5 mg IVP Q8H PRN PRN Reason: Pain, severe (8-10) Last Admin: 07/20/18 05:30 Dose: 0.5 mg BUPIVACAINE 0.125%/0.9% NACL (Bupivacaine-Ns 0.125% On-Q Zipper Measurer) 600 mls @ 7 mls/hr IJ ONCE ONE Stop: 07/21/18 01:42 Last Admin: 07/17/18 22:54 Dose: 7 mls/hr Doxycycline Hyclate 100 mg/ (Sodium Chloride) 100 mls @ 100 mls/hr IVPB Q12H [facility]; Protocol Last Admin: 07/20/18 09:57 Dose: 100 mls/hr Potassium Chloride (Potassium Chloride 20 Meq/100 Ml) 20 meq in 100 mls @ 50 mls/hr IVPB ONCE ONE Stop: 07/20/18 14:34 Lidocaine (Lidoderm) 1 ea TD DAILY [facility] Last Admin: 07/20/18 09:57 Dose: 1 ea Methylprednisolone (Solu-Medrol) 40 mg IVP Q12 [facility] Last Admin: 07/20/18 09:56 Dose: 40 mg Metoprolol Tartrate (Lopressor) 50 mg PO BID [facility] Last Admin: 07/20/18 10:01 Dose: 50 mg Potassium Chloride (K-Dur 20 Meq Er Tab) 40 meq PO BRK [facility] Last Admin: 07/20/18 08:08 Dose: 40 meq - Labs Labs: 07/20/18 06:09 07/20/18 06:07 - Constitutional Appears: Well, Non-toxic, No Acute Distress - Head Exam Head Exam: ATRAUMATIC, NORMAL INSPECTION, NORMOCEPHALIC - Eye Exam Eye Exam: EOMI, Normal appearance. absent: Scleral icterus - ENT Exam ENT Exam: Mucous Membranes Moist - Respiratory Exam Respiratory Exam: NORMAL BREATHING PATTERN. absent: Accessory Muscle Use, Respiratory Distress - Cardiovascular Exam Cardiovascular Exam: RRR. absent: JVD - GI/Abdominal Exam GI & Abdominal Exam: Soft. absent: Distended, Firm, Guarding, Tenderness, Rebound Additional comments: Dressing clean, dry and intact. - Extremities Exam Extremities Exam: Normal Inspection. absent: Calf Tenderness - Neurological Exam Neurological Exam: Alert, Awake, Oriented x3 - Psychiatric Exam Psychiatric exam: Normal Affect, Normal Mood - Skin Skin Exam: Dry, Intact, Normal Color, Warm Assessment and Plan - Assessment and Plan (Free Text) Assessment: 58yo F s/p laparotomy, extensive LARISSA, colon & rectal resection, w/ primary anastomosis, myomectomy, cholecystectomy, POD#7 Plan: - Advance diet to soft. ADAT - Pain control. On-Q discontinued this morning. - Appreciate Pulm recs - Encourage OOBTC and Ambulation - Continue Fabrice drain to self-suction. Monitor outputs - Anti-emetics as needed Further recs as per Dr. Romaine Morton PGY2 surgery <Dietre Gavin - Last Filed: 07/25/18 20:15> Objective - Vital Signs/Intake and Output Vital Signs (last 24 hours): Temp Pulse Resp BP Pulse Ox 98.3 F 76 20 138/76 99 07/23/18 16:00 07/23/18 16:00 07/23/18 16:00 07/23/18 17:36 07/23/18 16:00 - Labs Labs: 07/23/18 06:10 07/23/18 06:14 Attending/Attestation - Attestation I have personally seen and examined this patient.: Yes I have fully participated in the care of the patient.: Yes I have reviewed all pertinent clinical information, including history, physical exam and plan: Yes Notes (Text): Pt was seen and examined at bedside Agree with above note and assessment Pt is improving clinically SOB is resolving Had BM bew current mx Plan d.w pt in detail
--- NOTE | 2018-07-20 17:32 | CP.PCM.PN ---
Subjective - Date & Time of Evaluation Date of Evaluation: 07/20/18 Time of Evaluation: 12:30 - Subjective Subjective: patient seen today no dizziness no diarrhea no fever no nausea no vomiting no shortness of breath Objective - Vital Signs/Intake and Output Vital Signs (last 24 hours): Temp Pulse Resp BP Pulse Ox 97.4 F L 56 L 24 140/69 100 07/20/18 16:00 07/20/18 16:00 07/20/18 16:00 07/20/18 15:31 07/20/18 16:00 Intake and Output: 07/20/18 07/20/18 06:59 18:59 Intake Total 450 850 Output Total 505 600 Balance -55 250 - Medications Medications: Current Medications Albuterol/Ipratropium (Duoneb 3 Mg/0.5 Mg (3 Ml) Ud) 3 ml INH RQ4 [facility] Last Admin: 07/20/18 15:53 Dose: 3 ml Amlodipine Besylate (Norvasc) 5 mg PO DAILY [facility] Last Admin: 07/20/18 09:57 Dose: 5 mg Atovaquone (Mepron) 750 mg PO BID [facility]; Protocol Last Admin: 07/20/18 09:57 Dose: 750 mg Docusate Sodium (Colace) 100 mg PO BID [facility] Last Admin: 07/20/18 09:56 Dose: 100 mg Famotidine (Pepcid) 20 mg IVP DAILY [facility] Last Admin: 07/20/18 09:56 Dose: 20 mg Fluoxetine HCl (Prozac) 20 mg PO DAILY [facility] Last Admin: 07/20/18 09:56 Dose: 20 mg Heparin Sodium (Porcine) (Heparin) 5,000 units SC Q12H [facility] Last Admin: 07/20/18 08:08 Dose: 5,000 units Hydromorphone HCl (Dilaudid) 0.5 mg IVP Q8H PRN PRN Reason: Pain, severe (8-10) Last Admin: 07/20/18 14:27 Dose: 0.5 mg BUPIVACAINE 0.125%/0.9% NACL (Bupivacaine-Ns 0.125% On-Q [employer]) 600 mls @ 7 mls/hr IJ ONCE ONE Stop: 07/21/18 01:42 Last Admin: 07/17/18 22:54 Dose: 7 mls/hr Doxycycline Hyclate 100 mg/ (Sodium Chloride) 100 mls @ 100 mls/hr IVPB Q12H [facility]; Protocol Last Admin: 07/20/18 09:57 Dose: 100 mls/hr Lidocaine (Lidoderm) 1 ea TD DAILY [facility] Last Admin: 07/20/18 09:57 Dose: 1 ea Methylprednisolone (Solu-Medrol) 40 mg IVP Q12 [facility] Last Admin: 07/20/18 09:56 Dose: 40 mg Metoprolol Tartrate (Lopressor) 50 mg PO BID [facility] Last Admin: 07/20/18 10:01 Dose: 50 mg Potassium Chloride (K-Dur 20 Meq Er Tab) 40 meq PO BRK [facility] Last Admin: 07/20/18 08:08 Dose: 40 meq - Labs Labs: 07/20/18 06:09 07/20/18 06:07 - Constitutional Appears: Well - Head Exam Head Exam: ATRAUMATIC, NORMAL INSPECTION, NORMOCEPHALIC - Eye Exam Eye Exam: EOMI, Normal appearance, PERRL Pupil Exam: NORMAL ACCOMODATION, PERRL - ENT Exam ENT Exam: Mucous Membranes Moist, Normal Exam - Neck Exam Neck Exam: Full ROM, Normal Inspection. absent: Lymphadenopathy - Respiratory Exam Respiratory Exam: Decreased Breath Sounds - Cardiovascular Exam Cardiovascular Exam: REGULAR RHYTHM, +S1, +S2 - GI/Abdominal Exam GI & Abdominal Exam: Soft, Diminished Bowel Sounds - Rectal Exam Rectal Exam: Deferred - Neurological Exam Neurological Exam: Oriented x3 Assessment and Plan - Assessment and Plan (Free Text) Plan: plan discussed with patient moderate complexity of care medications reviewed vitals reviewed labs reviewed bupivacane-ns colace duoneb lidoderm lovenox morphine prozac potassium chl toradol vancomycin zofran inj zosyn
--- NOTE | 2018-07-20 20:20 | PCM.PYCHPN ---
Psychiatric Progress Note - Psychiatric Progress Note Patient seen today, length of contact: 16 Mins Patient Chief Complaint: "I am doing fine" Problems Identified/Issues Discussed: The pt is seen, chart reviewed, case is discussed with staff. The pt is compliant with medications and reports no side-effects. Symptoms are improving but needs more time to stabilize and to avoid relapse. Pt attends groups and activities. Support given, psycho-education provided. After care discussed. Medication Change: Yes Medical Record Reviewed: Yes Mental Status Examination - Cognitive Function Orientation: Person, Place, Situation, Time Attention: WNL Concentration: WNL - Mood Mood: Anxious, Neutral - Affect Affect: Blunted - Speech Speech: Appropriate - Formal Thought Process Formal Thought Process: No Impairment - Suicidal Ideation Suicidal Ideation: No - Homicidal Ideation Homicidal Ideation: No Goal/Treatment Plan - Goal/Treatment Plan Need for Continued Stay: Remain at risks for inpatient hospitalization, Severe depression anxiety Progress Toward Problem(s) and Goals/Treatment Plan: Continue medications Support and psychoeducation daily Attend groups and activities daily Individual therapy After care planning by WALT and the team
[2018-07-20] MEDS: oxyCODONE 5 mg Immediate Release Tab PO PRN (20:23)
[2018-07-21] MEDS: Albuterol-Ipratrop 3 mg / 0.5 (3 ml) UD INH SCH ×7 (00:21→23:57)
[2018-07-21 06:27] LABS: ALB/GLOB RATIO 1.2 (1.0-2.1); ALBUMIN 3.3 g/dL (3.5-5.0); ALT/SGPT 41 U/L (9-52); AST/SGOT 28 U/L (14-36); BLOOD UREA NITROGEN 31 mg/dL (7-17); GFR NON-AFRICAN AMERICAN > 60
--- NOTE | 2018-07-21 07:10 | CP.PCM.PN ---
<Lou Saba - Last Filed: 07/21/18 07:11> Subjective - Date & Time of Evaluation Date of Evaluation: 07/21/18 Time of Evaluation: 07:06 - Subjective Subjective: General surgery progress note for Dr. Gavin-Lou Saba, PGY-2 Pt seen/examined at bedside Pt reports some abdominal cramping after removal of OnQ ball yesterday. Continues to require HiFlow O2, now off Bipap. Tolerating diet- denies N & V, F & C. Objective - Vital Signs/Intake and Output Vital Signs (last 24 hours): Temp Pulse Resp BP Pulse Ox 98.2 F 57 L 20 145/70 100 07/21/18 04:00 07/21/18 06:31 07/21/18 06:31 07/21/18 06:31 07/21/18 06:31 Intake and Output: 07/21/18 07/21/18 06:59 18:59 Intake Total 700 0 Output Total 600 10 Balance 100 -10 - Medications Medications: Current Medications Albuterol/Ipratropium (Duoneb 3 Mg/0.5 Mg (3 Ml) Ud) 3 ml INH RQ4 [facility] Last Admin: 07/21/18 03:05 Dose: 3 ml Amlodipine Besylate (Norvasc) 5 mg PO DAILY [facility] Last Admin: 07/20/18 09:57 Dose: 5 mg Atovaquone (Mepron) 750 mg PO BID [facility]; Protocol Last Admin: 07/20/18 18:18 Dose: 750 mg Docusate Sodium (Colace) 100 mg PO BID [facility] Last Admin: 07/20/18 18:19 Dose: Not Given Famotidine (Pepcid) 20 mg IVP DAILY [facility] Last Admin: 07/20/18 09:56 Dose: 20 mg Fluoxetine HCl (Prozac) 20 mg PO DAILY [facility] Last Admin: 07/20/18 09:56 Dose: 20 mg Heparin Sodium (Porcine) (Heparin) 5,000 units SC Q12H [facility] Last Admin: 07/20/18 20:30 Dose: 5,000 units Hydromorphone HCl (Dilaudid) 0.5 mg IVP Q8H PRN PRN Reason: Pain, severe (8-10) Last Admin: 07/20/18 23:25 Dose: 0.5 mg Doxycycline Hyclate 100 mg/ (Sodium Chloride) 100 mls @ 100 mls/hr IVPB Q12H [facility]; Protocol Last Admin: 07/20/18 22:53 Dose: 100 mls/hr Lidocaine (Lidoderm) 1 ea TD DAILY [facility] Last Admin: 07/20/18 09:57 Dose: 1 ea Methylprednisolone (Solu-Medrol) 40 mg IVP Q12 [facility] Last Admin: 07/20/18 22:55 Dose: 40 mg Metoprolol Tartrate (Lopressor) 50 mg PO BID [facility] Last Admin: 07/20/18 18:18 Dose: Not Given Oxycodone HCl (Oxycodone Immediate Release Tab) 5 mg PO Q6 PRN PRN Reason: Pain, moderate (4-7) Last Admin: 07/20/18 20:23 Dose: 5 mg Potassium Chloride (K-Dur 20 Meq Er Tab) 40 meq PO BRK [facility] Last Admin: 07/20/18 08:08 Dose: 40 meq - Labs Labs: 07/20/18 06:09 07/21/18 05:46 - Constitutional Appears: Non-toxic, No Acute Distress - Head Exam Head Exam: ATRAUMATIC, NORMAL INSPECTION, NORMOCEPHALIC - Eye Exam Eye Exam: EOMI, Normal appearance - ENT Exam ENT Exam: Mucous Membranes Moist, Normal Exam - Neck Exam Neck Exam: Full ROM - Respiratory Exam Respiratory Exam: NORMAL BREATHING PATTERN Additional comments: On HiFlow O2 - Cardiovascular Exam Cardiovascular Exam: REGULAR RHYTHM, +S1, +S2 - GI/Abdominal Exam GI & Abdominal Exam: Soft, Tenderness (mild, over incision sites). absent: Distended, Firm, Guarding, Rigid - Extremities Exam Extremities Exam: Normal Inspection - Neurological Exam Neurological Exam: Alert, Awake, CN II-XII Intact, Oriented x3 - Psychiatric Exam Psychiatric exam: Normal Affect, Normal Mood - Skin Skin Exam: Dry, Normal Color, Warm Additional comments: Midline abdominal incision with aquacel dressing in place, colostomy reversal site with gauze dressing in place- clean/dry/intact. BLAIR with scan serosanguinous output- dressing clean/dry/intact Assessment and Plan - Assessment and Plan (Free Text) Assessment: 58yo F s/p laparotomy, extensive LARISSA, colon & rectal resection, w/ primary anastomosis, myomectomy, cholecystectomy, POD#8 Plan: Continue soft diet Pain control PRN O2 PRN FU pulm recs OOBTC PT Ambulate Fabrice to self-suction Intake/output Anti-emetic prn Encourage IS use Further recs pending Dr. Gavin evaluation Will DW Dr. Romaine Saba, PGY-2 <Dieter Gavin - Last Filed: 07/25/18 20:14> Objective - Vital Signs/Intake and Output Vital Signs (last 24 hours): Temp Pulse Resp BP Pulse Ox 98.3 F 76 20 138/76 99 07/23/18 16:00 07/23/18 16:00 07/23/18 16:00 07/23/18 17:36 07/23/18 16:00 - Labs Labs: 07/23/18 06:10 07/23/18 06:14 Attending/Attestation - Attestation I have personally seen and examined this patient.: Yes I have fully participated in the care of the patient.: Yes I have reviewed all pertinent clinical information, including history, physical exam and plan: Yes Notes (Text): Pt was seen and examined at bedside Agree with above note and assessment Pt is improving clinically Advance diet as tolerated DC plan Plan d.w pt in detail
[2018-07-21] MEDS: HYDROmorphone 0.5 mg/0.5 ml ISec IVP PRN ×2 (07:52→18:31)
[2018-07-21] MEDS: Lidocaine 5% Patch TD SCH (09:37)
[2018-07-21] MEDS: Atovaquone 750 mg/5 ml Susp UD PO SCH ×2 (09:38→18:28)
[2018-07-21] MEDS: MethylPREDNISolone 40 mg Vial IVP SCH ×2 (09:39→22:19)
--- NOTE | 2018-07-21 09:43 | CP.CCUPN ---
<SalvatoreMarcellasrisandra - Last Filed: 07/21/18 13:58> CCU Subjective - Physician Review Subjective (Free Text): 07/21/18 12:42 Fausto Chase PGY1 Progress Note for Dr. Dewey Patient was examined at bedside this morning. She reports improvement in her breathing today, however still feels short of breath when not using supplemental O2. She reports some dizziness and nausea intermittently. She complains of abdominal pain at the surgical site. CCU Objective - Vital Signs / Intake & Output Vital Signs (Last 4 hours): Vital Signs Pulse Resp BP Pulse Ox 07/21/18 07:35 17 07/21/18 07:03 57 L 17 154/77 H 100 07/21/18 06:31 57 L 20 145/70 100 07/21/18 05:46 21 Intake and Output (Last 8hrs): Intake & Output 07/20/18 07/21/18 07/21/18 22:59 06:59 14:59 Intake Total 940 0 0 Output Total 200 400 10 Balance 740 -400 -10 Weight 51.755 kg Intake: Intake, IV Amount 100 0 0 Left Forearm 100 0 0 Oral 840 0 0 Output: Drainage 10 Right Abdomen 10 Urine 400 Urine, Voided 400 Urine/Stool Mix 200 0 0 Other: # Voids Urine, Voided 0 0 0 # Bowel Movements 0 0 0 - Physical Exam Head: Positive for: Atraumatic, Normocephalic Pupils: Positive for: PERRL Extroacular Muscles: Positive for: EOMI Conjunctiva: Positive for: Normal Mouth: Positive for: Moist Mucous Membranes Neck: Positive for: Normal Range of Motion Respiratory/Chest: Positive for: Decreased Breath Sounds. Negative for: Respiratory Distress, Accessory Muscle Use, Wheezes Cardiovascular: Positive for: Regular Rate and Rhythm, Normal S1, S2. Negative for: Murmurs, Rub, Gallop Abdomen: Positive for: Normal Bowel Sounds, Other (surgical site clean/dry/intact). Negative for: Tenderness, Distention, Peritoneal Signs Genitourinary/Pelvic Exam: Positive for: Other (vega in place draining clear yellow liquid) Upper Extremity: Positive for: Normal Inspection. Negative for: Cyanosis, Edema Lower Extremity: Positive for: Normal Inspection. Negative for: Edema Neurological: Positive for: GCS=15, CN II-XII Intact, Speech Normal Skin: Positive for: Warm, Normal Color. Negative for: Dry, Rashes Psychiatric: Positive for: Alert, Oriented x 3, Normal Insight, Normal Concentration - Medications Active Medications: Active Medications Generic Name Dose Route Start Last Admin Trade Name Freq PRN Reason Stop Dose Admin Albuterol/Ipratropium 3 ml 07/15/18 20:00 07/21/18 07:33 Duoneb 3 Mg/0.5 Mg (3 Ml) Ud INH 3 ml RQ4 [facility] Administration Amlodipine Besylate 5 mg 07/16/18 10:00 07/21/18 09:38 Norvasc PO 5 mg DAILY [facility] Administration Atovaquone 750 mg 07/18/18 18:00 07/21/18 09:38 Mepron PO 750 mg BID [facility] Administration Protocol Docusate Sodium 100 mg 07/13/18 18:00 07/21/18 09:36 Colace PO Not Given BID [facility] Famotidine 20 mg 07/17/18 10:00 07/21/18 09:39 Pepcid IVP 20 mg DAILY [facility] Administration Fluoxetine HCl 20 mg 07/17/18 10:00 07/21/18 09:39 Prozac PO 20 mg DAILY [facility] Administration Heparin Sodium (Porcine) 5,000 units 07/18/18 08:00 07/21/18 09:37 Heparin SC 5,000 units Q12H [facility] Administration Hydromorphone HCl 0.5 mg 07/19/18 03:39 07/21/18 07:52 Dilaudid IVP 0.5 mg Q8H PRN Administration Pain, severe (8-10) Doxycycline Hyclate 100 mg/ 100 mls @ 100 mls/hr 07/18/18 10:00 07/21/18 09:39 Sodium Chloride IVPB 100 mls/hr Q12H [facility] Administration Protocol Lidocaine 1 ea 07/14/18 17:32 07/21/18 09:37 Lidoderm TD 1 ea DAILY [facility] Administration Methylprednisolone 40 mg 07/20/18 10:00 07/21/18 09:39 Solu-Medrol IVP 40 mg Q12 [facility] Administration Metoprolol Tartrate 50 mg 07/16/18 10:00 07/21/18 09:38 Lopressor PO 50 mg BID [facility] Administration Oxycodone HCl 5 mg 07/20/18 20:07 07/20/18 20:23 Oxycodone Immediate Release Tab PO 5 mg Q6 PRN Administration Pain, moderate (4-7) Potassium Chloride 40 meq 07/17/18 22:01 07/20/18 08:08 K-Dur 20 Meq Er Tab PO 40 meq BRK [facility] Administration - Patient Studies Lab Studies: Lab Studies 07/21/18 Range/Units 05:46 Sodium 136 (132-148) mmol/L Potassium 4.6 (3.6-5.2) mmol/L Chloride 101 (98-107) mmol/L Carbon Dioxide 25 (22-30) mmol/L Anion Gap 14 (10-20) BUN 31 H (7-17) mg/dL Creatinine 0.8 (0.7-1.2) mg/dL Est GFR ( Amer) > 60 Est GFR (Non-Af Amer) > 60 Random Glucose 139 H (65-105) mg/dL Calcium 9.0 (8.6-10.4) mg/dl Total Bilirubin 0.3 (0.2-1.3) mg/dL AST 28 (14-36) U/L ALT 41 (9-52) U/L Alkaline Phosphatase 209 H (38-126) U/L Total Protein 6.2 L (6.3-8.3) g/dL Albumin 3.3 L (3.5-5.0) g/dL Globulin 2.9 (2.2-3.9) gm/dL Albumin/Globulin Ratio 1.2 (1.0-2.1) Laboratory Results - last 24 hr 07/21/18 05:46 Sodium 136 Potassium 4.6 Chloride 101 Carbon Dioxide 25 Anion Gap 14 BUN 31 H Creatinine 0.8 Est GFR ( Amer) > 60 Est GFR (Non-Af Amer) > 60 Random Glucose 139 H Calcium 9.0 Total Bilirubin 0.3 AST 28 ALT 41 Alkaline Phosphatase 209 H Total Protein 6.2 L Albumin 3.3 L Globulin 2.9 Albumin/Globulin Ratio 1.2 Radiology Impressions: Radiology Impressions Chest X-Ray 07/20/18 07:56 IMPRESSION: Overall no significant interval changes. Review of Systems - Review of Systems Review of Systems: 12 point ROS performed and negative other than what is stated in HPI Critical Care Progress Note - Nutrition Nutrition: Nutrition Category Date Time Status Heart Healthy Diet [DIET] Diets 07/20/18 Lunch Active Assessment/Plan - Assessment and Plan (Free Text) Assessment: Patient is a 58yo F with PMH HTN, colostomy, depression who presented to ED for colostomy reversal. S/p Laparotomy, extensive lysis of adhesions, colon resection, rectal resection, primary anastomosis of colon and rectum, rectal foreign body removal, myomectomy, cholecystectomy, and OnQ placement POD #8. ICU consulted for [employer] due to hypoxia. Patient now on high flow O2. Plan: Neuro: - AAOx3 - GSC 15 - no focal deficits Cardiovascular: - h/o HTN - ECHO: diastolic dysfunction, MR, pulmonary HTN. EF >70%. - norvasc, metoprolol tartrate - maintain normotension Pulm: - high flow O2 - duonebs q4h - CXR: dense confluent consolidative opacification in R upper to mid lung and b/l lung bases. fluid overload. 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 Dewey <Eleno Dewey S - Last Filed: 07/21/18 18:25> CCU Subjective - Physician Review Critical Care Time Spent (in minutes): 40 CCU Objective - Vital Signs / Intake & Output Vital Signs (Last 4 hours): Vital Signs Temp Pulse Resp BP Pulse Ox 07/21/18 17:03 75 25 H 127/68 100 07/21/18 17:00 75 22 100 07/21/18 16:03 73 25 H 125/54 L 07/21/18 16:00 98.2 F 72 24 07/21/18 15:03 72 25 H 139/65 96 07/21/18 15:00 71 24 97 Intake and Output (Last 8hrs): Intake & Output 07/21/18 07/21/18 07/21/18 06:59 14:59 22:59 Intake Total 0 460 0 Output Total 400 10 Balance -400 450 0 Weight 114 lb 1.6 oz Intake: Intake, IV Amount 0 100 Left Forearm 0 100 Oral 0 360 0 Output: Drainage 10 Right Abdomen 10 Urine 400 Urine, Voided 400 Urine/Stool Mix 0 0 Other: # Voids Urine, Voided 0 1 # Bowel Movements 0 1 - Medications Active Medications: Active Medications Generic Name Dose Route Start Last Admin Trade Name Freq PRN Reason Stop Dose Admin Albuterol/Ipratropium 3 ml 07/15/18 20:00 07/21/18 15:37 Duoneb 3 Mg/0.5 Mg (3 Ml) Ud INH 3 ml RQ4 [facility] Administration Amlodipine Besylate 5 mg 07/16/18 10:00 07/21/18 09:38 Norvasc PO 5 mg DAILY [facility] Administration Atovaquone 750 mg 07/18/18 18:00 07/21/18 09:38 Mepron PO 750 mg BID [facility] Administration Protocol Docusate Sodium 100 mg 07/13/18 18:00 07/21/18 09:36 Colace PO Not Given BID [facility] Famotidine 20 mg 07/17/18 10:00 07/21/18 09:39 Pepcid IVP 20 mg DAILY [facility] Administration Fluoxetine HCl 20 mg 07/17/18 10:00 07/21/18 09:39 Prozac PO 20 mg DAILY [facility] Administration Heparin Sodium (Porcine) 5,000 units 07/18/18 08:00 07/21/18 09:37 Heparin SC 5,000 units Q12H [facility] Administration Hydromorphone HCl 0.5 mg 07/19/18 03:39 07/21/18 07:52 Dilaudid IVP 0.5 mg Q8H PRN Administration Pain, severe (8-10) Doxycycline Hyclate 100 mg/ 100 mls @ 100 mls/hr 07/18/18 10:00 07/21/18 09:39 Sodium Chloride IVPB 100 mls/hr Q12H [facility] Administration Protocol Lidocaine 1 ea 07/14/18 17:32 07/21/18 09:37 Lidoderm TD 1 ea DAILY [facility] Administration Methylprednisolone 40 mg 07/20/18 10:00 07/21/18 09:39 Solu-Medrol IVP 40 mg Q12 [facility] Administration Metoprolol Tartrate 50 mg 07/16/18 10:00 07/21/18 12:23 Lopressor PO Not Given BID [facility] Oxycodone HCl 5 mg 07/20/18 20:07 07/21/18 14:03 Oxycodone Immediate Release Tab PO 5 mg Q6 PRN Administration Pain, moderate (4-7) Potassium Chloride 40 meq 07/17/18 22:01 07/21/18 12:24 K-Dur 20 Meq Er Tab PO Not Given BRK [facility] - Patient Studies Lab Studies: Lab Studies 07/21/18 07/21/18 07/21/18 Range/Units 10:00 10:00 05:46 Sodium 136 (132-148) mmol/L Potassium 4.6 (3.6-5.2) mmol/L Chloride 101 (98-107) mmol/L Carbon Dioxide 25 (22-30) mmol/L Anion Gap 14 (10-20) BUN 31 H (7-17) mg/dL Creatinine 0.8 (0.7-1.2) mg/dL Est GFR ( Amer) > 60 Est GFR (Non-Af Amer) > 60 Random Glucose 139 H (65-105) mg/dL Calcium 9.0 (8.6-10.4) mg/dl Total Bilirubin 0.3 (0.2-1.3) mg/dL AST 28 (14-36) U/L ALT 41 (9-52) U/L Alkaline Phosphatase 209 H (38-126) U/L Lactate Dehydrogenase 755 H (313-618) U/L Total Protein 6.2 L (6.3-8.3) g/dL Albumin 3.3 L (3.5-5.0) g/dL Globulin 2.9 (2.2-3.9) gm/dL Albumin/Globulin Ratio 1.2 (1.0-2.1) Procalcitonin 0.10 L (0.19-0.49) NG/ML LISA 6 Profile (NEGATIVE) LISA Titer LISA Pattern 07/18/18 Range/Units 18:32 Sodium (132-148) mmol/L Potassium (3.6-5.2) mmol/L Chloride (98-107) mmol/L Carbon Dioxide (22-30) mmol/L Anion Gap (10-20) BUN (7-17) mg/dL Creatinine (0.7-1.2) mg/dL Est GFR ( Amer) Est GFR (Non-Af Amer) Random Glucose (65-105) mg/dL Calcium (8.6-10.4) mg/dl Total Bilirubin (0.2-1.3) mg/dL AST (14-36) U/L ALT (9-52) U/L Alkaline Phosphatase (38-126) U/L Lactate Dehydrogenase (313-618) U/L Total Protein (6.3-8.3) g/dL Albumin (3.5-5.0) g/dL Globulin (2.2-3.9) gm/dL Albumin/Globulin Ratio (1.0-2.1) Procalcitonin (0.19-0.49) NG/ML LISA 6 Profile Positive H (NEGATIVE) LISA Titer 1:40 H LISA Pattern Speckled H Laboratory Results - last 24 hr 07/18/18 07/21/18 07/21/18 18:32 05:46 10:00 Sodium 136 Potassium 4.6 Chloride 101 Carbon Dioxide 25 Anion Gap 14 BUN 31 H Creatinine 0.8 Est GFR ( Amer) > 60 Est GFR (Non-Af Amer) > 60 Random Glucose 139 H Calcium 9.0 Total Bilirubin 0.3 AST 28 ALT 41 Alkaline Phosphatase 209 H Lactate Dehydrogenase Total Protein 6.2 L Albumin 3.3 L Globulin 2.9 Albumin/Globulin Ratio 1.2 Procalcitonin 0.10 L LISA 6 Profile Positive H LISA Titer 1:40 H LISA Pattern Speckled H 07/21/18 10:00 Sodium Potassium Chloride Carbon Dioxide Anion Gap BUN Creatinine Est GFR ( Amer) Est GFR (Non-Af Amer) Random Glucose Calcium Total Bilirubin AST ALT Alkaline Phosphatase Lactate Dehydrogenase 755 H Total Protein Albumin Globulin Albumin/Globulin Ratio Procalcitonin LISA 6 Profile LISA Titer LISA Pattern Critical Care Progress Note - Nutrition Nutrition: Nutrition Category Date Time Status Heart Healthy Diet [DIET] Diets 07/20/18 Lunch Active Assessment/Plan (1) Respiratory insufficiency/failure Current Visit: Yes Status: Acute Attending/Attestation - Attestation I have personally seen and examined this patient.: Yes I have fully participated in the care of the patient.: Yes I have reviewed all pertinent clinical information: Yes Notes (Text): 07/21/18 18:24 Patient seen and examined in the intensive care unit. Case discussed with housestaff in the morning rounds. Condition slowly improving Continue with antibiotics and steroids Continue with ICU observation Elevated ESR and positive LISA Normal procalcitonin level
[2018-07-21 10:13] LABS: ANA PATTERN SPECKLED
[2018-07-21] MEDS: Potassium Chloride 20 mEq ER Tab PO SCH (12:24)
[2018-07-21] MEDS: oxyCODONE 5 mg Immediate Release Tab PO PRN ×2 (14:03→22:15)
--- NOTE | 2018-07-21 16:07 | CP.PCM.PN ---
Subjective - Date & Time of Evaluation Date of Evaluation: 07/21/18 Time of Evaluation: 10:30 - Subjective Subjective: patient examined today no nausea no vomiting no dizziness no diarrhea no fever no shortness of breath Objective - Vital Signs/Intake and Output Vital Signs (last 24 hours): Temp Pulse Resp BP Pulse Ox 98.6 F 72 25 H 139/65 96 07/21/18 12:00 07/21/18 15:03 07/21/18 15:03 07/21/18 15:03 07/21/18 15:03 Intake and Output: 07/21/18 07/21/18 06:59 18:59 Intake Total 700 460 Output Total 600 10 Balance 100 450 - Medications Medications: Current Medications Albuterol/Ipratropium (Duoneb 3 Mg/0.5 Mg (3 Ml) Ud) 3 ml INH RQ4 [facility] Last Admin: 07/21/18 15:37 Dose: 3 ml Amlodipine Besylate (Norvasc) 5 mg PO DAILY [facility] Last Admin: 07/21/18 09:38 Dose: 5 mg Atovaquone (Mepron) 750 mg PO BID [facility]; Protocol Last Admin: 07/21/18 09:38 Dose: 750 mg Docusate Sodium (Colace) 100 mg PO BID [facility] Last Admin: 07/21/18 09:36 Dose: Not Given Famotidine (Pepcid) 20 mg IVP DAILY [facility] Last Admin: 07/21/18 09:39 Dose: 20 mg Fluoxetine HCl (Prozac) 20 mg PO DAILY [facility] Last Admin: 07/21/18 09:39 Dose: 20 mg Heparin Sodium (Porcine) (Heparin) 5,000 units SC Q12H [facility] Last Admin: 07/21/18 09:37 Dose: 5,000 units Hydromorphone HCl (Dilaudid) 0.5 mg IVP Q8H PRN PRN Reason: Pain, severe (8-10) Last Admin: 07/21/18 07:52 Dose: 0.5 mg Doxycycline Hyclate 100 mg/ (Sodium Chloride) 100 mls @ 100 mls/hr IVPB Q12H [facility]; Protocol Last Admin: 07/21/18 09:39 Dose: 100 mls/hr Lidocaine (Lidoderm) 1 ea TD DAILY [facility] Last Admin: 07/21/18 09:37 Dose: 1 ea Methylprednisolone (Solu-Medrol) 40 mg IVP Q12 [facility] Last Admin: 07/21/18 09:39 Dose: 40 mg Metoprolol Tartrate (Lopressor) 50 mg PO BID [facility] Last Admin: 07/21/18 12:23 Dose: Not Given Oxycodone HCl (Oxycodone Immediate Release Tab) 5 mg PO Q6 PRN PRN Reason: Pain, moderate (4-7) Last Admin: 07/21/18 14:03 Dose: 5 mg Potassium Chloride (K-Dur 20 Meq Er Tab) 40 meq PO BRK [facility] Last Admin: 07/21/18 12:24 Dose: Not Given - Labs Labs: 07/20/18 06:09 07/21/18 05:46 - Constitutional Appears: Well - Head Exam Head Exam: ATRAUMATIC, NORMAL INSPECTION, NORMOCEPHALIC - Eye Exam Eye Exam: EOMI, Normal appearance, PERRL Pupil Exam: NORMAL ACCOMODATION, PERRL - ENT Exam ENT Exam: Mucous Membranes Moist, Normal Exam - Neck Exam Neck Exam: Full ROM, Normal Inspection. absent: Lymphadenopathy - Respiratory Exam Respiratory Exam: Decreased Breath Sounds - Cardiovascular Exam Cardiovascular Exam: REGULAR RHYTHM, +S1, +S2 - GI/Abdominal Exam GI & Abdominal Exam: Soft, Diminished Bowel Sounds - Rectal Exam Rectal Exam: Deferred - Neurological Exam Neurological Exam: Oriented x3 Assessment and Plan - Assessment and Plan (Free Text) Plan: plan discussed with patient and family moderate complexity of care colace dilauid doxycycline hyclate duoneb heparin k-dur lidoderm lopressor mepron norvasc oxycodone IR tab pepcid prozac solu-medrol medications reviewed labs reviewed vitals reviewed
[2018-07-22] MEDS: HYDROmorphone 0.5 mg/0.5 ml ISec IVP PRN ×3 (04:20→20:56)
[2018-07-22] MEDS: Albuterol-Ipratrop 3 mg / 0.5 (3 ml) UD INH SCH ×5 (04:31→19:57)
[2018-07-22 06:15] LABS: BASO % 0.1 % (0.0-2.0); EOS % 0.1 % (0.0-4.0); HEMOGLOBIN 9.7 g/dL (11.0-16.0); LYMPH # 2.4 K/uL (1.0-4.3); LYMPH % 13.8 % (20.0-40.0); MEAN CELL VOLUME 88.5 fL (81.0-99.0); MEAN CORPUSCULAR HEMOGLOBIN 29.3 pg (27.0-31.0); MEAN CORPUSCULAR HGB CONC 33.1 g/dL (33.0-37.0); MEAN PLATELET VOLUME 9.1 fL (7.2-11.7); MONO # 0.8 K/uL (0.0-0.8); MONO % 4.5 % (0.0-10.0); NEUT # 13.9 K/uL (1.8-7.0); NEUT % 81.5 % (50.0-75.0); RBC 3.29 Mil/uL (3.80-5.20); RED CELL DISTRIBUTION WIDTH 13.1 % (11.5-14.5); WHITE BLOOD COUNT 17.1 K/uL (4.8-10.8)
[2018-07-22 06:39] LABS: ALBUMIN 3.2 g/dL (3.5-5.0); ALT/SGPT 81 U/L (9-52); AST/SGOT 40 U/L (14-36); BLOOD UREA NITROGEN 27 mg/dL (7-17); CALCIUM 8.9 mg/dl (8.6-10.4); GFR NON-AFRICAN AMERICAN > 60
[2018-07-22] MEDS: Potassium Chloride 20 mEq ER Tab PO SCH (09:49)
[2018-07-22] MEDS: Lidocaine 5% Patch TD SCH (10:18)
[2018-07-22] MEDS: Atovaquone 750 mg/5 ml Susp UD PO SCH ×2 (10:19→17:51)
[2018-07-22] MEDS: MethylPREDNISolone 40 mg Vial IVP SCH ×2 (10:20→21:08)
--- NOTE | 2018-07-22 10:32 | CP.CCUPN ---
<Fausto Chase - Last Filed: 07/22/18 10:27> CCU Subjective - Physician Review Subjective (Free Text): 07/22/18 10:27 Fausto Chase PGY1 Progress Note for Dr. Dewey Patient was examined at bedside this morning. She continues to complain of pain in the abdomen near the surgical site. She complains of dizziness when standing up and moving to seat. She feels nauseous but is able to tolerate ensure. CCU Objective - Vital Signs / Intake & Output Vital Signs (Last 4 hours): Vital Signs Temp Pulse Resp BP Pulse Ox 07/22/18 08:03 58 L 18 129/75 100 07/22/18 08:00 98.0 F 59 L 17 100 07/22/18 07:03 60 16 116/63 100 07/22/18 07:00 57 L 17 100 Intake and Output (Last 8hrs): Intake & Output 07/21/18 07/22/18 07/22/18 22:59 06:59 14:59 Intake Total 760 550 0 Output Total 865 805 Balance -105 -255 0 Weight 51.619 kg Intake: Intake, IV Amount 100 Left Forearm 100 Oral 660 550 0 Output: Drainage 15 5 Right Abdomen 15 5 Urine 850 800 Urine, Voided 850 800 Other: # Bowel Movements 0 - Physical Exam Head: Positive for: Atraumatic, Normocephalic Pupils: Positive for: PERRL Extroacular Muscles: Positive for: EOMI Conjunctiva: Positive for: Normal Mouth: Positive for: Moist Mucous Membranes Neck: Positive for: Normal Range of Motion Respiratory/Chest: Positive for: Decreased Breath Sounds. Negative for: Respiratory Distress, Accessory Muscle Use, Wheezes Cardiovascular: Positive for: Regular Rate and Rhythm, Normal S1, S2. Negative for: Murmurs, Rub, Gallop Abdomen: Positive for: Normal Bowel Sounds, Other (surgical site clean/dry/intact). Negative for: Tenderness, Distention, Peritoneal Signs Genitourinary/Pelvic Exam: Positive for: Other (vega in place draining clear yellow liquid) Upper Extremity: Positive for: Normal Inspection. Negative for: Cyanosis, Edema Lower Extremity: Positive for: Normal Inspection. Negative for: Edema Neurological: Positive for: GCS=15, CN II-XII Intact, Speech Normal Skin: Positive for: Warm, Normal Color. Negative for: Dry, Rashes Psychiatric: Positive for: Alert, Oriented x 3, Normal Insight, Normal Concentration - Medications Active Medications: Active Medications Generic Name Dose Route Start Last Admin Trade Name Freq PRN Reason Stop Dose Admin Albuterol/Ipratropium 3 ml 07/15/18 20:00 07/22/18 07:54 Duoneb 3 Mg/0.5 Mg (3 Ml) Ud INH 3 ml RQ4 [facility] Administration Amlodipine Besylate 5 mg 07/16/18 10:00 07/22/18 10:19 Norvasc PO 5 mg DAILY [facility] Administration Atovaquone 750 mg 07/18/18 18:00 07/22/18 10:19 Mepron PO 750 mg BID [facility] Administration Protocol Docusate Sodium 100 mg 07/13/18 18:00 07/22/18 10:17 Colace PO Not Given BID [facility] Famotidine 20 mg 07/22/18 10:00 07/22/18 10:19 Pepcid PO 20 mg DAILY [facility] Administration Fluoxetine HCl 20 mg 07/17/18 10:00 07/22/18 10:19 Prozac PO 20 mg DAILY [facility] Administration Heparin Sodium (Porcine) 5,000 units 07/18/18 08:00 07/22/18 10:18 Heparin SC 5,000 units Q12H [facility] Administration Hydromorphone HCl 0.5 mg 07/19/18 03:39 07/22/18 04:20 Dilaudid IVP 0.5 mg Q8H PRN Administration Pain, severe (8-10) Doxycycline Hyclate 100 mg/ 100 mls @ 100 mls/hr 07/18/18 10:00 07/21/18 22:19 Sodium Chloride IVPB 100 mls/hr Q12H [facility] Administration Protocol Lidocaine 1 ea 07/14/18 17:32 07/22/18 10:18 Lidoderm TD 1 ea DAILY [facility] Administration Methylprednisolone 40 mg 07/20/18 10:00 07/22/18 10:20 Solu-Medrol IVP 40 mg Q12 [facility] Administration Metoprolol Tartrate 25 mg 07/22/18 10:00 07/22/18 10:18 Lopressor PO Not Given BID [facility] Oxycodone HCl 5 mg 07/20/18 20:07 07/21/18 22:15 Oxycodone Immediate Release Tab PO 5 mg Q6 PRN Administration Pain, moderate (4-7) - Patient Studies Lab Studies: Lab Studies 07/22/18 07/22/18 07/21/18 Range/Units 06:08 06:06 10:00 WBC 17.1 H (4.8-10.8) K/uL RBC 3.29 L (3.80-5.20) Mil/uL Hgb 9.7 L (11.0-16.0) g/dL Hct 29.2 L (34.0-47.0) % MCV 88.5 (81.0-99.0) fL MCH 29.3 (27.0-31.0) pg MCHC 33.1 (33.0-37.0) g/dL RDW 13.1 (11.5-14.5) % Plt Count 435 H D (130-400) K/uL MPV 9.1 (7.2-11.7) fL Neut % (Auto) 81.5 H (50.0-75.0) % Lymph % (Auto) 13.8 L (20.0-40.0) % Weakley % (Auto) 4.5 (0.0-10.0) % Eos % (Auto) 0.1 (0.0-4.0) % Baso % (Auto) 0.1 (0.0-2.0) % Neut # (Auto) 13.9 H (1.8-7.0) K/uL Lymph # (Auto) 2.4 (1.0-4.3) K/uL Weakley # (Auto) 0.8 (0.0-0.8) K/uL Eos # (Auto) 0.0 (0.0-0.7) K/uL Baso # (Auto) 0.0 (0.0-0.2) K/uL Sodium 135 (132-148) mmol/L Potassium 4.6 (3.6-5.2) mmol/L Chloride 99 (98-107) mmol/L Carbon Dioxide 27 (22-30) mmol/L Anion Gap 14 (10-20) BUN 27 H (7-17) mg/dL Creatinine 0.7 (0.7-1.2) mg/dL Est GFR ( Amer) > 60 Est GFR (Non-Af Amer) > 60 Random Glucose 144 H (65-105) mg/dL Calcium 8.9 (8.6-10.4) mg/dl Total Bilirubin 0.3 (0.2-1.3) mg/dL AST 40 H D (14-36) U/L ALT 81 H D (9-52) U/L Alkaline Phosphatase 312 H D (38-126) U/L Total Protein 6.4 (6.3-8.3) g/dL Albumin 3.2 L (3.5-5.0) g/dL Globulin 3.1 (2.2-3.9) gm/dL Albumin/Globulin Ratio 1.0 (1.0-2.1) Procalcitonin 0.10 L (0.19-0.49) NG/ML Laboratory Results - last 24 hr 07/21/18 07/22/18 07/22/18 10:00 06:06 06:08 WBC 17.1 H RBC 3.29 L Hgb 9.7 L Hct 29.2 L MCV 88.5 MCH 29.3 MCHC 33.1 RDW 13.1 Plt Count 435 H D MPV 9.1 Neut % (Auto) 81.5 H Lymph % (Auto) 13.8 L Weakley % (Auto) 4.5 Eos % (Auto) 0.1 Baso % (Auto) 0.1 Neut # (Auto) 13.9 H Lymph # (Auto) 2.4 Weakley # (Auto) 0.8 Eos # (Auto) 0.0 Baso # (Auto) 0.0 Sodium 135 Potassium 4.6 Chloride 99 Carbon Dioxide 27 Anion Gap 14 BUN 27 H Creatinine 0.7 Est GFR ( Amer) > 60 Est GFR (Non-Af Amer) > 60 Random Glucose 144 H Calcium 8.9 Total Bilirubin 0.3 AST 40 H D ALT 81 H D Alkaline Phosphatase 312 H D Total Protein 6.4 Albumin 3.2 L Globulin 3.1 Albumin/Globulin Ratio 1.0 Procalcitonin 0.10 L Review of Systems - Review of Systems Review of Systems: 12 point ROS performed and negative other than what is stated in HPI Critical Care Progress Note - Nutrition Nutrition: Nutrition Category Date Time Status Heart Healthy Diet [DIET] Diets 07/20/18 Lunch Active Assessment/Plan - Assessment and Plan (Free Text) Assessment: Patient is a 58yo F with PMH HTN, colostomy, depression who presented to ED for colostomy reversal. S/p Laparotomy, extensive lysis of adhesions, colon resection, rectal resection, primary anastomosis of colon and rectum, rectal foreign body removal, myomectomy, cholecystectomy, and OnQ placement POD #9. ICU consulted for [facility] due to hypoxia. Patient now on nasal cannula. Plan: Neuro: - AAOx3 - GSC 15 - no focal deficits Cardiovascular: - h/o HTN - ECHO: diastolic dysfunction, MR, pulmonary HTN. EF >70%. - norvasc - decreased lopressor to 25mg BID - maintain normotension Pulm: - off high flow, sating well on nasal cannula - duonebs q4h - CXR: dense confluent consolidative opacification in R upper to mid lung and b/l lung bases. fluid overload. 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 Likely downgrade tomorrow if pt continues to clinically improve. Patient seen and case discussed with Dr. Dewey <Eleno Dewey - Last Filed: 07/22/18 16:13> CCU Subjective - Physician Review Critical Care Time Spent (in minutes): 40 CCU Objective - Vital Signs / Intake & Output Vital Signs (Last 4 hours): Vital Signs Pulse Resp BP Pulse Ox 07/22/18 13:03 74 28 H 160/89 H 100 07/22/18 13:00 72 26 H 100 Intake and Output (Last 8hrs): Intake & Output 07/22/18 07/22/18 07/22/18 06:59 14:59 22:59 Intake Total 550 700 Output Total 805 201 Balance -255 499 Weight 113 lb 12.8 oz Intake: Intake, IV Amount 100 Left Hand 100 Oral 550 600 Output: Drainage 5 Right Abdomen 5 Urine 800 201 Urine, Voided 800 201 Other: # Bowel Movements 0 1 - Medications Active Medications: Active Medications Generic Name Dose Route Start Last Admin Trade Name Freq PRN Reason Stop Dose Admin Albuterol/Ipratropium 3 ml 07/15/18 20:00 07/22/18 11:13 Duoneb 3 Mg/0.5 Mg (3 Ml) Ud INH 3 ml RQ4 [facility] Administration Amlodipine Besylate 5 mg 07/16/18 10:00 07/22/18 10:19 Norvasc PO 5 mg DAILY [facility] Administration Atovaquone 750 mg 07/18/18 18:00 07/22/18 10:19 Mepron PO 750 mg BID [facility] Administration Protocol Docusate Sodium 100 mg 07/13/18 18:00 07/22/18 10:17 Colace PO Not Given BID [facility] Famotidine 20 mg 07/22/18 10:00 07/22/18 10:19 Pepcid PO 20 mg DAILY [facility] Administration Fluoxetine HCl 20 mg 07/17/18 10:00 07/22/18 10:19 Prozac PO 20 mg DAILY [facility] Administration Heparin Sodium (Porcine) 5,000 units 07/18/18 08:00 07/22/18 10:18 Heparin SC 5,000 units Q12H [facility] Administration Hydromorphone HCl 0.5 mg 07/19/18 03:39 07/22/18 13:56 Dilaudid IVP 0.5 mg Q8H PRN Administration Pain, severe (8-10) Doxycycline Hyclate 100 mg/ 100 mls @ 100 mls/hr 07/18/18 10:00 07/22/18 11:23 Sodium Chloride IVPB 100 mls/hr Q12H [facility] Administration Protocol Lidocaine 1 ea 07/14/18 17:32 07/22/18 10:18 Lidoderm TD 1 ea DAILY [facility] Administration Methylprednisolone 40 mg 07/20/18 10:00 07/22/18 10:20 Solu-Medrol IVP 40 mg Q12 [facility] Administration Metoprolol Tartrate 25 mg 07/22/18 10:00 07/22/18 10:18 Lopressor PO Not Given BID [facility] Oxycodone HCl 5 mg 07/20/18 20:07 07/22/18 10:37 Oxycodone Immediate Release Tab PO 5 mg Q6 PRN Administration Pain, moderate (4-7) - Patient Studies Lab Studies: Lab Studies 07/22/18 07/22/18 07/19/18 Range/Units 06:08 06:06 18:04 WBC 17.1 H (4.8-10.8) K/uL RBC 3.29 L (3.80-5.20) Mil/uL Hgb 9.7 L (11.0-16.0) g/dL Hct 29.2 L (34.0-47.0) % MCV 88.5 (81.0-99.0) fL MCH 29.3 (27.0-31.0) pg MCHC 33.1 (33.0-37.0) g/dL RDW 13.1 (11.5-14.5) % Plt Count 435 H D (130-400) K/uL MPV 9.1 (7.2-11.7) fL Neut % (Auto) 81.5 H (50.0-75.0) % Lymph % (Auto) 13.8 L (20.0-40.0) % Weakley % (Auto) 4.5 (0.0-10.0) % Eos % (Auto) 0.1 (0.0-4.0) % Baso % (Auto) 0.1 (0.0-2.0) % Neut # (Auto) 13.9 H (1.8-7.0) K/uL Lymph # (Auto) 2.4 (1.0-4.3) K/uL Weakley # (Auto) 0.8 (0.0-0.8) K/uL Eos # (Auto) 0.0 (0.0-0.7) K/uL Baso # (Auto) 0.0 (0.0-0.2) K/uL Sodium 135 (132-148) mmol/L Potassium 4.6 (3.6-5.2) mmol/L Chloride 99 (98-107) mmol/L Carbon Dioxide 27 (22-30) mmol/L Anion Gap 14 (10-20) BUN 27 H (7-17) mg/dL Creatinine 0.7 (0.7-1.2) mg/dL Est GFR ( Amer) > 60 Est GFR (Non-Af Amer) > 60 Random Glucose 144 H (65-105) mg/dL Calcium 8.9 (8.6-10.4) mg/dl Total Bilirubin 0.3 (0.2-1.3) mg/dL AST 40 H D (14-36) U/L ALT 81 H D (9-52) U/L Alkaline Phosphatase 312 H D (38-126) U/L Total Protein 6.4 (6.3-8.3) g/dL Albumin 3.2 L (3.5-5.0) g/dL Globulin 3.1 (2.2-3.9) gm/dL Albumin/Globulin Ratio 1.0 (1.0-2.1) Absolute Lymphs (Flow) 2088 (850-3900) Cells/mcL % CD4 Cells 37 (30-61) Percent Absolute CD4 Count 764 (490-1740) Cells/mcL T-Help/Suppress Ratio 2.90 (0.86-5.00) Ratio % CD8 Cells 13 (12-42) Percent Absolute CD8 Count 264 (180-1170) Cells/mcL Laboratory Results - last 24 hr 07/19/18 07/22/18 07/22/18 18:04 06:06 06:08 WBC 17.1 H RBC 3.29 L Hgb 9.7 L Hct 29.2 L MCV 88.5 MCH 29.3 MCHC 33.1 RDW 13.1 Plt Count 435 H D MPV 9.1 Neut % (Auto) 81.5 H Lymph % (Auto) 13.8 L Weakley % (Auto) 4.5 Eos % (Auto) 0.1 Baso % (Auto) 0.1 Neut # (Auto) 13.9 H Lymph # (Auto) 2.4 Weakley # (Auto) 0.8 Eos # (Auto) 0.0 Baso # (Auto) 0.0 Sodium 135 Potassium 4.6 Chloride 99 Carbon Dioxide 27 Anion Gap 14 BUN 27 H Creatinine 0.7 Est GFR ( Amer) > 60 Est GFR (Non-Af Amer) > 60 Random Glucose 144 H Calcium 8.9 Total Bilirubin 0.3 AST 40 H D ALT 81 H D Alkaline Phosphatase 312 H D Total Protein 6.4 Albumin 3.2 L Globulin 3.1 Albumin/Globulin Ratio 1.0 Absolute Lymphs (Flow) 2088 % CD4 Cells 37 Absolute CD4 Count 764 T-Help/Suppress Ratio 2.90 % CD8 Cells 13 Absolute CD8 Count 264 Critical Care Progress Note - Nutrition Nutrition: Nutrition Category Date Time Status Heart Healthy Diet [DIET] Diets 07/20/18 Lunch Active Assessment/Plan (1) Respiratory insufficiency/failure Current Visit: Yes Status: Acute Attending/Attestation - Attestation I have personally seen and examined this patient.: Yes I have fully participated in the care of the patient.: Yes I have reviewed all pertinent clinical information: Yes Notes (Text): 07/22/18 16:11 Patient seen and examined in the intensive care unit. Case discussed with housestaff in the morning rounds. Patient is off high flow oxygen and saturating well on nasal cannula Able to walk Continue antibiotics Continue with the steroids
[2018-07-22] MEDS: oxyCODONE 5 mg Immediate Release Tab PO PRN (10:37)
[2018-07-22 11:10] LABS: % CD4 (T HELPER CELL) 37 Percent (30-61); % CD8 (SUPPRESSOR T CELL) 13 Percent (12-42); ABSOLUTE CD4 CELLS 764 Cells/mcL (490-1740); ABSOLUTE CD8 CELLS 264 Cells/mcL (180-1170); ABSOLUTE LYMPHOCYTES 2088 Cells/mcL (850-3900)
--- NOTE | 2018-07-22 12:56 | CP.PCM.PN ---
<SeleneJignesh cee - Last Filed: 07/22/18 12:54> Subjective - Date & Time of Evaluation Date of Evaluation: 07/22/18 Time of Evaluation: 12:54 - Subjective Subjective: Surgery Progress note. Dr. Gavin Pt seen and examined at bedside. No acute events overnight. Reports having regular BMs and passing flatus. Still reports Abdominal pain katey-incisionally and it is controlled on current regimen. Denies any new complaints. No N/V/D. No F/C. No CP/SOB. Objective - Vital Signs/Intake and Output Vital Signs (last 24 hours): Temp Pulse Resp BP Pulse Ox 98.1 F 70 26 H 157/80 H 100 07/22/18 12:00 07/22/18 12:03 07/22/18 12:03 07/22/18 12:03 07/22/18 12:03 Intake and Output: 07/22/18 07/22/18 06:59 18:59 Intake Total 950 460 Output Total 1270 200 Balance -320 260 - Medications Medications: Current Medications Albuterol/Ipratropium (Duoneb 3 Mg/0.5 Mg (3 Ml) Ud) 3 ml INH RQ4 ON [facility] OF [facility] Last Admin: 07/22/18 11:13 Dose: 3 ml Amlodipine Besylate (Norvasc) 5 mg PO DAILY ON [facility] OF [facility] Last Admin: 07/22/18 10:19 Dose: 5 mg Atovaquone (Mepron) 750 mg PO BID ON [facility] OF [facility]; Protocol Last Admin: 07/22/18 10:19 Dose: 750 mg Docusate Sodium (Colace) 100 mg PO BID [facility] OF [facility] Last Admin: 07/22/18 10:17 Dose: Not Given Famotidine (Pepcid) 20 mg PO DAILY [facility] Last Admin: 07/22/18 10:19 Dose: 20 mg Fluoxetine HCl (Prozac) 20 mg PO DAILY [facility] Last Admin: 07/22/18 10:19 Dose: 20 mg Heparin Sodium (Porcine) (Heparin) 5,000 units SC Q12H ON [facility] OF [facility] Last Admin: 07/22/18 10:18 Dose: 5,000 units Hydromorphone HCl (Dilaudid) 0.5 mg IVP Q8H PRN PRN Reason: Pain, severe (8-10) Last Admin: 07/22/18 04:20 Dose: 0.5 mg Doxycycline Hyclate 100 mg/ (Sodium Chloride) 100 mls @ 100 mls/hr IVPB Q12H [facility]; Protocol Last Admin: 07/22/18 11:23 Dose: 100 mls/hr Lidocaine (Lidoderm) 1 ea TD DAILY [facility] Last Admin: 07/22/18 10:18 Dose: 1 ea Methylprednisolone (Solu-Medrol) 40 mg IVP Q12 [facility] Last Admin: 07/22/18 10:20 Dose: 40 mg Metoprolol Tartrate (Lopressor) 25 mg PO BID [facility] Last Admin: 07/22/18 10:18 Dose: Not Given Oxycodone HCl (Oxycodone Immediate Release Tab) 5 mg PO Q6 PRN PRN Reason: Pain, moderate (4-7) Last Admin: 07/22/18 10:37 Dose: 5 mg - Labs Labs: 07/22/18 06:06 07/22/18 06:08 - Constitutional Appears: Well, Non-toxic, No Acute Distress - Head Exam Head Exam: ATRAUMATIC, NORMAL INSPECTION, NORMOCEPHALIC - Eye Exam Eye Exam: EOMI, Normal appearance. absent: Scleral icterus - ENT Exam ENT Exam: Mucous Membranes Moist - Respiratory Exam Respiratory Exam: NORMAL BREATHING PATTERN. absent: Accessory Muscle Use, Respiratory Distress - Cardiovascular Exam Cardiovascular Exam: RRR. absent: JVD - GI/Abdominal Exam GI & Abdominal Exam: Soft. absent: Distended, Firm, Guarding, Rigid, Rebound Additional comments: Katey-incisional tenderness. Dressing clean, dry and intact. - Extremities Exam Extremities Exam: Normal Inspection. absent: Calf Tenderness - Neurological Exam Neurological Exam: Alert, Awake, Oriented x3 - Psychiatric Exam Psychiatric exam: Normal Affect, Normal Mood - Skin Skin Exam: Dry, Intact, Normal Color, Warm Assessment and Plan - Assessment and Plan (Free Text) Assessment: 58yo F s/p laparotomy, extensive LARISSA, colon & rectal resection, w/ primary anastomosis, myomectomy, cholecystectomy, POD#9 Plan: - Continue diet - Pain control - Cleared for discharge home from surgery standpoint - Will discuss case with Dr. Lexie Castillo regarding transfer to medical service - f/u pulm recs - Encourage OOBTC and Ambulation - Continue Fabrice to self suction - Upon discharge, patient may follow up with Dr. Gavin, in office. Call for appointment. - Further recs as per Dr. Romaine Morton PGY2 surgery <Dieter Gavin - Last Filed: 07/25/18 20:17> Objective - Vital Signs/Intake and Output Vital Signs (last 24 hours): Temp Pulse Resp BP Pulse Ox 98.3 F 76 20 138/76 99 07/23/18 16:00 07/23/18 16:00 07/23/18 16:00 07/23/18 17:36 07/23/18 16:00 - Labs Labs: 07/23/18 06:10 07/23/18 06:14 Attending/Attestation - Attestation I have fully participated in the care of the patient.: Yes I have reviewed all pertinent clinical information, including history, physical exam and plan: Yes Notes (Text): Pt is improved clinically No further general surgical follow up is required f.u as out pt Plan d.w pt in detail.
--- NOTE | 2018-07-22 20:34 | CP.PCM.PN ---
Subjective - Date & Time of Evaluation Date of Evaluation: 07/22/18 - Subjective Subjective: patient examined today no nausea, no diarrhea, no fever, no vomiting, no dizziness no dshortness of breath Objective - Vital Signs/Intake and Output Vital Signs (last 24 hours): Temp Pulse Resp BP Pulse Ox 98.3 F 74 23 140/80 100 07/22/18 16:00 07/22/18 19:03 07/22/18 19:03 07/22/18 19:03 07/22/18 19:03 Intake and Output: 07/22/18 07/23/18 18:59 06:59 Intake Total 1060 Output Total 651 5 Balance 409 -5 - Medications Medications: Current Medications Albuterol/Ipratropium (Duoneb 3 Mg/0.5 Mg (3 Ml) Ud) 3 ml INH RQ4 ON [facility] OF [facility] Last Admin: 07/22/18 19:57 Dose: 3 ml Amlodipine Besylate (Norvasc) 5 mg PO DAILY ON [facility] Last Admin: 07/22/18 10:19 Dose: 5 mg Atovaquone (Mepron) 750 mg PO BID ON [facility]; Protocol Last Admin: 07/22/18 17:51 Dose: 750 mg Docusate Sodium (Colace) 100 mg PO BID ON [facility] OF [facility] Last Admin: 07/22/18 17:37 Dose: Not Given Famotidine (Pepcid) 20 mg PO DAILY ON [facility] Last Admin: 07/22/18 10:19 Dose: 20 mg Fluoxetine HCl (Prozac) 20 mg PO DAILY [facility] Last Admin: 07/22/18 10:19 Dose: 20 mg Heparin Sodium (Porcine) (Heparin) 5,000 units SC Q12H ON [facility] OF [facility] Last Admin: 07/22/18 10:18 Dose: 5,000 units Hydromorphone HCl (Dilaudid) 0.5 mg IVP Q8H PRN PRN Reason: Pain, severe (8-10) Last Admin: 07/22/18 13:56 Dose: 0.5 mg Doxycycline Hyclate 100 mg/ (Sodium Chloride) 100 mls @ 100 mls/hr IVPB Q12H S ; Protocol Last Admin: 07/22/18 11:23 Dose: 100 mls/hr Lidocaine (Lidoderm) 1 ea TD DAILY ON [facility] Last Admin: 07/22/18 10:18 Dose: 1 ea Methylprednisolone (Solu-Medrol) 40 mg IVP Q12 ON [facility] OF [facility] Last Admin: 07/22/18 10:20 Dose: 40 mg Metoprolol Tartrate (Lopressor) 25 mg PO BID ON [facility] OF [facility] Last Admin: 07/22/18 17:37 Dose: Not Given Oxycodone HCl (Oxycodone Immediate Release Tab) 5 mg PO Q6 PRN PRN Reason: Pain, moderate (4-7) Last Admin: 07/22/18 10:37 Dose: 5 mg - Labs Labs: 07/22/18 06:06 07/22/18 06:08 - Constitutional Appears: Well - Head Exam Head Exam: ATRAUMATIC, NORMAL INSPECTION, NORMOCEPHALIC - Eye Exam Eye Exam: EOMI, Normal appearance, PERRL Pupil Exam: NORMAL ACCOMODATION, PERRL - ENT Exam ENT Exam: Mucous Membranes Moist, Normal Exam - Neck Exam Neck Exam: Full ROM, Normal Inspection. absent: Lymphadenopathy - Respiratory Exam Respiratory Exam: Decreased Breath Sounds - Cardiovascular Exam Cardiovascular Exam: REGULAR RHYTHM, +S1, +S2 - GI/Abdominal Exam GI & Abdominal Exam: Soft, Diminished Bowel Sounds - Rectal Exam Rectal Exam: Deferred - Neurological Exam Neurological Exam: Oriented x3 Assessment and Plan - Assessment and Plan (Free Text) Plan: plan discussed with patient and family moderate complexity of care medications reviewed labs reviewed vitals reviewed colace dilauid doxycycline hyclate duoneb heparin k-dur lidoderm lopressor mepron norvasc oxycodone IR tab pepcid prozac solu-medrol
[2018-07-23] MEDS: Albuterol-Ipratrop 3 mg / 0.5 (3 ml) UD INH SCH ×5 (00:09→16:05)
[2018-07-23] MEDS: HYDROmorphone 0.5 mg/0.5 ml ISec IVP PRN ×2 (04:42→14:10)
[2018-07-23 06:27] LABS: BASO % 0.2 % (0.0-2.0); HEMOGLOBIN 9.9 g/dL (11.0-16.0); LYMPH # 2.4 K/uL (1.0-4.3); LYMPH % 12.7 % (20.0-40.0); MEAN CELL VOLUME 89.1 fL (81.0-99.0); MEAN CORPUSCULAR HEMOGLOBIN 29.8 pg (27.0-31.0); MEAN CORPUSCULAR HGB CONC 33.4 g/dL (33.0-37.0); MEAN PLATELET VOLUME 9.1 fL (7.2-11.7); MONO # 0.6 K/uL (0.0-0.8); MONO % 3.1 % (0.0-10.0); NEUT # 16.2 K/uL (1.8-7.0); RBC 3.32 Mil/uL (3.80-5.20); WHITE BLOOD COUNT 19.2 K/uL (4.8-10.8)
[2018-07-23 06:47] LABS: ALB/GLOB RATIO 1.4 (1.0-2.1); ALBUMIN 3.8 g/dL (3.5-5.0); ALT/SGPT 51 U/L (9-52); AST/SGOT 18 U/L (14-36); BLOOD UREA NITROGEN 27 mg/dL (7-17); CALCIUM 8.9 mg/dl (8.6-10.4); GFR NON-AFRICAN AMERICAN > 60
[2018-07-23] MEDS: MethylPREDNISolone 40 mg Vial IVP SCH (10:07)
[2018-07-23] MEDS: Atovaquone 750 mg/5 ml Susp UD PO SCH ×2 (10:09→17:40)
[2018-07-23] MEDS: Lidocaine 5% Patch TD SCH (10:11)
--- NOTE | 2018-07-23 13:04 | RAD ---
Chest x-ray single frontal view HISTORY: Postoperative evaluation. COMPARISON: 07/20/2018 Findings: Persistent mild venous congestion with mild patchy increased markings at both lung bases. Mild nodularity at the right lung base. Surgical clips with postoperative changes in the abdomen. Atherosclerotic calcification at the aortic knob. Tortuous ectatic aorta. Cardiomegaly. Biapical pleural thickening with upper lobe granulomatous changes. Degenerative changes in the spine. Impression: Persistent mild venous congestion with mild patchy increased markings at both lung bases. Mild nodularity at the right lung base. Surgical clips with postoperative changes in the abdomen. Atherosclerotic calcification at the aortic knob. Tortuous ectatic aorta. Cardiomegaly. Biapical pleural thickening with upper lobe granulomatous changes.
--- NOTE | 2018-07-23 14:32 | CP.CCUPN ---
<SalvatoreMarcellasrisandra - Last Filed: 07/23/18 14:28> CCU Subjective - Physician Review Subjective (Free Text): 07/23/18 14:29 Fausto Chase PGY1 Progress Note for Dr. Iris Castillo Patient was examined at bedside this morning. She continues to complain of pain in the abdomen near the surgical site. She reports her breathing has improved. She says she is able to walk slowly on her own. CCU Objective - Vital Signs / Intake & Output Vital Signs (Last 4 hours): Vital Signs BP 07/23/18 12:35 137/76 Intake and Output (Last 8hrs): Intake & Output 07/22/18 07/23/18 07/23/18 22:59 06:59 14:59 Intake Total 700 240 Output Total 455 5 Balance 245 -5 240 Weight 51.71 kg Intake: Intake, IV Amount 100 Left Forearm 100 Oral 600 240 Output: Drainage 5 5 Right Abdomen 5 5 Urine 450 Urine, Voided 450 - Physical Exam Head: Positive for: Atraumatic, Normocephalic Pupils: Positive for: PERRL Extroacular Muscles: Positive for: EOMI Conjunctiva: Positive for: Normal Mouth: Positive for: Moist Mucous Membranes Neck: Positive for: Normal Range of Motion Respiratory/Chest: Positive for: Decreased Breath Sounds. Negative for: Re spiratory Distress, Accessory Muscle Use, Wheezes Cardiovascular: Positive for: Regular Rate and Rhythm, Normal S1, S2. Negative for: Murmurs, Rub, Gallop Abdomen: Positive for: Normal Bowel Sounds, Other (surgical site clean/dry/intact). Negative for: Tenderness, Distention, Peritoneal Signs Genitourinary/Pelvic Exam: Positive for: Other (vega in place draining clear yellow liquid) Upper Extremity: Positive for: Normal Inspection. Negative for: Cyanosis, Edema Lower Extremity: Positive for: Normal Inspection. Negative for: Edema Neurological: Positive for: GCS=15, CN II-XII Intact, Speech Normal Skin: Positive for: Warm, Normal Color. Negative for: Dry, Rashes Psychiatric: Positive for: Alert, Oriented x 3, Normal Insight, Normal Concentration - Medications Active Medications: Active Medications Generic Name Dose Route Start Last Admin Trade Name Freq PRN Reason Stop Dose Admin Albuterol/Ipratropium 3 ml 07/15/18 20:00 07/23/18 11:07 Duoneb 3 Mg/0.5 Mg (3 Ml) Ud INH 3 ml RQ4 NORA Administration Amlodipine Besylate 5 mg 07/16/18 10:00 07/23/18 10:09 Norvasc PO 5 mg DAILY NORA Administration Atovaquone 750 mg 07/18/18 18:00 07/23/18 10:09 Mepron PO 750 mg BID NORA Administration Protocol Docusate Sodium 100 mg 07/13/18 18:00 07/23/18 09:53 Colace PO Not Given BID NORA Famotidine 20 mg 07/22/18 10:00 07/23/18 10:09 Pepcid PO 20 mg DAILY NORA Administration Fluoxetine HCl 20 mg 07/17/18 10:00 07/23/18 10:09 Prozac PO 20 mg DAILY NORA Administration Heparin Sodium (Porcine) 5,000 units 07/18/18 08:00 07/23/18 08:32 Heparin SC 5,000 units Q12H NORA Administration Hydromorphone HCl 0.5 mg 07/19/18 03:39 07/23/18 14:10 Dilaudid IVP 0.5 mg Q8H PRN Administration Pain, severe (8-10) Doxycycline Hyclate 100 mg/ 100 mls @ 100 mls/hr 07/18/18 10:00 07/23/18 10:09 Sodium Chloride IVPB 100 mls/hr Q12H NORA Administration Protocol Lidocaine 1 ea 07/14/18 17:32 07/23/18 10:11 Lidoderm TD 1 ea DAILY NORA Administration Methylprednisolone 40 mg 07/20/18 10:00 07/23/18 10:07 Solu-Medrol IVP 40 mg Q12 NORA Administration Metoprolol Tartrate 25 mg 07/22/18 10:00 07/23/18 10:08 Lopressor PO 25 mg BID NORA Administration Oxycodone HCl 5 mg 07/20/18 20:07 07/22/18 10:37 Oxycodone Immediate Release Tab PO 5 mg Q6 PRN Administration Pain, moderate (4-7) - Patient Studies Lab Studies: Lab Studies 07/23/18 07/23/18 07/22/18 Range/Units 06:14 06:10 06:08 WBC 19.2 H (4.8-10.8) K/uL RBC 3.32 L (3.80-5.20) Mil/uL Hgb 9.9 L (11.0-16.0) g/dL Hct 29.6 L (34.0-47.0) % MCV 89.1 (81.0-99.0) fL MCH 29.8 (27.0-31.0) pg MCHC 33.4 (33.0-37.0) g/dL RDW 13.0 (11.5-14.5) % Plt Count 453 H (130-400) K/uL MPV 9.1 (7.2-11.7) fL Neut % (Auto) 84.0 H (50.0-75.0) % Lymph % (Auto) 12.7 L (20.0-40.0) % [place] % (Auto) 3.1 (0.0-10.0) % Eos % (Auto) 0.0 (0.0-4.0) % Baso % (Auto) 0.2 (0.0-2.0) % Neut # (Auto) 16.2 H (1.8-7.0) K/uL Lymph # (Auto) 2.4 (1.0-4.3) K/uL [place] # (Auto) 0.6 (0.0-0.8) K/uL Eos # (Auto) 0.0 (0.0-0.7) K/uL Baso # (Auto) 0.0 (0.0-0.2) K/uL Sodium 134 (132-148) mmol/L Potassium 4.8 (3.6-5.2) mmol/L Chloride 97 L (98-107) mmol/L Carbon Dioxide 24 (22-30) mmol/L Anion Gap 18 (10-20) BUN 27 H (7-17) mg/dL Creatinine 0.5 L (0.7-1.2) mg/dL Est GFR ( Amer) > 60 Est GFR (Non-Af Amer) > 60 Random Glucose 170 H (65-105) mg/dL Calcium 8.9 (8.6-10.4) mg/dl Total Bilirubin 0.3 (0.2-1.3) mg/dL AST 18 (14-36) U/L ALT 51 (9-52) U/L Alkaline Phosphatase 263 H (38-126) U/L Lactate Dehydrogenase 659 H (313-618) U/L Total Protein 6.4 (6.3-8.3) g/dL Albumin 3.8 (3.5-5.0) g/dL Globulin 2.6 (2.2-3.9) gm/dL Albumin/Globulin Ratio 1.4 (1.0-2.1) SS-A Antibody <1.0 (<1.0) AI SS-B Ab Interp Negative (Negative) SS-B Antibody <1.0 (<1.0) AI Laboratory Results - last 24 hr 07/22/18 07/23/18 07/23/18 06:08 06:10 06:14 WBC 19.2 H RBC 3.32 L Hgb 9.9 L Hct 29.6 L MCV 89.1 MCH 29.8 MCHC 33.4 RDW 13.0 Plt Count 453 H MPV 9.1 Neut % (Auto) 84.0 H Lymph % (Auto) 12.7 L [place] % (Auto) 3.1 Eos % (Auto) 0.0 Baso % (Auto) 0.2 Neut # (Auto) 16.2 H Lymph # (Auto) 2.4 [place] # (Auto) 0.6 Eos # (Auto) 0.0 Baso # (Auto) 0.0 Sodium 134 Potassium 4.8 Chloride 97 L Carbon Dioxide 24 Anion Gap 18 BUN 27 H Creatinine 0.5 L Est GFR ( Amer) > 60 Est GFR (Non-Af Amer) > 60 Random Glucose 170 H Calcium 8.9 Total Bilirubin 0.3 AST 18 ALT 51 Alkaline Phosphatase 263 H Lactate Dehydrogenase 659 H Total Protein 6.4 Albumin 3.8 Globulin 2.6 Albumin/Globulin Ratio 1.4 SS-A Antibody <1.0 SS-B Ab Interp Negative SS-B Antibody <1.0 Radiology Impressions: Radiology Impressions Chest X-Ray 07/23/18 09:13 Impression: Persistent mild venous congestion with mild patchy increased markings at both lung bases. Mild nodularity at the right lung base. Surgical clips with postoperative changes in the abdomen. Atherosclerotic calcification at the aortic knob. Tortuous ectatic aorta. Cardiomegaly. Biapical pleural thickening with upper lobe granulomatous changes. Review of Systems - Review of Systems Review of Systems: 12 point ROS performed and negative other than what is stated in HPI Critical Care Progress Note - Nutrition Nutrition: Nutrition Category Date Time Status Heart Healthy Diet [DIET] Diets 07/20/18 Lunch Active Assessment/Plan - Assessment and Plan (Free Text) Assessment: Patient is a 58yo F with PMH HTN, colostomy, depression who presented to ED for colostomy reversal. S/p Laparotomy, extensive lysis of adhesions, colon resection, rectal resection, primary anastomosis of colon and rectum, rectal foreign body removal, myomectomy, cholecystectomy, and OnQ placement POD #10. ICU consulted for [facility] due to hypoxia. Patient now on nasal cannula. Plan: Neuro: - AAOx3 - GSC 15 - no focal deficits Cardiovascular: - h/o HTN - ECHO: diastolic dysfunction, MR, pulmonary HTN. EF >70%. - norvasc - lopressor - maintain normotension Pulm: - off high flow, sating well on nasal cannula - duonebs q4h - CXR: persistent mild venous congestion with mild patchy markings at b/l lung bases. b/l pleural thickening with upper lobe granulomatous changes. - ESR highly elevated, likely inflammatory cause of ILD - LISA +speckled - anti-SS A/B ab negative - Mepron and Doxy IV - solumedrol 40mg q12h - maintain SpO2> 92% GI: - s/p Laparotomy, extensive lysis of adhesions, colon resection, rectal resection, primary anastomosis of colon and rectum, rectal foreign body removal, myomectomy, cholecystectomy, and OnQ placement POD #10 - cleared for d/c as per Surgery team, home with drain - colace Heme: - H/H stable - no active issues ID: - leukocytosis, likely reactive - Mepron and Doxy IV Psych: - h/o anxiety/depression - continue prozac PPx GI: pepcid DVT: heparin soft diet Dispo: Likely downgrade tomorrow if pt continues to clinically improve. Patient seen and case discussed with Dr. Iris Castillo <Jigar Castillo - Last Filed: 07/23/18 18:26> CCU Objective - Vital Signs / Intake & Output Vital Signs (Last 4 hours): Vital Signs BP 07/23/18 17:36 138/76 Intake and Output (Last 8hrs): Intake & Output 07/23/18 07/23/18 07/23/18 06:59 14:59 22:59 Intake Total 720 Output Total 5 5 Balance -5 715 Weight 114 lb Intake: Oral 720 Output: Drainage 5 5 Right Abdomen 5 5 Other: # Voids Urine, Voided 2 # Bowel Movements 0 - Medications Active Medications: Active Medications Generic Name Dose Route Start Last Admin Trade Name Freq PRN Reason Stop Dose Admin Albuterol/Ipratropium 3 ml 07/15/18 20:00 07/23/18 16:05 Duoneb 3 Mg/0.5 Mg (3 Ml) Ud INH 3 ml RQ4 NORA Administration Amlodipine Besylate 5 mg 07/16/18 10:00 07/23/18 10:09 Norvasc PO 5 mg DAILY NORA Administration Atovaquone 750 mg 07/18/18 18:00 07/23/18 17:40 Mepron PO 750 mg BID NORA Administration Protocol Docusate Sodium 100 mg 07/13/18 18:00 07/23/18 17:39 Colace PO Not Given BID NORA Famotidine 20 mg 07/22/18 10:00 07/23/18 10:09 Pepcid PO 20 mg DAILY NORA Administration Fluoxetine HCl 20 mg 07/17/18 10:00 07/23/18 10:09 Prozac PO 20 mg DAILY NORA Administration Heparin Sodium (Porcine) 5,000 units 07/18/18 08:00 07/23/18 08:32 Heparin SC 5,000 units Q12H NORA Administration Hydromorphone HCl 0.5 mg 07/19/18 03:39 07/23/18 14:10 Dilaudid IVP 0.5 mg Q8H PRN Administration Pain, severe (8-10) Doxycycline Hyclate 100 mg/ 100 mls @ 100 mls/hr 07/18/18 10:00 07/23/18 10:09 Sodium Chloride IVPB 100 mls/hr Q12H NORA Administration Protocol Lidocaine 1 ea 07/14/18 17:32 07/23/18 10:11 Lidoderm TD 1 ea DAILY NORA Administration Methylprednisolone 40 mg 07/20/18 10:00 07/23/18 10:07 Solu-Medrol IVP 40 mg Q12 NORA Administration Metoprolol Tartrate 25 mg 07/22/18 10:00 07/23/18 17:36 Lopressor PO 25 mg BID NORA Administration Oxycodone HCl 5 mg 07/20/18 20:07 07/22/18 10:37 Oxycodone Immediate Release Tab PO 5 mg Q6 PRN Administration Pain, moderate (4-7) - Patient Studies Lab Studies: Lab Studies 07/23/18 07/23/18 07/22/18 Range/Units 06:14 06:10 06:08 WBC 19.2 H (4.8-10.8) K/uL RBC 3.32 L (3.80-5.20) Mil/uL Hgb 9.9 L (11.0-16.0) g/dL Hct 29.6 L (34.0-47.0) % MCV 89.1 (81.0-99.0) fL MCH 29.8 (27.0-31.0) pg MCHC 33.4 (33.0-37.0) g/dL RDW 13.0 (11.5-14.5) % Plt Count 453 H (130-400) K/uL MPV 9.1 (7.2-11.7) fL Neut % (Auto) 84.0 H (50.0-75.0) % Lymph % (Auto) 12.7 L (20.0-40.0) % [place] % (Auto) 3.1 (0.0-10.0) % Eos % (Auto) 0.0 (0.0-4.0) % Baso % (Auto) 0.2 (0.0-2.0) % Neut # (Auto) 16.2 H (1.8-7.0) K/uL Lymph # (Auto) 2.4 (1.0-4.3) K/uL [place] # (Auto) 0.6 (0.0-0.8) K/uL Eos # (Auto) 0.0 (0.0-0.7) K/uL Baso # (Auto) 0.0 (0.0-0.2) K/uL Sodium 134 (132-148) mmol/L Potassium 4.8 (3.6-5.2) mmol/L Chloride 97 L (98-107) mmol/L Carbon Dioxide 24 (22-30) mmol/L Anion Gap 18 (10-20) BUN 27 H (7-17) mg/dL Creatinine 0.5 L (0.7-1.2) mg/dL Est GFR ( Amer) > 60 Est GFR (Non-Af Amer) > 60 Random Glucose 170 H (65-105) mg/dL Calcium 8.9 (8.6-10.4) mg/dl Total Bilirubin 0.3 (0.2-1.3) mg/dL AST 18 (14-36) U/L ALT 51 (9-52) U/L Alkaline Phosphatase 263 H (38-126) U/L Lactate Dehydrogenase 659 H (313-618) U/L Total Protein 6.4 (6.3-8.3) g/dL Albumin 3.8 (3.5-5.0) g/dL Globulin 2.6 (2.2-3.9) gm/dL Albumin/Globulin Ratio 1.4 (1.0-2.1) LISA Screen (Negative) SS-A Antibody <1.0 (<1.0) AI SS-B Ab Interp Negative (Negative) SS-B Antibody <1.0 (<1.0) AI 07/21/18 Range/Units 10:00 WBC (4.8-10.8) K/uL RBC (3.80-5.20) Mil/uL Hgb (11.0-16.0) g/dL Hct (34.0-47.0) % MCV (81.0-99.0) fL MCH (27.0-31.0) pg MCHC (33.0-37.0) g/dL RDW (11.5-14.5) % Plt Count (130-400) K/uL MPV (7.2-11.7) fL Neut % (Auto) (50.0-75.0) % Lymph % (Auto) (20.0-40.0) % [place] % (Auto) (0.0-10.0) % Eos % (Auto) (0.0-4.0) % Baso % (Auto) (0.0-2.0) % Neut # (Auto) (1.8-7.0) K/uL Lymph # (Auto) (1.0-4.3) K/uL [place] # (Auto) (0.0-0.8) K/uL Eos # (Auto) (0.0-0.7) K/uL Baso # (Auto) (0.0-0.2) K/uL Sodium (132-148) mmol/L Potassium (3.6-5.2) mmol/L Chloride (98-107) mmol/L Carbon Dioxide (22-30) mmol/L Anion Gap (10-20) BUN (7-17) mg/dL Creatinine (0.7-1.2) mg/dL Est GFR ( Amer) Est GFR (Non-Af Amer) Random Glucose (65-105) mg/dL Calcium (8.6-10.4) mg/dl Total Bilirubin (0.2-1.3) mg/dL AST (14-36) U/L ALT (9-52) U/L Alkaline Phosphatase (38-126) U/L Lactate Dehydrogenase (313-618) U/L Total Protein (6.3-8.3) g/dL Albumin (3.5-5.0) g/dL Globulin (2.2-3.9) gm/dL Albumin/Globulin Ratio (1.0-2.1) LISA Screen Negative (Negative) SS-A Antibody (<1.0) AI SS-B Ab Interp (Negative) SS-B Antibody (<1.0) AI Laboratory Results - last 24 hr 07/21/18 07/22/18 07/23/18 10:00 06:08 06:10 WBC 19.2 H RBC 3.32 L Hgb 9.9 L Hct 29.6 L MCV 89.1 MCH 29.8 MCHC 33.4 RDW 13.0 Plt Count 453 H MPV 9.1 Neut % (Auto) 84.0 H Lymph % (Auto) 12.7 L [place] % (Auto) 3.1 Eos % (Auto) 0.0 Baso % (Auto) 0.2 Neut # (Auto) 16.2 H Lymph # (Auto) 2.4 [place] # (Auto) 0.6 Eos # (Auto) 0.0 Baso # (Auto) 0.0 Sodium Potassium Chloride Carbon Dioxide Anion Gap BUN Creatinine Est GFR ( Amer) Est GFR (Non-Af Amer) Random Glucose Calcium Total Bilirubin AST ALT Alkaline Phosphatase Lactate Dehydrogenase Total Protein Albumin Globulin Albumin/Globulin Ratio LISA Screen Negative SS-A Antibody <1.0 SS-B Ab Interp Negative SS-B Antibody <1.0 07/23/18 06:14 WBC RBC Hgb Hct MCV MCH MCHC RDW Plt Count MPV Neut % (Auto) Lymph % (Auto) [place] % (Auto) Eos % (Auto) Baso % (Auto) Neut # (Auto) Lymph # (Auto) [place] # (Auto) Eos # (Auto) Baso # (Auto) Sodium 134 Potassium 4.8 Chloride 97 L Carbon Dioxide 24 Anion Gap 18 BUN 27 H Creatinine 0.5 L Est GFR ( Amer) > 60 Est GFR (Non-Af Amer) > 60 Random Glucose 170 H Calcium 8.9 Total Bilirubin 0.3 AST 18 ALT 51 Alkaline Phosphatase 263 H Lactate Dehydrogenase 659 H Total Protein 6.4 Albumin 3.8 Globulin 2.6 Albumin/Globulin Ratio 1.4 LISA Screen SS-A Antibody SS-B Ab Interp SS-B Antibody Radiology Impressions: Radiology Impressions Chest X-Ray 07/23/18 09:13 Impression: Persistent mild venous congestion with mild patchy increased markings at both lung bases. Mild nodularity at the right lung base. Surgical clips with postoperative changes in the abdomen. Atherosclerotic calcification at the aortic knob. Tortuous ectatic aorta. Cardiomegaly. Biapical pleural thickening with upper lobe granulomatous changes. Critical Care Progress Note - Nutrition Nutrition: Nutrition Category Date Time Status Heart Healthy Diet [DIET] Diets 07/20/18 Lunch Active Assessment/Plan - Assessment and Plan (Free Text) Plan: Patient's hypoxic resolving currently on nasal canulla at 2 liters saturating >95% -CD4 count high: d/c mepron -likely ILD, continue taper steroids -complete abx regimen for total of 14 days, consider switching to oral abx -Pt/OT -abdominal band -surgery to manage abdominal drain -Patient remains hemodynamically stable. - Date & Time Date: 07/23/18 Time: 18:26
--- NOTE | 2018-07-23 15:04 | CP.PCM.PN ---
Subjective - Date & Time of Evaluation Date of Evaluation: 07/23/18 - Subjective Subjective: patient seen and examined today no dizziness no fever no diarrhea no vomiting no nausea no shortness of breath Objective - Vital Signs/Intake and Output Vital Signs (last 24 hours): Temp Pulse Resp BP Pulse Ox 98.1 F 77 25 H 137/76 100 07/23/18 08:00 07/23/18 10:03 07/23/18 10:03 07/23/18 12:35 07/23/18 10:03 Intake and Output: 07/23/18 07/23/18 06:59 18:59 Intake Total 340 240 Output Total 10 Balance 330 240 - Medications Medications: Current Medications Albuterol/Ipratropium (Duoneb 3 Mg/0.5 Mg (3 Ml) Ud) 3 ml INH RQ4 NORA Last Admin: 07/23/18 11:07 Dose: 3 ml Amlodipine Besylate (Norvasc) 5 mg PO DAILY [facility] Last Admin: 07/23/18 10:09 Dose: 5 mg Atovaquone (Mepron) 750 mg PO BID NORA; Protocol Last Admin: 07/23/18 10:09 Dose: 750 mg Docusate Sodium (Colace) 100 mg PO BID [facility] Last Admin: 07/23/18 09:53 Dose: Not Given Famotidine (Pepcid) 20 mg PO DAILY [facility] Last Admin: 07/23/18 10:09 Dose: 20 mg Fluoxetine HCl (Prozac) 20 mg PO DAILY [facility] Last Admin: 07/23/18 10:09 Dose: 20 mg Heparin Sodium (Porcine) (Heparin) 5,000 units SC Q12H NORA Last Admin: 07/23/18 08:32 Dose: 5,000 units Hydromorphone HCl (Dilaudid) 0.5 mg IVP Q8H PRN PRN Reason: Pain, severe (8-10) Last Admin: 07/23/18 14:10 Dose: 0.5 mg Doxycycline Hyclate 100 mg/ (Sodium Chloride) 100 mls @ 100 mls/hr IVPB Q12H NORA; Protocol Last Admin: 07/23/18 10:09 Dose: 100 mls/hr Lidocaine (Lidoderm) 1 ea TD DAILY NORA Last Admin: 07/23/18 10:11 Dose: 1 ea Methylprednisolone (Solu-Medrol) 40 mg IVP Q12 [facility]A Last Admin: 07/23/18 10:07 Dose: 40 mg Metoprolol Tartrate (Lopressor) 25 mg PO BID [facility] Last Admin: 07/23/18 10:08 Dose: 25 mg Oxycodone HCl (Oxycodone Immediate Release Tab) 5 mg PO Q6 PRN PRN Reason: Pain, moderate (4-7) Last Admin: 07/22/18 10:37 Dose: 5 mg - Labs Labs: 07/23/18 06:10 07/23/18 06:14 - Constitutional Appears: Well - Head Exam Head Exam: ATRAUMATIC, NORMAL INSPECTION, NORMOCEPHALIC - Eye Exam Eye Exam: EOMI, Normal appearance, PERRL Pupil Exam: NORMAL ACCOMODATION, PERRL - ENT Exam ENT Exam: Mucous Membranes Moist, Normal Exam - Neck Exam Neck Exam: Full ROM, Normal Inspection. absent: Lymphadenopathy - Respiratory Exam Respiratory Exam: Decreased Breath Sounds - Cardiovascular Exam Cardiovascular Exam: REGULAR RHYTHM, +S1, +S2 - GI/Abdominal Exam GI & Abdominal Exam: Soft, Diminished Bowel Sounds - Rectal Exam Rectal Exam: Deferred - Neurological Exam Neurological Exam: Oriented x3
[2018-07-23] MEDS ORDERED: Alum-Mag Hydrox-Simethicone Susp (30 mL) PO ONE (17:15)
[2018-07-23 17:36] VITALS: BP 138/76
--- NOTE | 2018-07-23 17:40 | CP.PCM.PN ---
Subjective - Date & Time of Evaluation Date of Evaluation: 07/23/18 Time of Evaluation: 11:00 - Subjective Subjective: Patient seen and examined Sitting comfortably in no distress Complaining of dyspnea on exertion and pain surgical site Denies fever chills Objective - Vital Signs/Intake and Output Vital Signs (last 24 hours): Temp Pulse Resp BP Pulse Ox 98.6 F 78 18 138/76 98 07/23/18 12:00 07/23/18 12:00 07/23/18 12:00 07/23/18 17:36 07/23/18 12:00 Intake and Output: 07/23/18 07/23/18 06:59 18:59 Intake Total 340 720 Output Total 10 5 Balance 330 715 - Medications Medications: Current Medications Albuterol/Ipratropium (Duoneb 3 Mg/0.5 Mg (3 Ml) Ud) 3 ml INH RQ4 [facility] Last Admin: 07/23/18 16:05 Dose: 3 ml Amlodipine Besylate (Norvasc) 5 mg PO DAILY [facility] Last Admin: 07/23/18 10:09 Dose: 5 mg Atovaquone (Mepron) 750 mg PO BID [facility]; Protocol Last Admin: 07/23/18 10:09 Dose: 750 mg Docusate Sodium (Colace) 100 mg PO BID [facility] Last Admin: 07/23/18 09:53 Dose: Not Given Famotidine (Pepcid) 20 mg PO DAILY [facility] Last Admin: 07/23/18 10:09 Dose: 20 mg Fluoxetine HCl (Prozac) 20 mg PO DAILY [facility] Last Admin: 07/23/18 10:09 Dose: 20 mg Heparin Sodium (Porcine) (Heparin) 5,000 units SC Q12H [facility] Last Admin: 07/23/18 08:32 Dose: 5,000 units Hydromorphone HCl (Dilaudid) 0.5 mg IVP Q8H PRN PRN Reason: Pain, severe (8-10) Last Admin: 07/23/18 14:10 Dose: 0.5 mg Doxycycline Hyclate 100 mg/ (Sodium Chloride) 100 mls @ 100 mls/hr IVPB Q12H [facility]; Protocol Last Admin: 07/23/18 10:09 Dose: 100 mls/hr Lidocaine (Lidoderm) 1 ea TD DAILY [facility] Last Admin: 05/30/19 10:11 Dose: 1 ea Methylprednisolone (Solu-Medrol) 40 mg IVP Q12 [facility] Last Admin: 07/23/18 10:07 Dose: 40 mg Metoprolol Tartrate (Lopressor) 25 mg PO BID [facility] Last Admin: 07/23/18 17:36 Dose: 25 mg Oxycodone HCl (Oxycodone Immediate Release Tab) 5 mg PO Q6 PRN PRN Reason: Pain, moderate (4-7) Last Admin: 07/22/18 10:37 Dose: 5 mg - Labs Labs: 07/23/18 06:10 07/23/18 06:14 - Head Exam Head Exam: ATRAUMATIC, NORMOCEPHALIC - ENT Exam ENT Exam: Mucous Membranes Moist - Neck Exam Neck Exam: Normal Inspection - Respiratory Exam Respiratory Exam: Clear to Ausculation Bilateral - Cardiovascular Exam Cardiovascular Exam: REGULAR RHYTHM - GI/Abdominal Exam GI & Abdominal Exam: Soft Assessment and Plan (1) Respiratory insufficiency/failure Assessment & Plan: Secondary to pneumonia/interstitial lung disease Continue tapering dose of steroids Continue antibiotics Follow-up chest x-ray Status: Acute
[2018-07-23 19:18] VITALS: PULSE 76; RESP 20; TEMP 98.3; O2SAT 99
[2018-07-23] MEDS: oxyCODONE 5 mg Immediate Release Tab PO PRN (19:20)
--- NOTE | 2018-07-24 06:39 | CP.PCM.DIS ---
Provider - Provider Date of Admission: 07/13/18 14:55 Attending physician: Bhavani Castillo MD Consults: 07/13/18 18:58 Internal Medicine Consult Routine Comment: Consulting Provider: Leslie Castillo Consulting Physician: Leslie Castillo Reason for Consult: medical managment 07/16/18 13:13 Critical Care Consult Routine Comment: Consulting Provider: Demarcus Diaz Consulting Physician: Demarcus Diaz Reason for Consult: hypoxic, tachycardic 07/17/18 08:38 Pulmonology Consult Routine Comment: Consulting Provider: Eleno Dewey Consulting Physician: Eleno Dewey Reason for Consult: hypoxia 07/18/18 15:01 Physician Consult Routine Comment: Consulting Provider: Carlos Kim Consulting Physician: Carlos Kim Reason for Consult: delirium Hospital Course - Lab Results Lab Results: Micro Results 07/16/18 14:20 Naris MRSA Culture (Admit) - Final MRSA NOT DETECTED 07/16/18 14:20 Urine,Catheterized Urine Culture - Final No Growth (<1,000 CFU/ML) Most Recent Lab Values WBC 19.2 K/uL (4.8-10.8) H 07/23/18 06:10 RBC 3.32 Mil/uL (3.80-5.20) L 07/23/18 06:10 Hgb 9.9 g/dL (11.0-16.0) L 07/23/18 06:10 Hct 29.6 % (34.0-47.0) L 07/23/18 06:10 MCV 89.1 fL (81.0-99.0) 07/23/18 06:10 MCH 29.8 pg (27.0-31.0) 07/23/18 06:10 MCHC 33.4 g/dL (33.0-37.0) 07/23/18 06:10 RDW 13.0 % (11.5-14.5) 07/23/18 06:10 Plt Count 453 K/uL (130-400) H 07/23/18 06:10 MPV 9.1 fL (7.2-11.7) 07/23/18 06:10 Neut % (Auto) 84.0 % (50.0-75.0) H 07/23/18 06:10 Lymph % (Auto) 12.7 % (20.0-40.0) L 07/23/18 06:10 [place] % (Auto) 3.1 % (0.0-10.0) 07/23/18 06:10 Eos % (Auto) 0.0 % (0.0-4.0) 07/23/18 06:10 Baso % (Auto) 0.2 % (0.0-2.0) 07/23/18 06:10 Neut # (Auto) 16.2 K/uL (1.8-7.0) H 07/23/18 06:10 Lymph # (Auto) 2.4 K/uL (1.0-4.3) 07/23/18 06:10 [place] # (Auto) 0.6 K/uL (0.0-0.8) 07/23/18 06:10 Eos # (Auto) 0.0 K/uL (0.0-0.7) 07/23/18 06:10 Baso # (Auto) 0.0 K/uL (0.0-0.2) 07/23/18 06:10 Neutrophils % (Manual) 83 % (50-75) H 07/19/18 06:07 Band Neutrophils % 2 % (0-2) 07/19/18 06:07 Lymphocytes % (Manual) 9 % (20-40) L 07/19/18 06:07 Monocytes % (Manual) 6 % (0-10) 07/19/18 06:07 Eosinophils % (Manual) 1 % (0-4) 07/15/18 07:57 Toxic Granulation Present 07/14/18 06:35 Platelet Estimate Normal (NORMAL) 07/19/18 06:07 Plt Clumps, EDTA Exchange Administrator 07/14/18 06:35 Large Platelets Present 07/14/18 06:35 Giant Platelets Present 07/14/18 06:35 RBC Morphology Normal 07/19/18 06:07 Hypochromasia (manual) Slight 07/17/18 06:00 Poikilocytosis (manual Slight 07/17/18 06:00 Anisocytosis (manual) Slight 07/17/18 06:00 ESR 130 mm/hr (0-20) H 07/18/18 18:32 Puncture Site Rb 05/24/19 07:36 pCO2 36 mm/Hg (35-45) 07/17/18 07:36 pO2 75 mm/Hg (80-100) L 07/17/18 07:36 HCO3 28.0 mmol/L (21-28) 07/17/18 07:36 ABG pH 7.49 (7.35-7.45) H 07/17/18 07:36 ABG Total CO2 28.5 mmol/L (22-28) H 07/17/18 07:36 ABG O2 Saturation 98.0 % (95-98) 07/17/18 07:36 ABG Base Excess 4.0 mmol/L (-2.0-3.0) H 07/17/18 07:36 ABG Hemoglobin 11.0 g/dL (11.7-17.4) L 07/17/18 07:36 ABG Carboxyhemoglobin 2.2 % (0.5-1.5) H 07/17/18 07:36 POC ABG HHb (Measured) 1.9 % (0.0-5.0) 07/17/18 07:36 ABG Methemoglobin 0.7 % (0.0-3.0) 07/17/18 07:36 Ramon Test Na 07/17/18 07:36 ABG Potassium 3.7 mmol/L (3.6-5.2) 07/16/18 13:00 A-a O2 Difference 308.0 mm/Hg 07/17/18 07:36 Respiratory Index 4.1 07/17/18 07:36 Hgb O2 Saturation 95.1 % (95.0-98.0) 07/17/18 07:36 Sodium 139.0 mmol/l (132-148) 07/16/18 13:00 Chloride 105.0 mmol/L (98-107) 07/16/18 13:00 Glucose 115 mg/dl (65-105) H 07/16/18 13:00 Lactate 1.1 mmol/L (0.7-2.1) 07/16/18 13:00 Liter Flow 15.0 07/16/18 13:00 Vent Mode Bipap 07/17/18 07:36 FiO2 60.0 % 07/17/18 07:36 Tidal Volume 344 07/17/18 07:36 Inspiratory BiPAP 10 07/17/18 07:36 Expiratory BiPAP 5 07/17/18 07:36 Sodium 134 mmol/L (132-148) 07/23/18 06:14 Potassium 4.8 mmol/L (3.6-5.2) 07/23/18 06:14 Chloride 97 mmol/L (98-107) L 07/23/18 06:14 Carbon Dioxide 24 mmol/L (22-30) 07/23/18 06:14 Anion Gap 18 (10-20) 07/23/18 06:14 BUN 27 mg/dL (7-17) H 07/23/18 06:14 Creatinine 0.5 mg/dL (0.7-1.2) L 07/23/18 06:14 Est GFR ( Amer) > 60 07/23/18 06:14 Est GFR (Non-Af Amer) > 60 07/23/18 06:14 POC Glucose (mg/dL) 144 mg/dL (65-110) H 07/17/18 08:14 Random Glucose 170 mg/dL (65-105) H 07/23/18 06:14 Calcium 8.9 mg/dl (8.6-10.4) 07/23/18 06:14 Phosphorus 4.2 mg/dL (2.5-4.5) 07/20/18 06:07 Magnesium 1.8 mg/dL (1.6-2.3) 07/20/18 06:07 Total Bilirubin 0.3 mg/dL (0.2-1.3) 07/23/18 06:14 AST 18 U/L (14-36) 07/23/18 06:14 ALT 51 U/L (9-52) 07/23/18 06:14 Alkaline Phosphatase 263 U/L (38-126) H 07/23/18 06:14 Lactate Dehydrogenase 659 U/L (313-618) H 07/23/18 06:14 Troponin I < 0.0120 ng/mL (0.00-0.120) 07/16/18 09:54 NT-Pro-B Natriuret Pep 1320 pg/mL (0-900) H 07/16/18 16:03 Total Protein 6.4 g/dL (6.3-8.3) 07/23/18 06:14 Albumin 3.8 g/dL (3.5-5.0) 07/23/18 06:14 Globulin 2.6 gm/dL (2.2-3.9) 07/23/18 06:14 Albumin/Globulin Ratio 1.4 (1.0-2.1) 07/23/18 06:14 Procalcitonin 0.10 NG/ML (0.19-0.49) L 07/21/18 10:00 Arterial Blood Potassium 3.7 mmol/L (3.6-5.2) 07/16/18 13:00 Urine Color Yellow (YELLOW) 07/16/18 14:20 Urine Clarity Clear (Clear) 07/16/18 14:20 Urine pH 8.0 (5.0-8.0) 07/16/18 14:20 Ur Specific [place] 1.008 (1.003-1.030) 07/16/18 14:20 Urine Protein Negative mg/dL (NEGATIVE) 07/16/18 14:20 Urine Glucose (UA) Normal mg/dL (Normal) 07/16/18 14:20 Urine Ketones Negative mg/dL (NEGATIVE) 07/16/18 14:20 Urine Blood Negative (NEGATIVE) 07/16/18 14:20 Urine Nitrate Negative (NEGATIVE) 07/16/18 14:20 Urine Bilirubin Negative (NEGATIVE) 07/16/18 14:20 Urine Urobilinogen Normal mg/dL (0.2-1.0) 07/16/18 14:20 Ur Leukocyte Esterase Neg [place]/uL (Negative) 07/16/18 14:20 Urine WBC (Auto) < 1 /hpf (0-5) 07/16/18 14:20 Urine RBC (Auto) < 1 /hpf (0-3) 07/16/18 14:20 Vancomycin Trough 23.1 ug/mL (5.0-10.0) H 07/18/18 08:41 LISA 6 Profile Positive (NEGATIVE) H 07/18/18 18:32 LISA Screen Negative (Negative) 07/21/18 10:00 LISA Titer 1:40 H 07/18/18 18:32 LISA Pattern Speckled H 07/18/18 18:32 SS-A Antibody <1.0 AI (<1.0) 07/22/18 06:08 SS-B Ab Interp Negative (Negative) 07/22/18 06:08 SS-B Antibody <1.0 AI (<1.0) 07/22/18 06:08 SS-B Ab Interp Negative (Negative) 07/22/18 06:08 Absolute Lymphs (Flow) 2088 Cells/mcL (850-3900) 07/19/18 18:04 % CD4 Cells 37 Percent (30-61) 07/19/18 18:04 Absolute CD4 Count 764 Cells/mcL (490-1740) 07/19/18 18:04 T-Help/Suppress Ratio 2.90 Ratio (0.86-5.00) 07/19/18 18:04 % CD8 Cells 13 Percent (12-42) 07/19/18 18:04 Absolute CD8 Count 264 Cells/mcL (180-1170) 07/19/18 18:04 HIV 1&2 Antibody Screen Negative (NEGATIVE) 07/18/18 15:44 Ur L.pneumophila Ag Negative (NEGATIVE) 07/20/18 05:13 Mycoplasma pneumon IgM Negative (NEGATIVE) 07/18/18 18:32 Discharge Exam - Head Exam Head Exam: ATRAUMATIC, NORMOCEPHALIC Discharge Plan - Discharge Medications Prescriptions: Prednisone [Deltasone] See Taper PO DAILY 15 Days tablet Furosemide [Lasix] 20 mg PO DAILY 30 Days tablet - Follow Up Plan Condition: GOOD Disposition: Trans to Other Acute Care Hosp Instructions: Furosemide, Prednisone, Ostomy Reversal Additional Instructions: Follow up with PMD in 2 weeks Follow up with Dr. Dewey in 2 weeks Follow up with Dr. Gavin in 2 weeks Activity as tolerated Medications as ordered Oxygen 3 Liters NC Please bring patient to the emergency room if symptoms return or worsen Referrals: Eleno Dewey MD [Staff Provider] - Carlos Kim MD [Staff Provider] - Leslie Castillo MD [Staff Provider] - Dieter Gavin MD [Staff Provider] -
== END 2018-07-23 19:55 | disposition short-term general hospital (02) | DRG 585 ==
LOC: C.SDS 05:50 → C.9S 14:55 → C.6T 18:07 → C.9I 07-16 13:41
PROVIDERS: ADMIT Internal Medicine Nephrology; ATTEND Internal Medicine Nephrology
PROC: 0FT40ZZ Resection of Gallbladder, Open Approach (ICD-10-PCS; 2018-07-13)
PROC: 0UB90ZZ Excision of Uterus, Open Approach (ICD-10-PCS; 2018-07-13)
PROC: 0DBM0ZZ Excision of Descending Colon, Open Approach (ICD-10-PCS; principal; 2018-07-13 07:30)
PROC: 0DBP0ZZ Excision of Rectum, Open Approach (ICD-10-PCS; 2018-07-13 07:30)
DX: Z43.3 Encounter for attention to colostomy (principal); J18.9 Pneumonia, unspecified organism; J96.91 Respiratory failure, unspecified with hypoxia; F33.2 Major depressive disorder, recurrent severe without psychotic features; E87.70 Fluid overload, unspecified; Z93.3 Colostomy status; K62.4 Stenosis of anus and rectum; D25.9 Leiomyoma of uterus, unspecified; I11.9 Hypertensive heart disease without heart failure; I51.7 Cardiomegaly; J81.1 Chronic pulmonary edema; J84.89 Other specified interstitial pulmonary diseases; K43.5 Parastomal hernia without obstruction or gangrene; K57.30 Diverticulosis of large intestine without perforation or abscess without bleeding; K66.0 Peritoneal adhesions (postprocedural) (postinfection); K80.20 Calculus of gallbladder without cholecystitis without obstruction; F17.210 Nicotine dependence, cigarettes, uncomplicated; I70.0 Atherosclerosis of aorta; I77.819 Aortic ectasia, unspecified site